=== PATIENT | female | born 1965 | race Caucasian/White ===

== ENCOUNTER 2024-05-25 13:25 | Outpatient (OUT) | payer BC, SELFPAY | END 2024-05-25 13:26 | disposition home or self-care (01) | LOC: SLEEP 13:25 | PROVIDERS: PCP Internal Medicine Cardiovascular Disease; Visit Provider Internal Medicine Cardiovascular Disease | DX: G47.33 Obstructive sleep apnea (adult) (pediatric) (principal) | CPT/HCPCS: 95806 ==

== ENCOUNTER 2025-03-17 14:08 | Outpatient (OUT) | payer BC, SELFPAY ==
--- NOTE | 2025-03-17 14:19 | MM_ITS ---
Patient Name: DIONICIO NUNEZ MR#: [id number] : 1965 Exam Date: 03/17/2025 Ordering Doctor: DR JASMINA TAVAREZ . RADIOLOGY REPORT PROCEDURE: MM TOMOSYNTHESIS SCREENING BI COMPARISON: MG MAMM SCREEN 3D ANGELICA CAD, 01/22/2021. MG MAMM SCREEN ANGELICA W CAD, 01/19/2020. MG MAMM SCREEN ANGELICA W CAD, 12/15/2018. MG MAMM ANGELICA SCRN W CAD DIG, 10/09/2007. INDICATIONS: Screening Calculator Name NCI Breast Cancer Risk Assessment Tool 5 Year Breast Cancer Risk 1.70% Lifetime Breast Cancer Risk 10.30% Personal Breast Cancer No Personal Ovarian Cancer No Treatments None Family Cancers Mother with breast cancer at age 58. LOCATION: [facility] BREAST COMPOSITION: The breasts are heterogeneously dense, which may obscure small masses. FINDINGS: Developing asymmetry in the lateral region of the left breast. Spot compression with targeted left breast ultrasound recommended. RIGHT BREAST: No significant suspicious finding. DIAGNOSTIC CATEGORY 0--INCOMPLETE: NEED ADDITIONAL IMAGING EVALUATION. RECOMMENDATIONS: ADDITIONAL MAMMOGRAPHIC VIEWS REQUIRED: LEFT BREAST - spot compression imaging ULTRASOUND: LEFT BREAST PLEASE NOTE: A NORMAL MAMMOGRAM DOES NOT EXCLUDE THE POSSIBILITY OF BREAST CANCER. A CLINICALLY SUSPICIOUS PALPABLE LUMP SHOULD BE BIOPSIED. Dictated by: Jesus Castro DO on 03/17/2025 at 15:44 Approved by: Jesus Castro DO on 03/17/2025 at 15:59
== END 2025-03-17 14:09 | disposition home or self-care (01) ==
LOC: MAMMO 14:09
PROVIDERS: PCP Nurse Practitioner; Visit Provider Family Medicine
DX: Z12.31 Encounter for screening mammogram for malignant neoplasm of breast (principal); Z80.3 Family history of malignant neoplasm of breast; R92.8 Other abnormal and inconclusive findings on diagnostic imaging of breast
CPT/HCPCS: 77063; 77067

== ENCOUNTER 2025-03-21 20:55 | Outpatient (OUT) | payer BC, SELFPAY ==
--- OUTSIDE RECORDS SUMMARY | 2024-07-01 07:30 | XMS_ITS ---
Author Organization [facility] in [place] Address [address] [place] [address] Care Team Providers Care Box Inspector Name Role Phone Corbin Cespedes Primary Care Provider Domenica Ceballos Unavailable [phone] Allergies No Known Allergies REASON FOR VISIT Sinus congestion, both ears feel full and hurt, cough, ACEVEDO, started friday - covid negative fridayand friday. declined covid/flu test here in the office Medications Medication SIG (Take, Route, Frequency, Duration) Notes Start Date End Date Status Aspirin Low Dose 81 MG Oral for 30 Days Active tiZANidine HCl 4 MG 2 tabs Orally qhs fo r 30 days 03/15/2024 Active Pantoprazole Sodium 40 mg Take 1 tablet orally once daily for 90 days Active Lisinopril 5 MG 1 tablet Orally Once a day for 30 days Active Amoxicillin-Pot Clavulanate 875-125 MG 1 tablet Orally every 12 hrs for 10 days 07/01/2024 Active Carvedilol 6.25 MG 1 tablet with food O rally Once daily for 30 days Active buPROPion HCl ER (XL) 150 MG 1 tablet in the morning Orally Once a day for 30 days Active Atorvastatin Calcium 80 MG TAKE ONE TABL ET BY MOUTH ONCE DAILY AT BEDTIME Oral for 30 Days Active Diclofenac Sodium 75 MG 1 tablet as need ed Orally Twice a day for 30 days 03/15/2024 Active Social History Tobacco Use: Social History Observation Description Date Details (start date - stop date) Former Smoker 09/01/1985 - 09/01/2021 Tobacco Use/Smoking Question Answer Notes Patient is a former smoker When did you start smoking? 09/01/1985 When did you stop smoking? 09/01/2021 Problems Problem Type SNOMED Code ICD Code Onset Dates Problem Status W/U Status Risk Notes Problem Sinusitis (68197977) Sinusitis (J32.9) Active confirmed Vital Signs Weight 250 lbs 07/01/2024 Height 64 in 07/01/2024 Blood pressure systolic 124 mm Hg 07/01/20 Blood pressure diastolic 80 mm Hg 024 Temperature 98.2 degrees Fahrenheit 07/01/20 BMI 42.91 kg/m2 07/01/2024 Encounters Encounter Location Date Provider Diagnosis [facility] [address] [place] [address] 07/01/2024 Domenica Ceballos Sinusitis J32.9 Assessments Encounter Date Diagnosis (ICD Code) Assessment Notes Treatment Notes Treatment Clinical Notes Section Notes 07/01/2024 Sinusitis (ICD-10 - J32.9) fu if not improving Plan Of Treatment Medication Medication Name Sig Start Date Stop Date Notes Amoxicillin-Pot Clavulanate 875-125 MG 1 tablet Orally every 12 hrs for 10 days 07/01/2024 Treatment Notes Assessment Notes Sinusitis fu if not improving Next Appt Details Follow Up: prn, Reason: Progress Notes * Darian NUNEZB:1965 ( 58 yo F)Acc No.[id number]:07/01/2024 Progress Note Patient: Lucinda KENDALL Provider: Vanna Ceballos ([facility]), [employer] :1965 A ge:58 Y S ex:Female Date:07/01/2024 Address:[address] [place], [place] [id number] Pcp:Corbin Cespedes Check In:11:24 AM ESTCheck O ut:11:38 AM EST Subjective: * Chief Complaints: * 1 . Sinus congestion, both ears feel full and hurt, cough, ACEVEDO, started friday - covid negative friday and friday. declined covid/flu test here in the office. * HPI: G eneral: sx started Sat sinus congestion, pain, pressure cough with sinus drainage sinus worse. * ROS: G eneral/Constitutional: Fever d enies. H eadache d enies. W eight loss?denies. O phthalmologic: Discharge d enies. E ye Pain d enies. I tching and redness d enies. E NT: Nasal discharge d enies. N dali congestion a dmits and pain pressure. S ore throat d enies. C ardiovascular: Chest tightness/ heavy pressure d enies. R apid heart rate d enies. S welling of extremities d enies. C hest pain d enies. ? R espiratory: Productive cough d enies. C hest pain d enies. C ough l ittle. S hortness of breath d enies. W heezing d enies. ? G astrointestinal: Abdominal pain d enies. C onstipation d enies. D ecreased appetite d enies. D iarrhea d enies. N ausea d enies. V omiting?denies. G enitourinary: Urinary incontinence d enies. P ainful urination d enies. M usculoskeletal: Back pain d enies. N patrick pain d enies. M uscle aches d enies. S kin: Rash d enies. S kin lesion(s) d enies. ? * Active Problem List J21.9 Acute bronchiolitis Modified On:09/22/2023W/U Status:confirmed M79.672 Left foot pain Modified On:11/19/2023W/U Status:confirmed J32.9 Sinusitis Modified On:07/01/2024W/U Status:confirmed * Medical History: A llergic rhinitis, Carpal tunnel syndrome, right, Subsequent ST elevation (STEMI) myocardial infarction of anterior wall, Sciatica. * Surgical History: C ardiac Stent placement , Right Rotator duff repair 2019, Shoulder Arthroscopy, left 09/08/13, left rotator cuff repair x2 , Rt knee meniscus repair . * Hospitalization/Major Diagno stic Procedure: s ee above . * Family History: F ather: , diagnosed with Unspecified heart disease. M other: alive, breast cancer, diagnosed with Other malignant neoplasm of unspecified site. S ister(s): alive, diagnosed with Chronic kidney disease, unspecified. D aughter(s): alive, crohns disease. 1 sister(s) - healthy. 2 daughter(s) - healthy. . * Social History: T obacco Use: T obacco Use/Smoking P atient is a f ormer smoker W lv did you start smoking? 0 09/01/1985 W lv did you stop smoking? 0 09/01/2021 * Medications: T aking Aspirin Low Dose(Aspirin) 81 MG Tablet Delayed Release Oral , Taking Atorvastatin Calcium 80 MG Tablet TAKE ONE TABLET BY MOUTH ONCE DAILY AT BEDTIME Oral , Taking buPROPion HCl ER (XL) 150 MG Tablet Extended Release 24 Hour 1 tablet in the morning Orally Once a day , Taking Carvedilol 6.25 MG Tablet 1 tablet with food Orally Once daily , Taking Diclofenac Sodium 75 MG Tablet Delayed Release 1 tablet as needed Orally Twice a day , Taking Lisinopril 5 MG Tablet 1 tablet Orally Once a day , Taking Pantoprazole Sodium 40 mg Tablet Delayed Release Take 1 tablet orally once daily , Taking tiZANidine HCl 4 MG Tablet 2 tabs Orally qhs , Medication List reviewed and reconciled with the patient * Allergies: N .K.D.A. Objective: * Vitals: W t:250lbs, Ht: 64 in, BP:124/80mm Hg, Temp:98.2F, BMI:42.91Index, Ht-cm: 162.56 cm, Wt-k.4 kg. * Examination: G eneral Examinations: GENERAL APPEARANCE: a lert and oriented, i n no acute distress. EYES: conjunctiva normal, sclera non-icteric. EARS: e xternal auditory canals are patent. Tympanic membranes are pearly ospina and mobile. NOSE: m ild congestion. THROAT: n ormal. LUNGS: c lear to auscultation bilaterally. CARDIO: r egular rate and rhythm, S1, S2 normal. MUSCULOSKELETAL G ait and station normal. SKIN: w arm and dry. Assessment: * Assessment: 1. S inusitis - J32.9 (Primary) Plan: * Treatment: * Preventive Medicine: Screenings/Counseling: B [place] ACTION PLAN Above Normal BMI Follow-up D ietary management education, guidance, and counseling * Follow Up: p rn * * Sign off status: Completed Visit Status: C HK (Check Out) true * Provider: Vanna Ceballos ([facility]), [employer] Date: 1 Generated for Radha landon/Vijay/Brayansmitting on: 0 03/21/2025 08:57 PM EDT History and Physical Notes * HPI (History of Present Illness) Category Sub-Category Detail Notes Category Not es General sx started Sat sinus congestion, pain, pressure cough with sinus drainage sinus worse Examination Category Sub-Category Detail Notes Category Not es General Examinations GENERAL APPEARANCE: alert a nd oriented, in no acute distress EYES: conjunctiva normal, sclera non-icteric EARS: external auditory ca nals are patent. Tympanic membranes are pearly ospina and mobile NOSE: mild congestion THROAT: normal CARDIO: regular rate and rhy thm, S1, S2 normal LUNGS: clear to auscultatio n bilaterally SKIN: warm and dry MUSCULOSKELETAL: Gait and station nor mal
--- OUTSIDE RECORDS SUMMARY | 2024-11-03 07:15 | XMS_ITS ---
Author Organization [facility] in [place] Address [address] [place] [address] Care Team Providers Care Manager Simulation Name Role Phone Corbin Cespedes Primary Care Provider Allergies No Known Allergies REASON FOR VISIT SELF PAY Left achilles tendon issue, has a spur there and every 6-12 months has trouble walking, cant wear tennis shoe Medications Medication SIG (Take, Route, Frequency, Duration) Notes Start Date End Date Status Diclofenac Sodium 75 MG 1 tablet as need ed Orally Twice a day for 30 days 03/15/2024 Active Lisinopril 5 MG 1 tablet Orally Once a day for 30 days Active Pantoprazole Sodium 40 mg Take 1 tablet orally once daily for 90 days Active predniSONE 20 MG 3 tablets Orally Onc e a day for 5 days 11/03/2024 Active tiZANidine HCl 4 MG 2 tabs Orally qhs fo r 30 days 03/15/2024 Active Carvedilol 6.25 MG 1 tablet with food O rally Once daily for 30 days Active Aspirin Low Dose 81 MG Oral for 30 Days Active Atorvastatin Calcium 80 MG TAKE ONE TABL ET BY MOUTH ONCE DAILY AT BEDTIME Oral for 30 Days Active buPROPion HCl ER (XL) 150 MG 1 tablet in the morning Orally Once a day for 30 days Active Social History Tobacco Use: Social History Observation Description Date Details (start date - stop date) Former Smoker 09/01/1985 - 09/01/2021 Tobacco Use/Smoking Question Answer Notes Patient is a former smoker When did you start smoking? 09/01/1985 When did you stop smoking? 09/01/2021 Vital Signs Weight 246.6 lbs 11/03/2024 Height 64 in 11/03/2024 Blood pressure systolic 120 mm Hg 11/04/19 25 Blood pressure diastolic 72 mm Hg 025 BMI 42.32 kg/m2 11/03/2024 Encounters Encounter Location Date Provider Diagnosis [facility] [address] [place] [address] 11/03/2024 Corbin Cespedes Left foot pain M79.6 72 and Achilles tendinitis M76.60 Assessments Encounter Date Diagnosis (ICD Code) Assessment Notes Treatment Notes Treatment Clinical Notes Section Notes 11/03/2024 Left foot pain (ICD-10 - M79.672) 11/03/2024 Achilles tendinitis (ICD-10 - M76.60) Plan Of Treatment Medication Medication Name Sig Start Date Stop Date Notes predniSONE 20 MG 3 tablets Orally Once a day for 5 days Progress Notes * Darian NUNEZB:1965 ( 59 yo F)Acc No.[id number]:11/03/2024 Progress Note Patient: Lucinda KENDALL Provider: Alexei Cespedes ([facility])MD :1965 A ge:59 Y S ex:Female Date:11/03/2024 Address:[address] [place], [place] [id number] Check In:11:12 AM ESTCheck O ut:11:54 AM EST Subjective: * Chief Complaints: * S ELF PAY Left achilles tendon issue, has a spur there and every 6-12 months has trouble walking, cant wear tennis shoe * HPI: D epression Screening: PHQ-2 (2015 Edition) L ittle interest or pleasure in doing things??Not at all F eeling down, depressed, or hopeless? N ot at all T otal Score 0 2 days ago - severe [pain - nothgin gthe previous day. * Active Problem List J21.9 Acute bronchiolitis Modified On:09/22/2023/U Status:confirmed M79.672 Left foot pain Modified On:11/19/2023/U Status:confirmed J32.9 Sinusitis Modified On:07/01/2024/U Status:confirmed * Medical History: * Surgical History: C ardiac Stent placement Right Rotator duff repair ould Arthroscopy, left 09/08/13left rotator cuff repair x2 Rt knee meniscus repair * Hospitalization/Major Diagno stic Procedure: s ee above * Family History: F ather: , diagnosed with Unspecified heart disease. M other: alive, breast cancer, diagnosed with Other malignant neoplasm of unspecified site. S ister(s): alive, diagnosed with Chronic kidney disease, unspecified. D brittanyhter(s): alive, crohns disease. 1 sister(s) - healthy. 2 daughter(s) - healthy. . * Social History: T obacco Use: T obacco Use/Smoking P atient is a f ormer smoker W hen did you start smoking? 0 09/01/1985 W hen did you stop smoking? 0 09/01/2021 * Medications: T akingAspirin Low Dose(Aspirin) 81 MG Tablet Delayed Release Oral Atorvastatin Calcium 80 MG Tablet TAKE ONE TABLET BY MOUTH ONCE DAILY AT BEDTIME Oral buPROPion HCl ER (XL) 150 MG Tablet Extended Release 24 Hour 1 tablet in the morning Orally Once a day Carvedilol 6.25 MG Tablet 1 tablet with food Orally Once daily Diclofenac Sodium 75 MG Tablet Delayed Release 1 tablet as needed Orally Twice a day Lisinopril 5 MG Tablet 1 tablet Orally Once a day Pantoprazole Sodium 40 mg Tablet Delayed Release Take 1 tablet orally once daily tiZANidine HCl 4 MG Tablet 2 tabs Orally qhs Taking Aspirin Low Dose(Aspirin) 81 MG Tablet Delayed Release Oral Taking Atorvastatin Calcium 80 MG Tablet TAKE ONE TABLET BY MOUTH ONCE DAILY AT BEDTIME Oral Taking buPROPion HCl ER (XL) 150 MG Tablet Extended Release 24 Hour 1 tablet in the morning Orally Once a day Taking Carvedilol 6.25 MG Tablet 1 tablet with food Orally Once daily Taking Diclofenac Sodium 75 MG Tablet Delayed Release 1 tablet as needed Orally Twice a day Taking Lisinopril 5 MG Tablet 1 tablet Orally Once a day Taking Pantoprazole Sodium 40 mg Tablet Delayed Release Take 1 tablet orally once daily Taking tiZANidine HCl 4 MG Tablet 2 tabs Orally qhs DiscontinuedAmoxicillin-Pot Clavulanate 875-125 MG Tablet 1 tablet Orally every 12 hrs Medication List reviewed and reconciled with the patientDiscontinued Amoxicillin-Pot Clavulanate 875-125 MG Tablet 1 tablet Orally every 12 hrs Medication List reviewed and reconciled with the patient * Allergies: N .K.D.A.no[Allergies Verified] Objective: * Vitals: W t:246.6lbs, Ht: 64 in, BP:120/72mm Hg, BMI:42.32Index, Ht-cm: 162.56 cm, Wt-k.86 kg. * Examination: A bdomen Exam:: L eft achilles tendernss - no erythmea. Assessment: * Assessment: 1. L eft foot pain - M79.672 (Primary) 2 . A chilles tendinitis - M76.60? Plan: * Treatment: * Procedure Codes: * Preventive Medicine: Screenings/Counseling: B [place] ACTION PLAN Above Normal BMI Follow-up D ietary management education, guidance, and counseling * * Sign off status: Completed Visit Status: C HK (Check Out) true * Provider: Alexei Cespedes ([facility])MD Date: 0 11/03/2024 Generated for Printi ng/Famelinag/eTransmitting on: 0 03/21/2025 08:56 PM EDT History and Physical Notes * HPI (History of Present Illness) Category Sub-Category Detail Notes Category Not es Depression Screening PHQ-2 (2015 Edition) Little interest or pleasure in doing things?: Not at all 2 days ago - severe [pain - nothgin gthe previous day Feeling down, depressed, or hopeless?: N ot at all Total Score: 0 Examination Category Sub-Category Detail Notes Category Not es Abdomen Exam: Left achilles tendernss - no erythmea
--- OUTSIDE RECORDS SUMMARY | 2025-03-17 13:12 | XMS_ITS ---
Author Organization [facility] in [place] Address [address] [place] [address] Care Team Providers Care Instruments Sales Representative Name Role Phone Corbin Cespedes Primary Care Provider REASON FOR VISIT Mammogram add on Encounters Encounter Location Date Provider Diagnosis [facility] [address] [place] [id number] 03/17/2025 Corbin Cespedes Abnormal mammogram R92.8 Assessments Encounter Date Diagnosis (ICD Code) Assessment Notes Treatment Notes Treatment Clinical Notes Section Notes 03/17/2025 Abnormal mammogram (ICD-10 - R92.8) Plan Of Treatment Pending Test Test Name Order Date BI MAMMOGRAM DIAGNOSTIC TOMOSYNTHESIS BI LATERAL 03/17/2025 BI US BREAST COMPLETE LEFT 03/17/2025 Progress Notes * ENRIQUE MelyssaPriyaB:1965 ( 59 yo F)Acc No.[id number]:03/17/2025 Patient: Melyssa KENDALLi :1965 A ge:59 Y S ex:Female Address:[address] [place] [address] Subjective: * Chief Complaints: * M ammogram add on * Medical History: * Surgical History: * Hospitalization/Major Diagno stic Procedure: * Medications: Objective: * Vitals: * Physical Examination: Assessment: * Assessment: 1. A bnormal mammogram - R92.8 (Primary) Plan: * Treatment: * Procedure Codes: * true * Date: Generated for Printi ng/Faxing/eTransmitting on: 0 03/21/2025 08:56 PM EDT
--- OUTSIDE RECORDS SUMMARY | 2025-03-21 20:57 | XMS_ITS | Patient Health Record ---
Author Organization The [facility] in [place] Address [address] [place] [address] Care Team Providers Care Jigger Machine Operator Name Role Phone Rubina Corbin Primary Care Provider Domenica Ceballos [phone] Allergies No Known Allergies Results Component Value Reference Range Notes MM tomosynthesis screening B I Reviewed date:03/17/2025 05:13:00 PM Interpretation: Performing Lab: Notes/Report: Source Facility: [place] [address] Mammography Report Signed Patient: LUCINDA NUNEZ MR#: [id number] : 1965 Acct:[id number] Age/Sex: 59 / F ADM Date: 03/17/25 Loc: MAMMO Attending Dr: Jasmina Tavarez M.D. Ordering Physician: Jasmina Tavarez M.D. Results: Date of Service: 03/17/25 Follow Up: Procedure(s): MM tomosynthesis screening BI Accession Number(s): [id number] cc: Jasmina Tavarez M.D.; Deborah Olmedo NP Patient Name: LUCINDA NUNEZ MR#: [id number] : 1965 Exam Date: 03/17/2025 Ordering Doctor: DR JASMINA TAVAREZ . RADIOLOGY REPORT PROCEDURE: MM TOMOSYNTHESIS SCREENING BI COMPARISON: MG MAMM SCREEN 3D ANGELICA CAD, 01/22/2021. MG MAMM SCREEN ANGELICA W CAD, 01/19/2020. MG MAMM SCREEN ANGELICA W CAD, 12/15/2018. MG MAMM ANGELICA SCRN W CAD DIG, 10/09/2007. INDICATIONS: Screening Calculator Name NCI Breast Cancer Risk Assessment Tool 5 Year Breast Cancer Risk 1.70% Lifetime Breast Cancer Risk 10.30% Personal Breast Cancer No Personal Ovarian Cancer No Treatments None Family Cancers Mother with breast cancer at age 58. LOCATION: [facility] BREAST COMPOSITION: The breasts are heterogeneously dense, which may obscure small masses. FINDINGS: Developing asymmetry in the lateral region of the left breast. Spot compression with targeted left breast ultrasound recommended. RIGHT BREAST: No significant suspicious finding. DIAGNOSTIC CATEGORY 0--INCOMPLETE: NEED ADDITIONAL IMAGING EVALUATION. RECOMMENDATIONS: ADDITIONAL MAMMOGRAPHIC VIEWS REQUIRED: LEFT BREAST - spot compression imaging ULTRASOUND: LEFT BREAST PLEASE NOTE: A NORMAL MAMMOGRAM DOES NOT EXCLUDE THE POSSIBILITY OF BREAST CANCER. A CLINICALLY SUSPICIOUS PALPABLE LUMP SHOULD BE BIOPSIED. Dictated by: Jesus Castro DO on 03/17/2025 at 15:44 Approved by: Jesus Castro DO on 03/17/2025 at 15:59 Dictated By: Jesus Castro D.O. Signed By: 03/17/25 1600 DD/ 1559 TD/TT: Certified Athletic Trainer: [place] [address] Mammography Report Signed Patient: LUCINDA NUNEZ MR#: [id number] : 1965 Acct:[id number] Age/Sex: 59 / F ADM Date: 03/17/25 Loc: MAMMO Attending Dr: Jasmina Tavarez M.D. Ordering Physician: Jasmina Tavarez M.D. Results: Date of Service: Follow Up: Procedure(s): MM deven osynthesis screening BI Accession Number(s): [id number] cc: Jasmina Tavarez M.D. ; Deborah Olmedo NP Patient Name: LUCINDA NUNEZ MR#: [id number] : 1965 Exam Date: 03/17/2025 Ordering Doctor: DR JASMINA TAVAREZ . RADIOLOGY REPORT PROCEDURE: MM TOMOSY NTHESIS SCREENING BI COMPARISON: MG MAMM SCREEN 3D ANGELICA CAD, 01/22/2021. MG MAMM SCREEN ANGELICA W CAD, 01/19/2020. MG M AMM SCREEN ANGELICA W CAD, 12/15/2018. MG MAMM ANGELICA SCRN W CAD DIG, 10/09/2007. INDICATIONS: Screening Calculator Name NCI Breast Cancer Risk Assessment Tool 5 Year Breast Cancer Risk 1.70% Lifetime Breast Canc er Risk 10.30% Personal Breast Cancer No Personal Ovarian Cancer No Treatments None Family Cancers Dalia dewitt with breast cancer at age 58. LOCATION: [facility] BREAST COMPOSITION: The breasts are heterogeneously dense, which may obscure small masses. FINDINGS: Developing asymmetry in the lateral region of the left breast. Spot compression wit h targeted left breast ultrasound recommended. RIGHT BREAST: No sig nificant suspicious finding. DIAGNOSTIC CATEGORY 0--INCOMPLETE: NEED ADDITIONAL IMAGING EVALUATION. RECOMMENDATIONS: ADDITIONAL MAMMOGRAP HIC VIEWS REQUIRED: LEFT BREAST - spot compression imaging ULTRASOUND: LEFT BREAST PLEASE NOTE: A LUIS ENRIQUE L MAMMOGRAM DOES NOT EXCLUDE THE POSSIBILITY OF BREAST CANCER. A CLINICALLY SUSPICIOUS PALPABLE LUMP SHOULD BE BIOPSIED. Dictated by: Jesus Castro DO on 03/17/2025 at 15:44 Approved by: Jesus Castro DO on 03/17/2025 at 15:59 Dictated By: Jesus Castro DJudy. Signed By: 03/17/25 1600 DD/ 1559 TD/TT: Certified Athletic Trainer: Reason For Referral No Information Medications Medication SIG (Take, Route, Frequency, Duration) Notes Start Date End Date Status Carvedilol 6.25 MG 1 tablet with food O rally Once daily for 30 days Active Diclofenac Sodium 75 MG 1 tablet as need ed Orally Twice a day for 30 days 03/15/2024 Active buPROPion HCl ER (XL) 150 MG 1 tablet in the morning Orally Once a day for 30 days Active Lisinopril 5 MG 1 tablet Orally Once a day for 30 days Active predniSONE 20 MG 3 tablets Orally Onc e a day for 5 days 11/03/2024 Active tiZANidine HCl 4 MG 2 tabs Orally qhs fo r 30 days 03/15/2024 Active Pantoprazole Sodium 40 mg Take 1 tablet orally once daily for 90 days Active Aspirin Low Dose 81 MG Oral for 30 Days Active Atorvastatin Calcium 80 MG TAKE ONE TABL ET BY MOUTH ONCE DAILY AT BEDTIME Oral for 30 Days Active Social History Tobacco Use: Social History Observation Description Date Details (start date - stop date) Former Smoker 09/01/1985 - 09/01/2021 Tobacco Use/Smoking Question Answer Notes Patient is a former smoker When did you start smoking? 09/01/1985 When did you stop smoking? 09/01/2021 Alcohol Screen (Audit-C) Question Answer Notes Did you have a drink containing alcohol in the p ast year? No Points 0 Interpretation Negative AUDIT-C (Standard) Question Answer Notes Did you have a drink containing alcohol in the p ast year? No Points 0 Interpretation Negative Problems Problem Type SNOMED Code ICD Code Onset Dates Problem Status W/U Status Risk Notes Problem Sinusitis (56866838) Sinusitis (J32.9) Active confirmed Problem Pain in left foot ([id number]) Left foot pain (M79.672) Active confirmed Problem Acute bronchiolitis (3682416) Acute bronchiolitis (J21.9) Active confirmed Vital Signs Temperature 98.2 degrees Fahrenheit 07/01/2024 Blood pressure diastolic 72 mm Hg 11/03/2024 Height 64 in 11/03/2024 Blood pressure systolic 120 mm Hg 11/03/2024 Weight 246.6 lbs 11/03/2024 BMI 42.32 kg/m2 11/03/2024 Encounters Encounter Location Date Provider Diagnosis [address] [address] 07/01/2024 Domenica Ceballos Sinusitis J32.[address] [address] 11/03/2024 Corbin Hoy Left foot pain M79.672 and Achilles tendinitis M76.[address] [address] 03/17/2025 Corbin Hoy Abnormal mammogram R92.8 Assessments Encounter Date Diagnosis (ICD Code) Assessment Notes Treatment Notes Treatment Clinical Notes Section Notes 07/01/2024 Sinusitis (ICD-10 - J32.9) fu if not improving 11/03/2024 Left foot pain (ICD-10 - M79.672) 11/03/2024 Achilles tendinitis (ICD-10 - M76.60) 03/17/2025 Abnormal mammogram (ICD-10 - R92.8) Plan Of Treatment Pending Test Test Name Order Date CMP (COMPLETE METABOLIC PANEL) 03/20/202 4 HEMOGLOBIN A1C (GLYCO) 11/19/2023 IRON, TOTAL 11/19/2023 LIPID PANEL (CHOL/TRIG/HDL/LDL) 11/19/19 24 CBC WITH DIFF 11/19/2023 Insulin Level 11/19/2023 STOOL OCCULT BLOOD 11/19/2023 XR FOOT LT MIN 3 VIEWS 11/19/2023 THYROID PANEL (T4/TSH/FREE T3) BI MAMMOGRAM DIAGNOSTIC TOMOSYNTHESIS BI LATERAL 03/17/2025 BI US BREAST COMPLETE LEFT 03/17/2025 Medications Administered Medication Instructions Date of Administration Dosage Notes Ketorolac Tromethamine 03/15/2024 60 mg 60 Orphenadrine Citrate 03/15/2024 60 mg 50 Medical (General) History Medical History History ICD Code Allergic rhinitis J30.9 Carpal tunnel syndrome, right G56.[address] elevation (STEMI) myocardi al infarction of anterior wall I22.0 Sciatica M54.30 Surgical History Surgery Date(Month/Year) Rt knee meniscus repair left rotator cuff repair x2 Shoulder Arthroscopy, left 09/08/13 Right Rotator duff repair 2020 Cardiac Stent placement Hospitalization History Reason Date(Month/Year) see above
--- OUTSIDE RECORDS SUMMARY | 2025-03-21 20:57 | XMS_ITS | Encounter Summary ---
Author Organization [facility] Address [address] [place] [address] Phone Care Team Providers Care Truck Loader And Unloader Name Role Phone Cesar Cespedes MD Primary Care Provider [phone] Encounter Details Date Type Department Care Team (Late st Contact Info) Description 02/28/2021 Orders Only [facility] [address] [place] [address] Conversion, Onbase Social History Tobacco Use Types Packs/Day Years Used Date Smoking Tobacco: Never Assessed Comments Unknown Sex and Gender Information Value Date Recorded Sex Assigned at Not on file Legal Sex Female 11:18 AM EST Gender Identity Not on file Sexual Orientation Not on file documented as of this encounter Plan of Treatment Upcoming Encounters Date Type Department Care Team (Late st Contact Info) Description 02/14/2026 1:40 PM EDT Office Visit [facility] [address] [facility] [address] [place] [address] Sy Hanks DO [address] [facility] 2, [facility] [address] [place] [address] Scheduled Orders Name Type Priority Associated Diagnoses Orde r Schedule OUTSIDE LAB SCAN Lab Ordered: 02/28/2021 documented as of this encounter Visit Diagnoses Not on filedocumented in this encounter Care Teams Truck Loader And Unloader Relationship Specialty Start Date End Date Cesar Cespedes MD [address] [facility] [place] [place] [address] PCP - General 10/14/19 documented as of this encounter
--- OUTSIDE RECORDS SUMMARY | 2025-03-21 20:57 | XMS_ITS | Clinical Summary ---
Author Organization [facility] Address [address] [place], [place] [address] Care Team Providers Care Supervisor Last Model Department Name Role Phone Cesar Cespedes MD Primary Care Provider [phone] Allergies No known active allergies Medications diclofenac, EC, (VOLTAREN) 75 mg EC tablet Take 75 mg by mouth twice daily. Active citalopram (CELEXA) 40 mg tablet Take 40 mg by mouth once daily. Active Active Problems Problem Noted Date Diagnosed Date Rotator cuff tear 12/05/2014 Social History Tobacco Use Types Packs/Day Years Used Date Smoking Tobacco: Every Day Cigarettes 1 35 Alcohol Use Standard Drinks/Week Comments Yes 0 (1 standard drink = 0.6 oz pur e alcohol) on occasion Comments Unknown Sex and Gender Information Value Date Recorded Sex Assigned at Not on file Legal Sex Female 3:18 PM EDT Gender Identity Not on file Sexual Orientation Not on file Last Filed Vital Signs Vital Sign Reading Time Taken Comments Blood Pressure - - Pulse - - Temperature - - Respiratory Rate - - Oxygen Saturation - - Inhaled Oxygen Concentration - - Weight 104.3 kg (230 lb) 12/05/2014 1:27 PM EDT Height 162.6 cm (5' 4 ) 12/05/2014 1:27 PM EDT Body Mass Index 39.48 12/05/2014 1:27 PM EDT Plan of Treatment Health Maintenance Due Date Last Done Comments Anxiety Screening 1984 Depression Screening 1984 HIV Screening 1984 Hepatitis C Screening 1984 DTaP,Tdap,Td Vaccine (1 - Tdap) 1985 Hepatitis B Vaccine (1 of 3 - 19+ 3-dose series) 08/31 Cervical Cancer Screening [address] Colonography 2011 Cologuard (FIT-DNA) 2011 Colonoscopy 2011 Colorectal Cancer Screening 2011 Diabetes Screening 2011 Fecal Occult Blood 2011 Lipid Screening 2011 Sigmoidoscopy 2011 Pneumococcal Vaccine: 50+ (1 of 1 - PCV) 2016 Shingrix Vaccine (1 of 2) 2016 Covid-19 Vaccine (1 - 2023- season) 2024 Influenza Vaccine (#1) 2025 Insurance [employer] BCBS MEDICAID [place] Care Teams Supervisor Last Model Department Relationship Specialty Start Date End Date Cesar Cespedes MD PCP - General Family Medicine 11/28/14
--- OUTSIDE RECORDS SUMMARY | 2025-03-21 20:57 | XMS_ITS | Patient Health Record ---
Author Organization [facility] Address [address] [place] [address] Care Team Providers Care Transmission Specialist Name Role Phone MileYash yoogonsalo Primary Care Provider Reason For Referral No Information Plan Of Treatment No Information Insurance Providers Payer Name Payer Address Payer Phone Subscriber Number Group Number Insured Name Patient Relationship to Insured Coverage Start Date Coverage End Date [facility] Medicaid [address] [place] [address] [id number] DIONICIO NUNEZ Self - patient is the insured 3 Wrap [employer] [place] BCBS [address] [place] [address] [id number] DIONICIO NUNEZ Self - patient is the insured 3 zDENTAL DQ [employer] -termed 22 [address] [place] [address] [id number] DIONICIO NUNEZ Self - patient is the insured 1 3 zDental MEDICAID CFC after [employer] -termed 22 [address] [place] [address] [id number] DIONICIO NUNEZ Self - patient is the insured 1 3 zPARAMOUN T ADVANTAGE -termed 22 [address] [place] [address] [id number] DIONICIO NUNEZ Self - patient is the insured 1 3 zMEDICAID CFC after [employer]AMOUNT -termed 22 [address] [place] [address] [id number] DIONICIO NUNEZ Self - patient is the insured 1 3 Dental [place] DQ Terminate d 24 [address] [place] [address] [id number] DIONICIO NUNEZ Self - patient is the insured 3 Dental Wrap [employer] [place] BCBS [address] [place] [address] [id number] DIONICIO NUNEZ Self - patient is the insured 3
--- OUTSIDE RECORDS SUMMARY | 2025-03-21 20:57 | XMS_ITS | Clinical Summary ---
Author Organization [facility] Address [address] [place] [address] Phone Care Team Providers Care Hand Mixer Name Role Phone Cesar Cespedes MD Primary Care Provider [phone] Allergies No known active allergies Medications buPROPion XL (Wellbutrin XL) 150 mg 24 hr tablet 1 tablet (150 mg) once daily. 4 Active pantoprazole (ProtoNix) 40 mg EC tablet Take 1 tablet (40 mg) by mouth once daily. 0 Active aspirin 81 mg EC tabletIndications:C oronary artery disease involving [place]gi[place] coronary artery of [place] heart without angina pectoris Take 1 tablet (81 mg) by mouth once daily. as directed 90 tablet 3 5 02/01/20 26 Active atorvastatin (Lipitor) 80 mg tabletIndications:M ixed hyperlipidemia Take 1 tablet (80 mg) by mouth once daily at bedtime. 90 tablet 3 5 02/15/20 26 Active lisinopril 5 mg tabletIndications:C oronary artery disease involving [place]gi[place] coronary artery of [place] heart without angina pectoris Take 1 tablet (5 mg) by mouth once daily. 90 tablet 3 5 02/15/20 26 Active nitroglycerin (Nitrostat) 0.4 mg SL tabletIndications:C oronary artery disease involving [place]gi[place] coronary artery of [place] heart without angina pectoris Place 1 tablet (0.4 mg) under the tongue every 5 minutes if needed for chest pain. 90 tablet 3 5 Active carvedilol (Coreg) 3.125 mg tabletIndications:C oronary artery disease involving [place]gi[place] coronary artery of [place]gi[place] heart without angina pectoris Take 1 tablet (3.125 mg) by mouth 2 times daily (morning and late afternoon). 60 tablet 11 5 02/15/20 26 Active Active Problems Problem Noted Date Diagnosed Date Hypersomnolence 02/14/2025 Assessment & Plan (02/15/2025 2:52 PM EDT): Hypersomnolence, BMI 42. She reports a positive nocturnal sleep study approximately 1 year ago, unfortunately she did not have insurance to follow-up with the inpatient testing. Will refer back over to sleep clinic for evaluation management. BMI 40.0-44.9, adult (Multi) 04/13/2024 Assessment & Plan (02/15/2025 2:51 PM EDT): Reviewed the merits of healthy lifestyle choices on overall cardiovascular health. Former smoker 04/13/2024 Carpal tunnel syndrome of right wrist 02/06/2024 Coronary artery disease invo lving togiak coronary artery of [place] heart without angina pectoris 02/06/2024 Assessment & Plan (02/15/2025 2:51 PM EDT): February 26, 2021 acute anterior STEMI managed emergently Dr. Hanks. Mid LAD PCI 6 Lawrence 3.5 x 22 mm Proximal RCA 30-50% Otherwise no residual coronary artery disease. Her prior angina symptom was hand and shoulder pain-denies any reoccurrence. Current daily activity greater than 4 METS Mixed hyperlipidemia 02/06/2024 Assessment & Plan (02/15/2025 2:51 PM EDT): High intensity statin We will be checking labs HTN (hypertension) 02/06/2024 Assessment & Plan (02/15/2025 2:51 PM EDT): Optimal in office S/P PTCA (percutaneous transluminal coronary ang ioplasty) 02/06/2024 Encounters Date Type Department Care Team Description 02/14/2025 1:30 PM EDT Office Visit [place] [address] [facility] [address] [place] [address] Deborah Olmedo, WATER PLANT OPERATOR-HELP DESK INTERNSHIP Hypersomnolence (Primary Dx); Mixed hyperlipidemia; Coronary artery disease involving togiak coronary artery of [place] heart without angina pectoris; Hypertension, unspecified type; BMI 40.0-44.9, adult (Multi) 02/14/2025 Travel 01/27/2025 Refill [facility] [address] [place] [address] Sy Hanks DO Coronary artery disease involving togiak coronary artery of [place]gi[place] heart without angina pectoris 01/27/2025 Refill [facility] [address] [place] [address] Sy Hanks, Hyperlipidemia, unspecified hyperlipidemia type; Coronary artery disease involving togiak coronary artery of [place]gi[place] heart without angina pectoris from Last 3 Months Immunizations Immunization Administration Dates Next Due Pfizer Purple Cap SARS-CoV-2 09/07/2021,12/06/19,11/13/2020 Family History Medical History Relation Name Comments Heart disease Father Breast cancer Mother Kidney disease Sister Relation Name Status Comments Father Mother Sister Social History Tobacco Use Types Packs/Day Years Used Date Smoking Tobacco: Former Cigarettes Smokeless Tobacco: Never Tobacco Cessation:Counseling Given: Not Answered Alcohol Use Standard Drinks/Week Comments Yes 0 (1 standard drink = 0.6 oz pur e alcohol) once in awhile Comments Unknown Sex and Gender Information Value Date Recorded Sex Assigned at Not on file Legal Sex Female 11:18 AM EST Gender Identity Not on file Sexual Orientation Not on file Last Filed Vital Signs Vital Sign Reading Time Taken Comments Blood Pressure 114/72 02/14/2025 1:33 PM EDT Pulse 75 02/14/2025 1:33 PM EDT Temperature 36.2 C (97.2 F) 03/10/2020 6:02 AM EDT Respiratory Rate 16 03/10/2020 6:02 AM EDT Oxygen Saturation - - Inhaled Oxygen Concentration - - Weight 112 kg (246 lb) 02/14/2025 1:33 PM EDT Height 162.6 cm (5' 4 ) 02/14/2025 1:33 PM EDT Body Mass Index 42.23 02/14/2025 1:33 PM EDT Plan of Treatment Upcoming Encounters Date Type Department Care Team (Late st Contact Info) Description 02/14/2026 1:40 PM EDT Office Visit [facility] [address] [facility] [address] [place] [address] Sy Hanks DO [address] [facility] [address] [place] [address] Health Maintenance Due Date Last Done Comments CT Colonography 1966 Colonoscopy 1966 Colorectal Cancer Screening 1966 FIT-DNA (Cologuard) 1966 FIT 1966 HIV Screening 1966 Lipid Panel 1966 Sigmoidoscopy 1966 Yearly Adult Physical 1966 MMR Vaccines (1 of 1 - Standard series) 1967 Hepatitis C Screening 1984 Hepatitis B Vaccines (1 of 3 - 19+ 3-dose series) 1985 Pneumococcal Vaccine (1 of 2 - PCV) 1985 Cervical Cancer Screening 1987 HPV/Cotest 1987 Pap Smear 1987 Mammogram 2006 Zoster Vaccines (1 of 2) 2016 Diabetes Screening 10/14/2020 10/14/2019 COVID-19 Vaccine (4 - 2023-2 5 season) 2024 09/07/2021, 12/05/2020, 11/13/2020 Influenza Vaccine (#1) 2025 DTaP/Tdap/Td Vaccines (2 - Tdap) 08/12/2032 08/12/2022 HIB Vaccines Aged Out No longer eligi ble based on patient's age to complete this topic HPV Vaccines Aged Out No longer eligi ble based on patient's age to complete this topic Hepatitis A Vaccines Aged Out No long er eligible based on patient's age to complete this topic IPV Vaccines Aged Out No longer eligi ble based on patient's age to complete this topic Meningococcal Vaccine Aged Out No jeanine santiago eligible based on patient's age to complete this topic Rotavirus Vaccines Aged Out No longer eligible based on patient's age to complete this topic Medical Devices Implanted Type Area Fabric Worker Supervisor Device Identifier Shelf Expiration Date Model / Serial / Lot Button, Biceps 2.6 X 12mm Case [id number] Implanted:Qty: 1 on 10/26/2019 by Jack Becerra MD Implant [employer] 12/30/2023 [id number] / / [id number] Description:Converted from [facility]. Please see archived information for full log information. [place], Biocomposite Corkscrew Ft, 5.5 X 14.7mm, W/Two 1.3 S Case [id number] Implanted:Qty: 1 on 10/26/2019 by Jack Becerra MD Implant [employer] 2021 [id number] / / [id number] Description:Converted from [facility]. Please see archived information for full log information. Drill Pin, Button, Biceps, 3.2mm Case [id number] Implanted:Qty: 1 on 10/26/2019 by Jack Becerra MD Implant [employer] [id number] / / Description:Converted from [employer] [facility] [employer] [facility]. Please see archived information for full log information. Procedures Procedure Name Priority Date/Time Associated Diagnosis Comments COMPREHENSIVE METABOLIC PANEL Routine 10/14/2019 12:10 PM EST from Last 3 Months or Most Recently Relevant to Health Maintenance Results * Comprehensive Metabolic Panel (10/14/2019 12:10 PM EST) Glucose 76 74 - 99 mg/dL [facility] Sodium 142 136 - 145 mmol/L [facility] Potassium 4.1 3.5 - 5.3 mmol/L [facility] Chloride 106 98 - 107 mmol/L [facility] Bicarbonate 28 21 - 32 mmol/L [facility] Anion Gap 12 10 - 20 mmol/L [facility] Urea Nitrogen 13 6 - 23 mg/dL [facility] Creatinine 0.90 0.50 - 1.05 mg/dL [facility] GLOMERULAR FILTRATION RATE-NON >60 >60 mL/min/1.7 3m2 [facility] GLOMERULAR FILTRATION RATE- >60 >60 mL/min/1.7 2 [facility] Comment: CALCULATIONS OF ESTIMATED GFR ARE PERFORMED USING THE MDRD STUDY EQUATION FOR THE IDMS-TRACEABLE CREATININE METHODS. CLIN CHEM 2007;53:766-72 Calcium 9.0 8.6 - 10.3 mg/dL [facility] Albumin 4.3 3.4 - 5.0 g/dL [facility] Alkaline Phosphatase 90 33 - 110 U/L [facility] Total Protein 7.1 6.4 - 8.2 g/dL [facility] AST 12 9 - 39 U/L [facility] Total Bilirubin 0.3 0.0 - 1.2 mg/dL [facility] ALT (SGPT) 11 7 - 45 U/L [facility] Comment: Patients treated with Sulfasalazine may generate falsely decreased results for ALT. 10/14/2019 12:1 0 PM EST 10/14/2019 1:02 PM EST us Jack Becerra MD LAB BLOOD ORDERABLES Final R esult [facility] from Last 3 Months or Most Recently Relevant to Health Maintenance Insurance Care Teams Hand Mixer Relationship Specialty Start Date End Date Cesar Cespedes MD [address] [place] [address] PCP - General 10/14/19
--- OUTSIDE RECORDS SUMMARY | 2025-03-21 20:57 | XMS_ITS | Encounter Summary ---
Author Organization [facility] Address [address] [place] [address] Phone Care Team Providers Care Business Lawyer Name Role Phone Cesar Cespedes MD Primary Care Provider [phone] Encounter Details Date Type Department Care Team (Late st Contact Info) Description 05/12/2021 Orders Only [facility] [address] [place] [address] Conversion, Onbase Social History Tobacco Use Types [...] Description 02/14/2026 1:40 PM EDT Office Visit [facility] [address] [facility] [address] [place] [address] Sy Hanks DO [address] [facility] 2, [facility] [address] [place] [address] Scheduled Orders Name Type Priority Associated Diagnoses Orde r Schedule OUTSIDE LAB SCAN Lab Ordered: 05/12/2021 documented as of this encounter Visit Diagnoses Not on filedocumented in this encounter Care Teams Business Lawyer Relationship Specialty Start Date End Date Cesar Cespedes MD [address] [facility] [place] [address] PCP - General 10/14/19 documented as of this encounter
--- OUTSIDE RECORDS SUMMARY | 2025-03-21 20:57 | XMS_ITS | Encounter Summary ---
Author Organization [facility] Address [address] [place] [address] Phone Care Team Providers Care Risk And Insurance Manager Name Role Phone Cesar Cespedes MD Primary Care Provider [phone] Encounter Details Date Type Department Care Team (Late st Contact Info) Description 06/08/2024 Scanned Document [facility] [address] [place] [id number] Scanning, Generic Provider Social History Tobacco Use Types Packs/Day Years Used Date Smoking Tobacco: Former Cigarettes Smokeless Tobacco: Never Alcohol Use Standard Drinks/Week Comments Yes 0 [...] Description 02/14/2026 1:40 PM EDT Office Visit [facility] [address] [facility] [address] [place] [phone] Sy Hanks DO [address] [facility] [address] [place] [address] documented as of this encounter Visit Diagnoses Not on filedocumented in this encounter Care Teams Risk And Insurance Manager Relationship Specialty Start Date End Date Cesar Cespedes MD [address] [facility] [place] [address] PCP - General 10/14/19 documented as of this encounter
--- OUTSIDE RECORDS SUMMARY | 2025-03-21 20:57 | XMS_ITS | CCD ---
Author Organization [facility] Care Team Providers Care Financial Aid Director Name Role Phone ZANOTTI, JAZMIN Unavailable Unavailable HOY, JASMINA M Unavailable Unavailable ZANOTTI, JAZMIN Unavailable Unavailable HOY, JASMINA M Unavailable Unavailable ZANOTTI, JAZMIN Unavailable Unavailable HOY, JASMINA M Unavailable Unavailable ZANOTTI, JAZMIN Unavailable Unavailable HOY, JASMINA M Unavailable Unavailable ZANOTTI, JAZMIN Unavailable Unavailable HOY, JASMINA M Unavailable Unavailable ZANOTTI, JAZMIN Unavailable Unavailable HOY, JASMINA M Unavailable Unavailable Zanotti, Jazmin Unavailable Unavailable Hoy, Jasmina M Unavailable Unavailable Theo Starks Unavailable Unavailable Homady, Lizz Unavailable Unavailable Hoy, Jasmina M Unavailable Unavailable Unavailable ORI ARCHIBALD Admitting Unavailable DR JASMINA CESPEDES Primary Care Unavailable ORI ARCHIBALD Attending Unavailable ORI ARCHIBALD Consulting Unavailable CORBY, DR FREEDMAN Admitting Unavailable CORBY, DR FREEDMAN Attending Unavailable CORBY, DR FREEDMAN Consulting Unavailable DR JASMINA CESPEDES Primary Care Unavailable ALBARO JOHNSON Attending Unavailable CORBY, DR FREEDMAN Primary Care Unavailable ALBARO JOHNSON Admitting Unavailable Domenica Ramos Unavailable MD Jasmina Cespedes Primary Care Provider [phone] SOMMER Ramos Attending Provider Domenica Ramos Attending Unavailable Domenica Ramos Admitting Unavailable Jasmina Cepsedes Primary Care Unavailable Jasmina Cespedes MD Primary Care Provider [phone] Jasmina Cespedes MD Primary Care Provider GRETCHEN PERSON Attending Unavailable JASMINA CESPEDES Primary Care Unavailable ALBARO OLMEDO Attending Unavailable JASMINA CESPEDES Primary Care Unavailable Medications Current Medications Medication Drug Class(es) Dates Sig (Normalized) Sig (Original) amoxicillin 875 mg / clavulanate 125 mg oral tablet (1 source) Penicillin-class Antibacterial Start: 07-27-2023 take 1 tablet by mouth every twelve hours Amoxicillin-Pot Clavulanate 875-125 MG 1 tablet Orally every 12 hrs for 10 day(s) Jul, Active aspirin 81 mg delayed release oral tablet (15 sources) Platelet Aggregation Inhibitor, Nonsteroidal Anti-inflammatory Drug Start: 01-31-2025 End: 01-31-2026 take 1 tablet by mouth once daily aspirin 81 mg EC tablet Indications: Coronary artery disease involving [place] coronary artery of [place] heart without angina pectoris Take 1 tablet (81 mg) by mouth once daily. as directed 90 tablet 3 01/31/2025 01/31/2026 Active Start: 02-28-2021 End: 04-13-2024 take 1 tablet by mouth once daily aspirin 81 mg EC tablet Indications: Coronary artery disease involving [place] coronary artery of [place] heart without angina pectoris TAKE ONE TABLET BY MOUTH ONCE DAILY DIRECTED 30 tablet 11 02/11/2024 Active take 1 tablet by edwin th every twenty-four hours Aspirin 81 MG 1 tablet Orally Once a day Active atorvastatin 80 mg oral tablet (14 sources) HMG-CoA Reductase Inhibitor Start: 01-31-2025 End: 02-14-2026 take 1 tablet by mouth once daily at bedtime atorvastatin (Lipitor) 80 mg tablet Indications: Mixed hyperlipidemia Take 1 tablet (80 mg) by mouth once daily at bedtime. 90 tablet 3 02/14/2025 02/14/2026 Active Start: 02-28-2021 End: 04-13-2024 take 1 tablet by mouth once daily at bedtime atorvastatin (Lipitor) 80 mg tablet Indications: Hyperlipidemia, unspecified hyperlipidemia type TAKE ONE TABLET BY MOUTH ONCE DAILY AT BEDTIME 30 tablet 11 02/11/2024 Active benzonatate 200 mg oral capsule (1 source) Non-narcotic Antitussive Start: 07-27-2023 take 1 capsule by mouth every eight hours Benzonatate 200 MG 1 capsule Orally Three times a day Jul, Active 24 hr buPROPion hydrochloride 150 mg extended release oral tablet (12 sources) Aminoketone Start: 01-07-2024 buPROPion XL (Wellbutrin XL) 150 mg 24 hr tablet 1 tablet (150 mg) once daily. 01/07/2024 Active Start: 02-26-2021 take 1 tablet by edwin th once daily buPROPion HCl ER (XL) 300 MG Oral Tablet Extended Release 24 Hour TAKE 1 TABLET DAILY DIRECTED. Quantity: 0 Refills: 0 Ordered: 18-Jul-2021 DO Start : 18-Jul-2021 Active take 1 tablet by edwin th every twenty-four hours buPROPion HCl ER (SR) 150 MG 1 tablet in the morning Orally Once a day Active carvedilol 3.125 mg oral tablet (14 sources) alpha-Adrenergic Santos, beta-Adrenergic Santos Start: 02-14-2025 End: 02-14-2026 take 1 tablet by mouth twice daily carvedilol (Coreg) 3.125 mg tablet Indications: Coronary artery disease involving [place] coronary artery of [place] heart without angina pectoris Take 1 tablet (3.125 mg) by mouth 2 times daily (morning and late afternoon). 60 tablet 11 02/14/2025 02/14/2026 Active Start: 01-31-2025 End: 02-14-2025 take 1 tablet by mouth once daily carvedilol (Coreg) 6.25 mg tablet Indications: Coronary artery disease involving [place] coronary artery of [place] heart without angina pectoris Take 1 tablet (6.25 mg) by mouth once daily. 90 tablet 3 01/31/2025 02/14/2025 Discontinued (Dose adjustment) Start: 02-11-2024 carvedilol (Co reg) 6.25 mg tablet Indications: Coronary artery disease involving [place] coronary artery of [place] heart without angina pectoris TAKE 1 TABLET DAILY 30 tablet 11 02/11/2024 Active Start: 02-28-2021 take 1 tablet by edwin th once daily Carvedilol 6.25 MG Oral Tablet Take 1 tablet daily Quantity: 90 Refills: 3 Ordered: 10-Mar-2023 Gretchen Person DO Start : 10-Mar-2023 Active doc aware one daily Start: 02-28-2021 End: 04-13-2024 take 1 tablet by mouth twice daily at mealtime Carvedilol 6.25 MG Oral Tablet TAKE ONE TABLET BY MOUTH TWICE A DAY WITH MEALS FOR 30 DAYS Quantity: 60 Refills: 0 Ordered: 28-Mar-2021 DO Start : 28-Feb-2021 Active fluticasone propionate 0.05 mg/actuat metered dose nasal spray (1 source) Corticosteroid Start: 07-27-2023 take 2 spray(s) nasal route once daily Fluticasone Propionate 50 MCG/ACT 2 sprays Nasally Once a day for 14 day(s) Jul, Active lisinopril 5 mg oral tablet (14 sources) Angiotensin Converting Enzyme Inhibitor Start: 01-31-2025 End: 02-14-2026 take 1 tablet by mouth once daily lisinopril 5 mg tablet Indications: Coronary artery disease involving [place] coronary artery of [place] heart without angina pectoris Take 1 tablet (5 mg) by mouth once daily. 90 tablet 3 02/14/2025 02/14/2026 Active Start: 02-28-2021 End: 04-13-2024 take 1 tablet by mouth once daily lisinopril 5 mg tablet Indications: Coronary artery disease involving [place] coronary artery of [place] heart without angina pectoris TAKE ONE TABLET BY MOUTH ONCE DAILY 30 tablet 11 02/11/2024 Active methylPREDNISolone 4 mg oral tablet (5 sources) Corticosteroid Start: 07-27-2023 Medrol 4 MG as directed Orally As Directed for 6 days Jul, Active Start: 05-12-2023 Medrol 4 MG as directed Orally As Directed for 6 days May, Active Start: 12-23-2019 methylPREDNISo lone 4 MG Oral Tablet Therapy Pack Please dispense one dosepack. Take as directed Quantity: 1 Refills: 0 Jazmin Bush MD Start : 23-Dec-2019 Active 21 Tablet Pack nitroglycerin 0.4 mg sublingual tablet (10 sources) Nitrate Vasodilator Start: 02-28-2021 End: 03-16-2025 nitroglycerin (Nitrostat) 0.4 mg SL tablet Indications: Coronary artery disease involving [place] coronary artery of [place] heart without angina pectoris Place 1 tablet (0.4 mg) under the tongue every 5 minutes if needed for chest pain. 90 tablet 3 02/14/2025 03/16/2025 Active pantoprazole 40 mg delayed release oral tablet (12 sources) Proton Pump Inhibitor Start: 07-24-2020 take 1 tablet by mouth once daily pantoprazole (ProtoNix) 40 mg EC tablet Take 1 tablet (40 mg) by mouth once daily. 07/24/2020 Active Completed/Discontinued Medications Medication Drug Class(es) Dates Sig (Normalized) Sig (Original) acetaminophen 325 mg / HYDROcodone bitartrate 5 mg oral tablet (2 sources) Opioid Agonist Start: 03-09-2020 HYDROcodone-Aceta minophen 5-325 MG Oral Tablet Take 1 tablet PO every 6-8 hours as needed for pain Quantity: 20 Refills: 0 Susan INGRAM Lizz Start : 09-Mar-2020 Active amoxicillin 500 mg oral capsule (2 sources) Penicillin-class Antibacterial Start: 01-25-2023 take 1 capsule by mouth every eight hours Amoxicillin 500 MG 1 capsule Orally three times a day for 10 day(s) December, Not-Taking hydrocortisone 10 mg/ml / neomycin 3.5 mg/ml / polymyxin b [id number] unt/ml otic suspension (2 sources) Aminoglycoside Antibacterial, Polymyxin-class Antibacterial, Corticosteroid Start: 01-25-2023 Neomycin-Polymyxi n-HC 3.5-11238-8 3 drops right ear Three times a day for 7 days December, Not-Taking ibuprofen 800 mg oral tablet (5 sources) Nonsteroidal Anti-inflammatory Drug Start: 02-26-2021 End: 02-28-2021 take 800 mg by mouth four times daily Ibuprofen Discontinued 800 MG PO Four times daily February 26, 2021 12:00am February 28, 2021 3:28pm Motrin TABS Refi lls: 0 Active ticagrelor 90 mg oral tablet (3 sources) Start: 02-28-2021 take 1 tablet by mouth twice daily Brilinta 90 MG Oral Tablet TAKE 1 TABLET Twice daily Quantity: 180 Refills: 3 Ordered: 14-Feb-2022 Gretchen Person DO Start : 28-Feb-2021 Active Problems Active Problems Problem Classification Problem Date Documented Date Episodic/Chronic Acute myocardial infarction (1 source) Acute myocardial infarction of anterior wall; Translations: [ST elevation (STEMI) myocardial infarction involving other coronary artery of anterior wall] 02-26-2021 Chronic Blindness and vision defects (6 sources) Disorder of vision; Translations: [Problems with sight] Chronic Coronary atherosclerosis and other heart disease (14 sources) Coronary atherosclerosis; Translations: [Coronary atherosclerosis of [place] coronary artery] Onset: 02-06-2024 04-13-2024 Chronic Disorders of lipid metabolism (14 sources) Hyperlipidemia; Translations: [Other and unspecified hyperlipidemia] Onset: 02-06-2024 4 Chronic E Codes: Cut/pierceb (1 source) Contact with sharp glass, initial encounter; Translations: [CONTACT W/SHARP GLASS INITIAL ENC] Onset: 08-14-2022 Episodic Essential hypertension (13 sources) Hypertensive disorder; Translations: [Unspecified essential hypertension] Onset: 02-06-2024 04-13-2024 Chronic Immunizations and screening for infectious disease (1 source) Encounter for immunization; Translations: [ENCOUNTER FOR IMMUNIZATION] Onset: 08-14-2022 Episodic Open wounds of extremities (4 sources) Laceration without foreign body of left thumb without damage to nail, initial encounter; Translations: [LAC NO FB LT THUMB NO DMG NAIL INIT] Onset: 08-12-2022 Episodic Other aftercare (1 source) 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; 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] Onset: 08-14-2022 Episodic Other aftercare (1 source) Other jail (current) drug therapy; Translations: [OTH GROUP HOME CURRENT DRUG THERAPY] Onset: 08-14-2022 Episodic Other connective tissue disease (10 sources) H/O: arthritis; Translations: [Personal history of arthritis] Episodic Other connective tissue disease (1 source) Achilles tendinitis, left leg Episodic Other connective tissue disease (1 source) Calcaneal spur, left foot Episodic Other ear and sense organ disorders (1 source) Unspecified acute noninfective otitis externa, right ear Episodic Other nervous system disorders (9 sources) Carpal tunnel syndrome; Translations: [Carpal tunnel syndrome] Chronic Other nervous system disorders (2 sources) Carpal tunnel syndrome of right wrist; Translations: [Carpal tunnel syndrome, right upper limb] Onset: 02-06-2024 02-06-2024 Chronic Other nervous system disorders (10 sources) Hypesthesia; Translations: [Disturbance of skin sensation] Episodic Other nervous system disorders (10 sources) Numbness and tingling sensation of skin; Translations: [Disturbance of skin sensation] Episodic Other non-traumatic joint disorders (1 source) Pain in left ankle and joints of left foot Episodic Other nutritional; endocrine; and metabolic disorders (7 sources) Obesity; Translations: [Obesity, unspecified] 02-26-2021 Chronic Other nutritional; endocrine; and metabolic disorders (4 sources) Body mass index 40+ - severely obese; Translations: [Body mass index (BMI) 40.0-44.9, adult] Onset: 04-13-2024 04-13-2024 Chronic Other nutritional; endocrine; and metabolic disorders (2 sources) Body mass index (BMI) 40.0-44.9, adult; Translations: [Body mass index (BMI) 40.0-44.9, adult (Multi)] Onset: 04-13-2024 Chronic Other upper respiratory infections (2 sources) Acute pharyngitis, unspecified; Translations: [Acute sinusitis, unspecified] Episodic Otitis media and related conditions (1 source) Otitis media, unspecified, right ear Episodic Residual codes; unclassified (3 sources) Hypersomnia; Translations: [Hypersomnia, unspecified] Onset: 02-14-2025 02-14-2025 Chronic Residual codes; unclassified (2 sources) Hypersomnia, unspecified; Translations: [Hypersomnia, unspecified] Onset: 02-14-2025 Chronic Residual codes; unclassified (10 sources) Symptom of head and neck region; Translations: [Other general symptoms] Episodic Residual codes; unclassified (1 source) Tobacco user; Translations: [Tobacco use] 02-26-2021 Episodic Unclassified (1 source) Pain in right shoulder / M25.511(ICD-9) Onset: 07-30-2018 Unclassified (2 sources) Complete rotatr-cuff tear/ruptr of r shoulder, not trauma / M75.121(ICD-9) Onset: 07-30-2018 Unclassified (1 source) Complete rotatr-cuff tear/ruptr of left shoulder, not trauma / M75.122(ICD-9) Onset: 01-12-2018 Unclassified (1 source) Impingement syndrome of left shoulder / M75.42(ICD-9) Onset: 01-12-2018 Unclassified (1 source) Pain in left shoulder / M25.512(ICD-9) Onset: 01-12-2018 Unclassified (2 sources) Impingement syndrome of right shoulder / M75.41(ICD-9) Onset: 10-27-2017 Unclassified (3 sources) CONTACT W/AND (SUSP) EXPOS COVID-19; Translations: [CONTACT W/AND (SUSP) EXPOS COVID-19] Onset: 07-20-2022 Unclassified (1 source) Pain in left ankle and joints of left foot; Translations: [Pain in left ankle and joints of left foot] Onset: 05-12-2023 Past or Other Problems Problem Classification Problem Date Documented Da te Episodic/Chronic Blindness and vision defects (4 sources) Disorder of vision; Translations: [History of Vision problems] Episodic Coronary atherosclerosis and other heart disease (11 sources) Patient post percutaneous transluminal coronary angioplasty; Translations: [Percutaneous transluminal coronary angioplasty status] Onset: 02-06-2024 04-13-2024 Episodic Other connective tissue disease (6 sources) Nontraumatic complete rupture of rotator cuff of right shoulder; Translations: [Complete rupture of rotator cuff] Resolved: 04-02-2022 Episodic Other connective tissue disease (4 sources) Nontraumatic complete rupture of rotator cuff of right shoulder; Translations: [Nontraumatic complete tear of right rotator cuff] Other lower respiratory disease (2 sources) Snoring; Translations: [Snoring] Onset: 04-13-2024 04-13-2024 Episodic Other lower respiratory disease (1 source) Snoring; Translations: [Snoring] Onset: 04-13-2024 Episodic Other nervous system disorders (4 sources) Deficient knowledge ; Translations: [Deficient knowledge of shoulder surgery] Episodic Other nervous system disorders (8 sources) Postoperative pain ; Translations: [Other acute postoperative pain] Resolved: 04-02-2022 Episodic Other non-traumatic joint disorders (10 sources) Shoulder joint pain; Translations: [Pain in joint, shoulder region] Resolved: 04-02-2022 Episodic Residual codes; unclassified (4 sources) History of tonsillectomy ; Translations: [History of History of tonsillectomy] Episodic Screening and history of mental health and substance abuse codes (12 sources) Ex-smoker; Translations: [Personal history of tobacco use] Onset: 08-14-2022 04-13-2024 Episodic Sprains and strains (10 sources) Sprain of shoulder rotator cuff; Translations: [Rotator cuff (capsule) sprain] Resolved: 04-02-2022 Episodic Unclassified (1 source) Complete rotatr-cuff tear/ruptr of r shoulder, not trauma; Translations: [Complete rotatr-cuff tear/ruptr of r shoulder, not trauma] Onset: 07-30-2018 Unclassified (1 source) Impingement syndrome of right shoulder; Translations: [Impingement syndrome of right shoulder] Onset: 10-27-2017 Unclassified (6 sources) Healthcare knowledge finding; Translations: [Deficient knowledge of shoulder surgery] Resolved: 04-02-2022 Unclassified (1 source) CONTACT W/AND (SUSP) EXPOS COVID-19; Translations: [CONTACT W/AND (SUSP) EXPOS COVID-19] Onset: 03-18-2022 NEGATED: Highlighted row has not occurred!Residual codes; unclassified (18 sources) Disease Episodic Results Test Name Value Interpretation Reference Range Facility XR ankle LT min 3V*on 2022 XR ankle LT min 3V* [facility] Other XR ankle LT min 3V* [facility] Other XR ankle LT min 3V* [address] [place] [address] [employer] Other XR ankle LT min 3V* [place] [address] [employer] Other XR ankle LT min 3V* XRay Report [facility] Other XR ankle LT min 3V* Signed [facility] Other XR ankle LT min 3V* Patient: Dionicio Nunez MR#: [id number] [facility] Other XR ankle LT min 3V* 2 [employer] Other XR ankle LT min 3V* : 1965 Acct:[id number] [employer] Other XR ankle LT min 3V* Age/Sex: 57 / F ADM Date: 05/12/23 [facility] Other XR ankle LT min 3V* Loc: XDUCLY Room: Type: [facility] [employer] Other XR ankle LT min 3V* Attending Dr: Domenica Ramos CLINICAL NURSING COORDINATOR-C [facility] Other XR ankle LT min 3V* Copies to: SOMMER Sampson [facility] Other XR ankle LT min 3V* Ordering Provider: SOMMER Sampson [facility] Other XR ankle LT min 3V* Date of Service: 05/12/23 [facility] Other XR ankle LT min 3V* XR/XR ankle LT min 3V*: LEFT ANKLE PAIN [facility] Other XR ankle LT min 3V* LEFT ANKLE - 3 views [facility] Other XR ankle LT min 3V* CLINICAL DATA: Left ankle injury a week ago with posterior medial pain and tingling. [facility] Other XR ankle LT min 3V* COMPARISON: None [facility] Other XR ankle LT min 3V* AP, lateral and oblique views were obtained. There is no evidence of fracture or dislocation. The [employer] Other XR ankle LT min 3V* talar dome is intact. Enthesophyte is present at the distal Achilles tendon. There is mild diffuse [employer] Other XR ankle LT min 3V* soft tissue swelling. [employer] Other XR ankle LT min 3V* XR/XR ankle LT min 3V* [facility] Other XR ankle LT min 3V* IMPRESSION: [facility] Other XR ankle LT min 3V* NO ACUTE BONY INJURY. [employer] Other XR ankle LT min 3V* Impression dictated by: Mamta Ramos M.D.05/12/2023 11:14 AM [facility] Other XR ankle LT min 3V* Dictation Location: [place] [address] [employer] Other XR ankle LT min 3V* Transcribed By: DAYSI 05/12/23 1116 [facility] Other XR ankle LT min 3V* Dictated By: Mamta Ramos MD 05/12/23 1111 [facility] Other XR ankle LT min 3V* Signed By: [facility] Other XR ankle LT min 3V* 05/12/23 1117 [facility] Other XR ankle LT min 3V* [facility] [place] [address] [place] [address] XRay Report Signed Patient: Dionicio Nunez MR#: [id number] 2 : 1965 Acct:[id number] Age/Sex: 57 / F ADM Date: 05/12/23 Loc: XDUCLY Room: Type: [facility] Attending Dr: Domenica NOVOA Copies to: SOMMER Sampson Ordering Provider: SOMMER Sampson Date of Service: 05/12/23 XR/XR ankle LT min 3V*: LEFT ANKLE PAIN LEFT ANKLE - 3 views CLINICAL DATA: Left ankle injury a week ago with posterior medial pain and tingling. COMPARISON: None AP, lateral and oblique views were obtained. There is no evidence of fracture or dislocation. The talar dome is intact. Enthesophyte is present at the distal Achilles tendon. There is mild diffuse soft tissue swelling. XR/XR ankle LT min 3V* IMPRESSION: NO ACUTE BONY INJURY. Impression dictated by: Mamta Ramos M.D.05/12/2023 11:14 AM Dictation Location: [facility] Transcribed By: DAYSI 05/12/231113 Dictated By: Mamta Ramos MD 05/12/231112 Signed By: 05/12/23 1114 Normal [facility] Quick Strepon 01-25-2023 S. pyogenes Org specific cx Ql (Throat) Negative [facility] Other [employer] Other Office Visit (Cardiology)on 04-02-2022 Follow-up visit Diagnoses/Problems Assessed Coronary artery disease involving [place] coronary artery of [place] heart without angina pectoris (414.01) (I25.10) HLD (hyperlipidemia) (272.4) (E78.5) HTN (hypertension) (401.9) (I10) S/P PTCA (percutaneous transluminal coronary angioplasty) (V45.82) (Z98.61) Class 2 obesity with body mass index (BMI) of 39.0 to 39.9 in adult (278.00,V85.39) (E66.9,Z68.39) Former smoker (V15.82) (Z87.891) Orders Class 2 obesity with body mass index (BMI) of 39.0 to 39.9 in adult Healthy Weight Tips; Status:Complete - Retrospective Authorization; Done: 02Apr2022 Health Maintenance Renew: Aspirin EC 81 MG Oral Tablet Delayed Release; TAKE 1 TABLET DAILY DIRECTED HLD (hyperlipidemia) Renew: Atorvastatin Calcium 80 MG Oral Tablet; TAKE 1 TABLET Bedtime SocHx: Former smoker Tobacco Use Screening; Status:Complete; Done: 02Apr2022 Patient Instructions By signing my name below, I, I, Anuja Moraes RN, am scribing for and in the presence of, ,Scribe, attest that this documentation has been prepared under the direction and in the presence of Dr. Gretchen Person, . Please bring all medicines, vitamins, and herbal supplements with you when you come to the office. Prescriptions will not be filled unless you are compliant with your follow up appointments or have a follow up appointment scheduled as per instruction of your physician. Refills should be requested at the time of your visit. Follow up in 1 year. Chief Complaint DIONICIO NUNEZ is being seen for a 6 month follow-up of. 56-year-old female returns for 6-month follow-up and she is doing well she has no cardiovascular complaints, angina or nitrate usage or hospitalizations. She did have COVID illness 2 weeks ago and is recovered from this she was treated as an outpatient sounded like she had minimal symptoms other than upper respiratory complaints. She sustained anterior [place] in January 2021 with primary revascularization of the LAD with normal left ventricular function. She remains moderately overweight but otherwise symptom-free and is active and remains on appropriate guideline directed medical therapies Recommendations: She can discontinue Brilinta, she is cleared to proceed with tooth extraction preferably on aspirin therapy, we recommend dietary discretion weight loss and exercise and will follow-up in 1 year Surgical History Problems History of Cardiac catheterization History of Knee arthroscopy History of Meniscectomy History of Percutaneous transluminal coronary angioplasty History of Rotator cuff repair History of Shoulder surgery Past Medical History Problems History of Deficient knowledge of shoulder surgery History of Eye, ear, nose, and throat symptom (780.99) (R68.89) History of arthritis (V13.4) (Z87.39) History of tonsillectomy (V45.89) (Z90.89) History of Hypesthesia (782.0) (R20.1) History of Nontraumatic complete tear of right rotator cuff (727.61) (M75.121) History of Numbness and tingling (782.0) (R20.0,R20.2) History of Pain, joint, shoulder (719.41) (M25.519) History of Post-op pain (338.18) (G89.18) History of Rotator cuff sprain (840.4) (S43.429A) History of Vision problems (V41.0) (H54.7) Current Meds Medication NameInstruction Aspirin EC 81 MG Oral Tablet Delayed ReleaseTAKE 1 TABLET DAILY DIRECTED. Atorvastatin Calcium 80 MG Oral TabletTAKE 1 TABLET Bedtime Brilinta 90 MG Oral TabletTAKE 1 TABLET Twice daily buPROPion HCl ER (XL) 300 MG Oral Tablet Extended Release 24 HourTAKE 1 TABLET DAILY DIRECTED. Carvedilol 6.25 MG Oral Tablettake 1 tablet by mouth twice a day Lisinopril 5 MG Oral TabletTAKE 1 TABLET Daily Nitroglycerin 0.4 MG [address] Tablet SublingualPL[address] 1 TABLET UNDER YOUR TONGUE EVERY 5 MINUTES NEEDED FOR CHEST PAIN FOR 3 DOSES ONLY. IF NO RELIEF, CALL 911 Pantoprazole Sodium 40 MG Oral Tablet Delayed ReleaseTAKE ONE TABLET ONCE DAILY Patient did not bring medication list or bottles. Updated verbally with patient Allergies Medication No Known Drug Allergies Recorded By: Gardenia Venegas MA; 11/18/2019 3:02:42 PM Social History Problems Daily caffeine consumption 1 cup of coffee daily. 1-2 cans of diet pepsi daily Former smoker (V15.82) (Z87.891) No alcohol use No illicit drug use Review of Systems Constitutional: not feeling tired. Cardiovascular: no intermittent leg claudication and as noted in HPI. Respiratory: shortness of breath, but no cough. Gastrointestinal: no change in bowel habits and no blood in stools. Integumentary: no skin rashes. Neurological: no seizures and no frequent falls. All other systems have been reviewed and are negative for complaint. Vitals Vital Signs Recorded: 02Apr2022 11:35AM Heart Rate68, L Radial Ywttjysd316, LUE, Sitting Heldpzlgm49, LUE, Sitting Height5 ft 4 in Xkvfpv175 lb BMI Ycrfliqyys70.48 kg/m2 BSA Calculated2.08 Tobacco Useb) No PHQ-2 #1. Over the last 2 weeks have you felt best (more content not included)... Normal [facility] Tobacco Screening.on 022 Adult depression screening assessment No [employer] [employer] 250 DO Work Phone: Tobacco use status CPHS b) No -[facility] [employer] 250 DO Work Phone: Covid-19 PCR ([facility]on 03-01 SARS-CoV-2 (COVID-19) RNA SHAYE+probe Ql (Unsp spec) Not detected Normal NOT DETECTED [facility] Comment on above: Result Comment: This test is not yet approved or cleared by the [place] FDA. When there are no FDA-approved or cleared tests available, and other criteria are met, FDA can make tests available under an emergency access mechanism called an Emergency Use Authorization (EUA). The EUA for this test is supported by the [place] of Health and Human Service's (HHS's) declaration that circumstances exist to justify the emergency use of in vitro diagnostics for the detection and/or diagnosis of the virus that causes COVID-19. This EUA will remain in effect (meaning this test can be used) for the duration of the COVID-19 declaration justifying emergency of IVDs, unless it is terminated or revoked by FDA (after which the test may no longer be used). When diagnostic testing is negative, the possibility of a false negative should be considered in the context of a patient's recent exposures and the presence of clinical signs and symptoms consistent with SARS-CoV-2. Performed By: #### C [facility] #### [facility] [address], [place] [address] Dr. Vanesa Frazier Office Visit (Cardiology)on 07-31-2021 Follow-up visit Diagnoses/Problems Assessed Coronary artery disease involving [place] coronary artery of [place] heart without angina pectoris (414.01) (I25.10) S/P PTCA (percutaneous transluminal coronary angioplasty) (V45.82) (Z98.61) HLD (hyperlipidemia) (272.4) (E78.5) HTN (hypertension) (401.9) (I10) Class 2 obesity with body mass index (BMI) of 39.0 to 39.9 in adult (278.00,V85.39) (E66.9,Z68.39) Orders Class 2 obesity with body mass index (BMI) of 39.0 to 39.9 in adult, HTN (hypertension) Healthy Weight Tips; Status:Complete - Retrospective Authorization; Done: 31Jul2021 Patient Instructions By signing my name below, I, Vy Nash LPN ,Andres, attest that this documentation has been prepared under the direction and in the presence of Dr. Gretchen Person DO. All medical record entries made by the Fidencioibe were at my direction and personally dictated by me. I have reviewed the chart and agree that the record accurately reflects my personal performance of the history, physical exam, discussion and plan. Please bring all medicines, vitamins, and herbal supplements with you when you come to the office. Prescriptions will not be filled unless you are compliant with your follow up appointments or have a follow up appointment scheduled as per instruction of your physician. Refills should be requested at the time of your visit. Follow up in 6 months Chief Complaint DOINICIO NUNEZ is being seen for a 4 month follow-up of. Patient is 55-year-old female who returns for 6-month follow-up and doing well. She had a anterior WV in January of this year underwent PCI of the LAD has normal left ventricular function. Her only comorbidity currently is hypertension and obesity. She has no cardiovascular complaints, nitrate usage. She is finishing up cardiac rehab currently. She is compliant with current medical therapies we have counseled her on dietary discretion and weight loss Recommendations, follow-up in 6 months on same therapies Surgical History Problems History of Cardiac catheterization History of Knee arthroscopy History of Meniscectomy History of Percutaneous transluminal coronary angioplasty History of Rotator cuff repair History of Shoulder surgery Past Medical History Problems History of Eye, ear, nose, and throat symptom (780.99) (R68.89) History of arthritis (V13.4) (Z87.39) History of tonsillectomy (V45.89) (Z90.89) History of Hypesthesia (782.0) (R20.1) History of Numbness and tingling (782.0) (R20.0,R20.2) History of Vision problems (V41.0) (H54.7) Current Meds Medication NameInstruction Aspirin EC 81 MG Oral Tablet Delayed ReleaseTAKE 1 TABLET DAILY DIRECTED. Atorvastatin Calcium 80 MG Oral TabletTAKE ONE TABLET BY MOUTH IN THE EVENING FOR 30 DAYS Brilinta 90 MG Oral TabletTAKE ONE TABLET BY MOUTH TWICE A DAY buPROPion HCl ER (XL) 300 MG Oral Tablet Extended Release 24 HourTAKE 1 TABLET DAILY DIRECTED. Carvedilol 6.25 MG Oral TabletTAKE ONE TABLET BY MOUTH TWICE A DAY WITH MEALS FOR 30 DAYS Lisinopril 5 MG Oral TabletTAKE ONE TABLET BY MOUTH DAILY FOR 30 DAYS Nitroglycerin 0.4 [address] Tablet SublingualPL[address] 1 TABLET UNDER YOUR TONGUE EVERY 5 MINUTES NEEDED FOR CHEST PAIN FOR 3 DOSES ONLY. IF NO RELIEF, CALL 911 Pantoprazole Sodium 40 MG Oral Tablet Delayed ReleaseTAKE ONE TABLET ONCE DAILY Allergies Medication No Known Drug Allergies Recorded By: Gardenia Venegas MA; 11/18/2019 3:02:42 PM Social History Problems Daily caffeine consumption 1 cup of coffee daily. 1-2 cans of diet pepsi daily Former smoker (V15.82) (Z87.891) No alcohol use No illicit drug use Review of Systems Constitutional: not feeling tired. Cardiovascular: no intermittent leg claudication and as noted in HPI. Respiratory: shortness of breath, but no cough. Gastrointestinal: no change in bowel habits and no blood in stools. Integumentary: no skin rashes. Neurological: no seizures and no frequent falls. All other systems have been reviewed and are negative for complaint. Vitals Vital Signs Recorded: [id number] 01:50PM Heart Rate66, L Brachial Artery Rsmqblqr735, LUE, Sitting Mrqypqryh77, LUE, Sitting Height5 ft 4 in Wwehjt762 lb BMI Fmdjthtqok12.31 kg/m2 BSA Calculated2.07 Tobacco Useb) No Fall Screeningc) Not medically indicated Signatures Electronically signed by : Gretchen Person DO; Jul 31 2021 4:32PM EST (Author) Normal [employer] Tobacco Screening.on Fall risk assessment c) Not medically indicated -[facility] 250 DO Work Phone: Tobacco use status CPHS b) No [facility] 250 DO Work Phone: HCG,SERUM QUALITATIVEon 03-01 HCG,SERUM QUALITATIVE Negative Normal Negative [facility] Comment on above: Performed By: #### A PTT #### [address] [address] History and Physical - Surgi giovanna Update < 30 dayson 03-10-2020 History and Physical - Surgical Update < 30 days History & Physical Reviewed: /Lactating: Are You no (1) Are You Currently Breastfeedingno (1) I have reviewed the History and Physical dated: 22-Feb-2020 History and Physical reviewed and relevant findings noted. Patient examined to review pertinent physical findings.: No significant changes Home Medications Reviewed: no changes noted Allergies Reviewed: no changes noted This patient has been seen and discussed with the attending physician responsible for performing the procedure: yes Consent: COVID-19 Consent: COVID-19 Risk ConsentSurgeon has reviewed sales risks related to the risk of marine COVID-19 and if they contract COVID-19 what the risks are. Signatures/Attestation/C ertification: Note Completion: Attending Provider Inpatient Certification StatementObservation patient/other outpatient visits Electronic Signatures: Theo Starks) (Signed 10-Mar-2020 07:17) Authored: History & Physical Reviewed, Consent, Signatures/Attestation/C ertification Last Updated: 10-Mar-2020 07:17 by Theo Starks () References: 1. Data Referenced From History and Physical - Surgical Update < 30 days 10-Mar-2020 07:14 Normal [facility] History and Physical - Surgical Update < 30 days History & Physical Reviewed: /Lactating: Are You no Are You Currently Breastfeedingno I have reviewed the History and Physical dated: 23-Mar-2020 History and Physical reviewed and relevant findings noted. Patient examined to review pertinent physical findings.: No significant changes Home Medications Reviewed: no changes noted Allergies Reviewed: no changes noted This patient has been seen and discussed with the attending physician responsible for performing the procedure: yes Consent: COVID-19 Consent: COVID-19 Risk ConsentSurgeon has reviewed sales risks related to the risk of marine COVID-19 and if they contract COVID-19 what the risks are. Signatures/Attestation/C ertification: Note Completion: Attending Provider Inpatient Certification StatementObservation patient/other outpatient visits Electronic Signatures: Theo Starks () (Signed 10-Mar-2020 07:14) Authored: History & Physical Reviewed, Consent, Signatures/Attestation/C ertification Last Updated: 10-Mar-2020 07:14 by Theo Starks () [facility] Preop Checkliston 03-10-2020 Preop Checklist Preop Checklist: Preop Checklist: Arrival [id number] Arrival Time05:39 Procedure Typeper pt Carpal tunnel by Dr Starks to right hand Temperature C36.2 degrees C Temperature F97.1 degrees F Heart Rate68 beats per minute Respiratory Rate16 breath per minute Blood Pressure Fhzghbof514 mm/Hg Blood Pressure Lnkziahon34 mm/Hg NPO [id number] 21:30 NPO Commentsip of water with routine med @ 0445 this am ID Band Onyes Allergy Bandno known allergies Consent Signedyes H&P Completepending Anesthesia Assessment Completedpending EKG PerformedEKG done at bedside in [facility] Chest X-Ray Performednot ordered HCG Urine Testserum drawn with IV start Chlorhexadine Bath Givennot applicable Nasal Antiseptic Appliednot applicable Hair Washednot applicable Soap and water bath with hair shampoo the night before surgerynot applicable Hat placed on prior to transportnot applicable SCD's Appliednot applicable TYRA Hose Appliednot ordered Denturesnot applicable Prostheticsnot applicable Hearing Aidsnot applicable Valuables Securednot applicable Glasses / Contactspt wearing glasses to holding room Bowel Prepno Othermetal/implants: anchors in both shoulders ; last cigarette this am; denies alcohol or illicit drug use Cardiovascular Assessment: Apicaldeferred to anesthesia Radial Pulsesdeferred to anesthesia Pedal Pulsesdeferred to anesthesia Extremitiesdeferred to anesthesia Central Venous Access Devicenot applicable in ACC Respiratory Assessment: Respirationsdeferred to anesthesia Air Exchangedeferred to anesthesia Breath Soundsdeferred to anesthesia Neurological Assessment: Level of Consciousnessalert, oriented Mobilitymoves all extremities Able to Express Selfyes Age Appropriateyes Emotional Statuscalm Preop Education: Surgical Site Infection Preventionno Pain Scales and Managementyes Language / Communication: Language / CommunicationEnglish Electronic Signatures: Franny Chao (RN) (Signed 10-Mar-2020 06:08) Authored: Preop Checklist Last Updated: 10-Mar-2020 06:08 by Franny Chao (LUCA) Normal [facility] CORONAVIRUS 2019, SCREEN ASY MPTOMATICon 03-08-2020 CORONAVIRUS 2019,PCR NOT DETECTED Normal Not Detected [facility] Comment on above: Result Comment: . This assay is designed to detect SARS-CoV-2 based on replication of specific regions of the RNA from the SARS-CoV-2 virus. A Not Detected result does not preclude 2019-nCoV infection since the adequacy of sample collection and/or low viral burden may result in presence of viral nucleic acids below the clinical sensitivity of this test method. Fact sheet for providers: https://www.fda.gov/media/526721/download Fact sheet for patients: https://www.fda.gov/media/305769/download This test has received FDA Emergency Use Authorization [EUA] and has been verified by [facility] ([facility]). This test is only authorized for the duration of time that circumstances exist to justify the authorization of the emergency use of in vitro diagnostic tests for the detection of SARS-CoV-2 virus and/or diagnosis of COVID-19 infection under section 564(b)(1) of the Act, 21 U.S.C. 360bbb-3(b)(1), unless the authorization is terminated or revoked sooner. [facility] is certified under CLIA-88 as qualified to perform high complexity testing. Testing is performed in the [facility] laboratories located at [address] [place] [address]. Performed By: #### C OVSC #### [facility] [address] [place] [address] CORONAVIRUS 2019, SCREEN ASY MPTOMATICon 03-07-2020 Lab Specimen Source Nasal, Nasopharyngeal Normal [facility] Comment on above: Performed By: #### C OVSC #### [facility] [address] [place] [address] Otheron 11-18-2019 XR Shoulder 2 views Interpreted by: JAZMIN BUSH11/18/19 16:01MRN: [id number] Name: DIONICIO NUNEZ STUDY:SHOULDER, CMPLT, MIN 2 VIEWS; Right; 11/18/2019 3:08 pm INDICATION:pain. ORDERING CLINICIAN:JAZMIN BUSH FINDINGS:Two views right shoulder arch view and AP view xutr-vsudtqrjiev-qfojdcx antonio glenohumeral joint with bicep button tenodesisfixation in good position and good alignment, no fracture nodislocation noted Electronically signed by: JAZMIN BUSH 11/18/19 16:01 Normal [facility] Work Phone: SHOULDER, CMPLT, MIN 2 VIEWS on 11-18-2019 SHOULDER, CMPLT, MIN 2 VIEWS Patient Name: DIONICIO NUNEZ STUDY: SHOULDER, CMPLT, MIN 2 VIEWS; Right; 11/18/2019 3:08 pm INDICATION: pain. ACCESSION NUMBER(S): [id number] ORDERING CLINICIAN: JAZMIN BUSH FINDINGS: Two views right shoulder arch view and AP view well-aligned well-positioned glenohumeral joint with bicep button tenodesis fixation in good position and good alignment, no fracture no dislocation noted Electronically signed by: JAZMIN BUSH MD Normal [facility] Surgical Pathologyon 10-26-2019 [facility] Name DIONICIO NUNEZBryanna Pathologist: TONY LOVE MD Date of Procedure: 10/26/2019 Date Received: 10/26/2019 Date Reported 11/02/2019 Submitting Physician: JAZMIN BUSH M.D. Location: [facility] Copy To/Referring/Attending: ANAID BAEZA DO Other External # FINAL DIAGNOSIS A. RIGHT BICEPS, TENDON: --DENSE FIBROUS TISSUE AND FIBROCARTILAGE WITH DEGENERATIVE CHANGES Interpretation performed at: [facility] Department of Pathology [address] [place], [place] [id number] Electronically Signed Out By TONY OLVE MD/ISABELLA By the signature on this report, the individual or group listed as making the Final Interpretation/Diagnosis certifies that they have reviewed this case. Clinical History: RIGHT SHOULDER IMPINGEMENT, ROTATOR CUFF TEAR, BICEPS TEAR Specimens Submitted As: A: RIGHT BICEPS, TENDON Gross Description: Received in formalin, labeled with the patient's name, hospital number, and Right Biceps Tendon , is one pink to pale yellow, cylindrical, rubbery tissue fragment, measuring 6.8 x 1.1 x 0.5 cm. The fragment is serially sectioned. Records Clerk sections are submitted in one cassette. TAS tas/10/26/2019 Normal [facility] HCG, Serum - Qualitativeon 0 10-26-2019 HCG ( test) Ql Negative Negative -[facility] Work Phone: HCG,SERUM QUALITATIVEon 10-03 HCG,SERUM QUALITATIVE Negative Normal Negative [facility] Comment on above: Performed By: #### H CGS #### [address] [address] History and Physical - Surgi giovanna Update < 30 dayson 10-26-2019 History and Physical - Surgical Update < 30 days History & Physical Reviewed: /Lactating: Are You no Are You Currently Breastfeedingno I have reviewed the History and Physical dated: 25-Oct-2019 History and Physical reviewed and relevant findings noted. Patient examined to review pertinent physical findings.: No significant changes Home Medications Reviewed: no changes noted Allergies Reviewed: no changes noted This patient has been seen and discussed with the attending physician responsible for performing the procedure: yes Signatures/Attestation/C ertification: Note Completion: Attending Provider Inpatient Certification StatementObservation patient/other outpatient visits Electronic Signatures: Jazmin Bush) (Signed 26-Oct-2019 06:51) Authored: History & Physical Reviewed, Signatures/Attestation/C ertification Last Updated: 26-Oct-2019 06:51 by Jazmin Bush) Normal [facility] Otheron 10-26-2019 Name DIONICIO NUNEZ Pathologist: TONY LOVE, MDDate of Procedure: 10/26/2019Date Received: 10/26/2019Date Reported 11/02/2019Submitting Physician: JAZMIN BUSH M.D.Location: [facility] Copy To/Referring/Attending:Nava BAEZA, Other External # FINAL DIAGNOSISA. RIGHT BICEPS, TENDON: --DENSE FIBROUS TISSUE AND FIBROCARTILAGE WITH DEGENERATIVE CHANGESInterpretation performed at:[facility] [place] [phone]: Electronically Signed Out By TONY LOVE MD/[facility] the signature on this report, the individual or group listed as making theFinal Interpretation/Diagnosis certifies that they have reviewed this case. Clinical History:RIGHT SHOULDER IMPINGEMENT, ROTATOR CUFF TEAR, BICEPS TEAR Specimens Submitted As:A: RIGHT BICEPS, TENDON Gross Description:Received in formalin, labeled with the patient's name, hospital number, and Right Biceps Tendon , is one pink to pale yellow, cylindrical, rubbery tissuefragment, measuring 6.8 x 1.1 x 0.5 cm. The fragment is serially sectioned.Records Clerk sections are submitted in one cassette.Mary Ellen/ 0 [facility] Work Phone: Preop Checkliston 10-26-2019 Preop Checklist Preop Checklist: Preop Checklist: Arrival [id number] Arrival Time05:40 Procedure Typeshoulder rotator cuff repair per pt NPO [id number] 23:00 ID Band Onyes Allergy Bandno known allergies Consent Signedpending H&P Completepending Anesthesia Assessment Completedpending EKG Performedsee results tab Chest X-Ray Performedsee results tab HCG Urine Testblood drawn Chlorhexadine Bath Givennot applicable Nasal Antiseptic Appliednot applicable Hair Washednot applicable Soap and water bath with hair shampoo the night before surgerynot applicable Hat placed on prior to transportnot applicable SCD's Appliednot applicable TYRA Hose Appliedyes Denturesnot applicable Prostheticsnot applicable Hearing Aidsnot applicable Valuables Securedsent with family Glasses / Contactsnot applicable Bowel Prepno Neurological Assessment: Level of Consciousnessalert, oriented Mobilitymoves all extremities Able to Express Selfyes Age Appropriateyes Emotional Statuscalm Preop Education: Surgical Site Infection Preventionyes Pain Scales and Managementyes Language / Communication: Language / CommunicationEnglish Electronic Signatures: Gaby Saldaña (RN) (Signed 26-Oct-2019 05:56) Authored: Preop Checklist Last Updated: 26-Oct-2019 05:56 by Gaby Saldaña (RN) Normal [facility] History and Physicalon 10-25 History and Physical History of Present Illness: Admission Reason: Right shoulder pain HPI: DIONICIO NUNEZ is a 54 year old Female Patient seen and evaluated for right shoulder pain HPI patient with right shoulder pain for almost 5 full years. She has been getting by utilizing conservative measures which have helped her up till this time. MRI has shown rotator cuff tearing after risks benefits alternatives were discussed patient elects to proceed with right shoulder arthroscopy which will be performed to 19/01/2020 at [facility]. Past medical hx osteoarthritis and acid reflux past surgical hx left shoulder arthroscopy Social hx unemployed, , denies substance abuse, 1-2 all call at beverages per year, does smoke cigarettes family hx osteoarthritis ROS noncontributory PE head normocephalic atraumatic wears corrective lenses heart regular rate and rhythm no murmurs rubs or gallops appreciated lungs clear to auscultation bilaterally abd obese soft nontender normoactive bowel sounds 4 quadrants extremity right shoulder forward flexion to 140, abduction of 80, external rotation of 50, internal rotation posterior iliac crest impression right shoulder impingement and rotator cuff tendon tearing plan right shoulder arthroscopy subacromial decompression rotator cuff repair possible long head biceps tenodesis Patient's past medical history, allergies, surgical history, review of systems, family history, social history, medication list are all reviewed and documented on the chart. Allergies: No Known Allergies: Medications Prior to Admission: Admission Medication Reconciliation has not been completed for this patient. Signatures/Attestation/C ertification: Note Completion: Attending Provider Inpatient Certification StatementObservation patient/other outpatient visits Electronic Signatures: Jazmin Morrow (MARLEY) (Signed 25-Oct-2019 10:48) Authored: History of Present Illness, Allergies, Medications Prior to Admission, Objective, Signatures/Attestation/C ertification Last Updated: 25-Oct-2019 10:48 by Jazmin Morrow (MARLEY) [facility] Patient Profile - Preop v2on 10-22-2019 Patient Profile - Preop v2 Profile: Initial Info: How to be AddressedLori Spoken Language PreferredEnglish Source of Informationpatient Are you currently using the Personal Electronic Health Record or [employer] Instructions Givenappropriate clothing, center location, bring responsible adult as the cdl company driver (procedure may be cancelled if no cdl company driver), remove jewerly/piercings, bring glasses/contacts case Stated Reason for AdmissionRight rotator cuff surgery Primary Contact Name and NumberLg Bermudez [phone] Patient Belongingsremains with patient Patient Belongings Remaining with Patientclothing Medications Brought to Hospitalno General Health: Weight in kg102 kilogram(s) Weight in xfl124 pound(s) Weight Methodstated Height in cm162.5 centimeter(s) Height in feet5 feet Height in inches4 inch(es) Height Methodstated BMI (kg/m2)38.627 square meter Patient or Family Member Reaction to Anesthesiano previous reaction; no previous family member reaction; left shoulder - metals Left shoulder rotator cuff repair with hardware Tonsillectomy Arthroscopy of right knee tubal ligation Blood Avoidance/Restrictionsno ne Previous Transfusion Reactionno Health Mgmt: Symptoms/Conditions Managed at Homegastrointestinal; musculoskeletal; obstetric/gynecologic; peripheral/neurovascular ; respiratory Are You Currently Breastfeedingno Gastrointestinal Symptoms/Conditionsreflu x/heartburn Musculoskeletal Symptoms/Conditionsosteo arthritis Musculoskeletal Symptoms/Conditions Commenttorn right rotator cuff VICE CHAIR Symptoms/Conditions CommentLMP - 6 months ago Peripheral Neurovascular Symptoms/Conditionsvaric osities Respiratory Symptoms/Conditionssleep disordered breathing; seasonal allergies Respiratory Symptoms/Conditions Commentsnores Barriers to Managing Healthnone Are You no Relationship/Environ: Resource/Environmental Concernsnone Services Anticipated at Transitionnone Lives Withspouse Living Arrangementshouse [facility]ated [facility] Substance: Current or Former Substance Use never: e-Cigarette/Vaping, Street Drugs YES: Cigarette/Tobacco, Alcohol Tobacco Cessation Education (provide if tobacco use within the last 12 mos)yes Other Tobacco Use Comments1 PPD smoker Alcohol Use Statuscurrent alcohol Alcohol Amount1-2 drinks Alcohol Frequencymonthly or less Alcohol Typewine Problems Related to Alcohol Useno Risk Screens: Advance Directive/DNRno Advance Directive Mental Healthnot applicable During the past month, have you often been bothered by feeling down, depressed or hopelessno During the past month, have you often had little interest or pleasure in doing thingsno Have you had any thoughts of harming yourselfno Have you had any thoughts of harming anyone elseno Are you or have you been threatened or abused physically,emotionally or sexually abused by anyoneno Do you feel UNSAFE going back to the place you are livingno Patient is Able to be Assessed for Learningyes Factors Influencing Readiness to Learninterest in learning; motivation to learn Factors that Impact Ability to Learnnone Devices/Methods Used to Communicateglasses Learning Preferencesskill demonstration Cultural Considerationsnone Developmental Considerationsnone Bahai Considerationsnone Other learner availableno Falls RiskPatient location auto qualifies him/her for HIGH RISK. Are there any cultural, spiritual, buddhism practices/values/needs that are important for us to knowno Pain Scalenumerical 0-10 Pain Scale Educationteaching provided Current Pain Level3 = Mild Acceptable Pain Level7 = Severe Expression of Pain (nonverbal)none Lifestyle Changes/Adaptations in Response to Painno change Barriers to Reporting Painnone Chronic Painno Information Review: Allergies, Home Meds and Significant Events have been Reviewed and Verified with Patient/Familyno Electronic Signatures: Gaby Saldaña (LUCA) (Signed 26-Oct-2019 05:59) Authored: Profile, Additional Information Sangita Alfaro) (Signed 22-Oct-2019 15:51) Authored: Profile Last Updated: 26-Oct-2019 05:59 by Gaby Saldaña (LUCA) Normal [facility] APTTon 10-14-2019 aPTT Coag ([place]) [Time] 37 s Normal 28 - 38 [facility] Comment on above: Result Comment: THE APTT IS NO LONGER USED FOR MONITORING UNFRACTIONATED HEPARIN THERAPY. FOR MONITORING HEPARIN THERAPY, USE THE HEPARIN ASSAY. Performed By: #### A PTT #### [address] [address] CBC AND DIFFERENTIALon 10-14 % AUTOMATED IMMATURE GRAN 0.0 % Normal 0.0 - 0.9 [facility] Comment on above: Result Comment: Perc ent differential counts (%) should be interpreted in the context of the absolute cell counts (cells/L). Performed By: #### C BCDF #### [address] [address] Basophils (Bld) [#/Vol] 0.05 10*3/uL Normal 0.00 - 0.10 [facility] Comment on above: Performed By: #### C BCDF #### [address] [address] Basophils/100 WBC (Bld) 0.9 % Normal 0.0 - 2.0 [facility] Comment on above: Performed By: #### C BCDF #### [address] [address] Eosinophils (Bld) [#/Vol] 0.13 10*3/uL Normal 0.00 - 0.70 [facility] Comment on above: Performed By: #### C BCDF #### [address] [address] Eosinophils/100 WBC (Bld) 2.3 % Normal 0.0 - 6.0 [facility] Comment on above: Performed By: #### C BCDF #### [address] [address] Erythrocyte distribution width (RBC) [Ratio] 12.7 % Normal 11.5 - 14.5 [facility] Comment on above: Performed By: #### C BCDF #### [address] [address] Hematocrit (Bld) [Volume fraction] 46.7 % High 36.0 - 46.0 [facility] Comment on above: Performed By: #### C BCDF #### [address] [address] Hemoglobin (Bld) [Mass/Vol] 15.3 g/dL Normal 12.0 - 16.0 [facility] Comment on above: Performed By: #### C BCDF #### [address] [address] Lymphocytes (Bld) [#/Vol] 2.34 10*3/uL Normal 1.20 - 4.80 [facility] Comment on above: Performed By: #### C BCDF #### [address] [address] Lymphocytes/100 WBC (Bld) 41.5 % Normal 13.0 - 44.0 [facility] Comment on above: Performed By: #### C BCDF #### [address] [address] MCHC (RBC) [Mass/Vol] 32.8 g/dL Normal 32.0 - 36.0 [facility] Comment on above: Performed By: #### C BCDF #### [address] [address] MCV (RBC) [Entitic vol] 94 fL Normal 80 - 100 [facility] Comment on above: Performed By: #### C BCDF #### [address] [address] Monocytes (Bld) [#/Vol] 0.39 10*3/uL Normal 0.10 - 1.00 [facility] Comment on above: Performed By: #### C BCDF #### [address] [address] Monocytes/100 WBC (Bld) 6.9 % Normal 2.0 - 10.0 [facility] Comment on above: Performed By: #### C BCDF #### [address] [address] Neutrophils (Bld) [#/Vol] 2.73 10*3/uL Normal 1.20 - 7.70 [facility] Comment on above: Performed By: #### C BCDF #### [address] [address] Neutrophils/100 WBC (Bld) 48.4 % Normal 40.0 - 80.0 [facility] Comment on above: Performed By: #### C BCDF #### [address] [address] Platelets (Bld) [#/Vol] 262 10*3/uL Normal 150 - 450 [facility] Comment on above: Performed By: #### C BCDF #### [address] [address] RBC (Bld) [#/Vol] 4.99 x10E12/L Normal 4.00 - 5.20 [facility] Comment on above: Performed By: #### C BCDF #### [address] [address] WBC (Bld) [#/Vol] 5.6 10*3/uL Normal 4.4 - 11.3 [facility] Comment on above: Performed By: #### C BCDF #### [address] [address] COMPREHENSIVE PANELon 2019 Albumin [Mass/Vol] 4.3 g/dL Normal 3.4 - 5.0 [facility] Comment on above: Performed By: #### C MP #### [address] [address] ALP [Catalytic activity/Vol] 90 U/L Normal 33 - 110 [facility] Comment on above: Performed By: #### C MP #### [address] [address] ALT [Catalytic activity/Vol] 11 U/L Normal 7 - 45 [facility] Comment on above: Result Comment: Misty ents treated with Sulfasalazine may generate falsely decreased results for ALT. Performed By: #### C MP #### [address] [address] Anion gap [Moles/Vol] 12 mmol/L Normal 10 - 20 [facility] Comment on above: Performed By: #### C MP #### [address] [address] AST [Catalytic activity/Vol] 12 U/L Normal 9 - 39 [facility] Comment on above: Performed By: #### C MP #### [address] [address] Bilirubin [Mass/Vol] 0.3 mg/dL Normal 0.0 - 1.2 [facility] Comment on above: Performed By: #### C MP #### [address] [address] Calcium [Mass/Vol] 9.0 mg/dL Normal 8.6 - 10.3 [facility] Comment on above: Performed By: #### C MP #### [address] [address] Chloride [Moles/Vol] 106 mmol/L Normal 98 - 107 [facility] Comment on above: Performed By: #### C MP #### [address] [address] Creatinine [Mass/Vol] 0.90 mg/dL Normal 0.50 - 1.05 [facility] Comment on above: Performed By: #### C MP #### [address] [address] GFR- AM. >60 Normal >60 [facility] Comment on above: Result Comment: CALC ULATIONS OF ESTIMATED GFR ARE PERFORMED USING THE MDRD STUDY EQUATION FOR THE IDMS-TRACEABLE CREATININE METHODS. CLIN CHEM 2007;53:766-72 Performed By: #### C MP #### [address] [address] GFR-NON AM. >60 Normal >60 [facility] Comment on above: Performed By: #### C MP #### [address] [address] Glucose [Mass/Vol] 76 mg/dL Normal 74 - 99 [facility] Comment on above: Performed By: #### C MP #### [address] [address] HCO3 (Bld) [Moles/Vol] 28 mmol/L Normal 21 - 32 [facility] Comment on above: Performed By: #### C MP #### [address] [address] Potassium [Moles/Vol] 4.1 mmol/L Normal 3.5 - 5.3 [facility] Comment on above: Performed By: #### C MP #### [address] [address] Protein [Mass/Vol] 7.1 g/dL Normal 6.4 - 8.2 [facility] Comment on above: Performed By: #### C MP #### [address] [address] Sodium [Moles/Vol] 142 mmol/L Normal 136 - 145 [facility] Comment on above: Performed By: #### C MP #### [address] [address] Urea nitrogen [Mass/Vol] 13 mg/dL Normal 6 - 23 [facility] Comment on above: Performed By: #### C MP #### [address] [address] PT/INRon 10-14-2019 INR Coag (PPP) [Relative time] 1.0 {INR} Normal 0.9 - 1.1 [facility] Comment on above: Performed By: #### P TINR #### [address] [address] PT Coag (PPP) [Time] 10.7 s Normal 9.7 - 12.7 [facility] Comment on above: Performed By: #### P TINR #### [address] [address] UA MICROSCOPICon 10-14-2019 BACTERIA 1+ /HPF Abnormal [facility] Comment on above: Performed By: #### U AMIC #### [address] [address] MUCUS 1+ /LPF Normal [facility] Comment on above: Performed By: #### U AMIC #### [address] [address] RBC 1 /HPF Normal 0-5 [facility] Comment on above: Performed By: #### U AMIC #### [address] [address] SQUAMOUS EPITH. CELLS 11 /HPF Normal [facility] Comment on above: Performed By: #### U AMIC #### [address] [address] WBC 4 /HPF Normal 0-5 [facility] Comment on above: Performed By: #### U AMIC #### [address] [address] URINALYSISon 10-14-2019 Appearance (U) CLEAR Normal CLEAR [facility] Comment on above: Performed By: #### U A #### [address] [address] Bilirubin (U) [Mass/Vol] Negative Normal NEGATIVE [facility] Comment on above: Performed By: #### U A #### [address] [address] BLOOD Negative Normal NEGATIVE [facility] Comment on above: Performed By: #### U A #### [address] [address] Color (U) YELLOW Normal STRAW,YELLOW [facility] Comment on above: Performed By: #### U A #### [address] [address] Glucose [Mass/Vol] Negative Normal NEGATIVE [facility] Comment on above: Performed By: #### U A #### [address] [address] Ketones Ql (U) 5 (TRACE) Abnormal NEGATIVE [facility] Comment on above: Performed By: #### U A #### [address] [address] Leukocyte esterase Test strip Ql (U) MODERATE (2+) Abnormal NEGATIVE [facility] Comment on above: Performed By: #### U A #### [address] [address] Nitrite Ql (U) Negative Normal NEGATIVE [facility] Comment on above: Performed By: #### U A #### [address] [address] pH (Bld) 5.0 Normal 5.0 - 8.0 [facility] Comment on above: Performed By: #### U A #### [address] [address] Protein (U) [Mass/Vol] Negative Normal NEGATIVE [facility] Comment on above: Performed By: #### U A #### [address] [address] Specific gravity (U) [Rel density] 1.029 Normal 1.005 - 1.035 [facility] Comment on above: Performed By: #### U A #### [address] [address] Urobilinogen Qn (U) 2.0 mg/dL High 0.0 - 1.9 [facility] Comment on above: Result Comment: Due to a manufacturing issue, low positive urobilinogen results may be falsely positive. Correlate with urine bilirubin and additional clinical/laboratory findings to assess the risk of hemolytic anemia or liver disease. If clinically indicated, repeat testing with an alternate method is available by contacting the laboratory within 24 hours. . Some pigments and medications may cause a false positive urobilinogen. Performed By: #### U A #### [address] [address] Vital Signs Date Time Vital Sign Value Performing Clinician Facility 02-14-2025 [id number] Body height 162.6 cm Albaro IGLESIAS Work Phone: [facility] 02-14-2025 13:33-0400 Body mass index (BMI) [Ratio] 42.23 kg/m2 Albaro Olmedo APRN-PRATIBHA Work Phone: [facility] 02-14-2025 13:33-0400 Body weight 111.58 kg Albaro Olmedo REIMBURSEMENT SPECIALIST-SENIOR SOFTWARE SYSTEMS ENGINEER Work Phone: [facility] 02-14-2025 13:33-0400 Diastolic blood pressure 72 mm[Hg] Albaro Olmedo REIMBURSEMENT SPECIALIST-SENIOR SOFTWARE SYSTEMS ENGINEER Work Phone: [facility] 02-14-2025 13:33-0400 Heart rate 75 /min Albaro Olmedo REIMBURSEMENT SPECIALIST-SENIOR SOFTWARE SYSTEMS ENGINEER Work Phone: [facility] 02-14-2025 13:33-0400 Systolic blood pressure 114 mm[Hg] Albaro Olmedo REIMBURSEMENT SPECIALIST-SENIOR SOFTWARE SYSTEMS ENGINEER Work Phone: [facility] 04-13-2024 15:50-0400 Body height 162.6 cm Gretchen Person DO Work Phone: [facility] 04-13-2024 15:50-0400 Body mass index (BMI) [Ratio] 43.26 kg/m2 Gretchen Person DO Work Phone: [facility] 04-13-2024 15:50-0400 Body weight 114.31 kg Gretchen Person DO Work Phone: [facility] 04-13-2024 15:50-0400 Diastolic blood pressure 84 mm[Hg] Gretchen Person DO Work Phone: [facility] 04-13-2024 15:50-0400 Heart rate 60 /min Gretchen Person DO Work Phone: [facility] 04-13-2024 15:50-0400 Systolic blood pressure 132 mm[Hg] Gretchen Person DO Work Phone: [facility] 07-27-2023 10:55-0500 Body height 162.56 cm Dmoenica Ramos Other [facility] Other 07-27-2023 10:55-0500 Body mass index (BMI) [Ratio] 41.74 kg/m2 Domenica Ramos Other [facility] Other 07-27-2023 10:55-0500 Body temperature 98.6 [degF] Domenica Rachel Other [facility] Other 07-27-2023 10:55-0500 Body weight 110.32 kg Domenica Rachel Other [facility] Other 07-27-2023 10:55-0500 Diastolic blood pressure 67 mm[Hg] Domenica Rachel Other [facility] Other 07-27-2023 10:55-0500 Respiratory rate 18 /min Domenica Rachel Other [facility] Other 07-27-2023 10:55-0500 SaO2% (BldA) [Mass fraction] 95 % Domenica Rachel Other [facility] Other 07-27-2023 10:55-0500 Systolic blood pressure 108 mm[Hg] Domenica Rachel Other [facility] Other 05-12-2023 10:10-0400 Body height 162.56 cm Domenica Rachel Other [facility] Other 05-12-2023 10:10-0400 Body mass index (BMI) [Ratio] 41.71 kg/m2 Domenica Rachel Other [facility] Other 05-12-2023 10:10-0400 Body temperature 97.9 [degF] Domenica Rachel Other [facility] Other 05-12-2023 10:10-0400 Body weight 110.22 kg Domenica Rachel Other [facility] Other 05-12-2023 10:10-0400 Diastolic blood pressure 70 mm[Hg] Domenica Rachel Other [facility] Other 05-12-2023 10:10-0400 Respiratory rate 18 /min Domenica Rachel Other [facility] Other 05-12-2023 10:10-0400 SaO2% (BldA) [Mass fraction] 97 % Domenica Rachel Other [facility] Other 05-12-2023 10:10-0400 Systolic blood pressure 110 mm[Hg] Domenica Rachel Other [facility] Other 01-25-2023 10:05-0400 Body height 162.56 cm Domenica Rachel Other [facility] Other 01-25-2023 10:05-0400 Body mass index (BMI) [Ratio] 41.28 kg/m2 Domenica Rachel Other [facility] Other 01-25-2023 10:05-0400 Body temperature 97.5 [degF] Domenica Rachel Other [facility] Other 01-25-2023 10:05-0400 Body weight 109.09 kg Domenica Rachel Other [facility] Other 01-25-2023 10:05-0400 Diastolic blood pressure 65 mm[Hg] Domenica Rachel Other [facility] Other 01-25-2023 10:05-0400 Respiratory rate 18 /min Domenica Rachel Other [facility] Other 01-25-2023 10:05-0400 SaO2% (BldA) [Mass fraction] 95 % Domenica Ramos Other [facility] Other 01-25-2023 10:05-0400 Systolic blood pressure 105 mm[Hg] Domenica Ramos Other [facility] Other 04-02-2022 11:35-0400 Body height 162.56 cm Jasmina Aries Covey Work Phone: [facility] DO Work Phone: 04-02-2022 11:35-0400 Body mass index (BMI) [Ratio] 39.48 kg/m2 Jasmina Aries Covey Work Phone: [facility] DO Work Phone: 04-02-2022 11:35-0400 Body surface area Derived from formula 2.08 m2 Jasmina Aries Covey Work Phone: [facility] 250 DO Work Phone: 04-02-2022 11:35-0400 Body weight 104.33 kg Jasmina [employer] Hoy Work Phone: [facility] [address] DO Work Phone: 04-02-2022 11:35-0400 Diastolic blood pressure 72 mm[Hg] Jasmina Nanda Hoy Work Phone: [facility] [address] DO Work Phone: 04-02-2022 11:35-0400 Heart rate 68 /min Jasmina [employer] H[employer] Work Phone: [facility] DO Work Phone: 04-02-2022 11:35-0400 Systolic blood pressure 110 mm[Hg] Jasmina M Hoy Work Phone: [facility] 250 DO Work Phone: 07-31-2021 13:50-0500 Body height 162.56 cm Jasmina M Hoy Work Phone: [facility] 250 DO Work Phone: 07-31-2021 13:50-0500 Body mass index (BMI) [Ratio] 39.31 kg/m2 Jasmina M Hoy Work Phone: [facility] DO Work Phone: 07-31-2021 13:50-0500 Body surface area Derived from formula 2.07 m2 Jasmina M Hoy Work Phone: [facility] [facility] DO Work Phone: 07-31-2021 13:50-0500 Body weight 103.87 kg Jasmina M Hoy Work Phone: [facility] 250 DO Work Phone: 07-31-2021 13:50-0500 Diastolic blood pressure 73 mm[Hg] Jasmina M Hoy Work Phone: [facility] 250 DO Work Phone: 07-31-2021 13:50-0500 Heart rate 66 /min Jasmina M Hoy Work Phone: [facility] [facility] DO Work Phone: 07-31-2021 13:50-0500 Systolic blood pressure 113 mm[Hg] Jasmina M Hoy Work Phone: [facility] [facility] DO Work Phone: 11-18-2019 17:01-0400 BMI (Body Mass Index) 38.62 kg/m2 [facility] [place] Work Phone: 11-18-2019 17:01-0400 Body weight 102.06 kg Jazmin Bush [facility] [place] Work Phone: 11-18-2019 17:01-0400 BSA (Body Surface Area) 2.06 m2 Jazmin [facility] Work Phone: 11-18-2019 17:01-0400 Height 162.56 cm Jamzin Bush -[facility] Work Phone: Encounters Encounter Date Encounter Type Care Provider Facility Start: 02-14-2025 End: 02-14-2025 Office outpatient visit 25 minutes Albaro Olmedo REIMBURSEMENT SPECIALIST-SENIOR SOFTWARE SYSTEMS ENGINEER Work Phone: [facility] Comment on above: Hypersomnolence (Kaci damien Dx); Mixed hyperlipidemia; Coronary artery disease involving [place] coronary artery of [place] heart without angina pectoris; Hypertension, unspecified type; BMI 40.0-44.9, adult (Multi) Start: 02-14-2025 End: 02-14-2025 ambulatory [facility] Start: 04-13-2024 End: 04-13-2024 Office outpatient visit 25 minutes Gretchen Person DO Work Phone: [facility] Comment on above: Coronary artery dise ase involving [place] coronary artery of [place] heart without angina pectoris; Hyperlipidemia, unspecified hyperlipidemia type; Hypertension, unspecified type; S/P PTCA (percutaneous transluminal coronary angioplasty); Snoring; Former smoker; BMI 40.0-44.9, adult (Multi) Start: 04-13-2024 End: 04-13-2024 ambulatory [facility] Amb[facility] Start: 07-27-2023 End: 07-27-2023 ambulatory Domenica Ramos Other [facility] Other Start: 07-27-2023 Office outpatient vi sit 15 minutes Domenica Ramos [facility] Start: 05-12-2023 Office outpatient vi sit 15 minutes Domenica Ramos [facility] Start: 05-12-2023 End: 05-12-2023 ambulatory Domenica Ramos Facility:[facility] Start: 05-12-2023 End: 05-12-2023 ambulatory MD Jasmina Cespedes Work Phone: [facility] Work Phone: Start: 05-12-2023 End: 05-12-2023 Patient encounter procedure MD Jasmina Cespedes Work Phone: [facility] Work Phone: Start: 02-06-2023 Rx Renewal Jasmina Cespedes Work Phone: [facility] 250 DO Work Phone: Start: 01-25-2023 End: 01-25-2023 ambulatory Domenica Ramos Other [facility] [employer] Other Start: 01-25-2023 Office outpatient ne w 20 minutes Domenica Ramos [facility] Start: 08-12-2022 End: 08-12-2022 ambulatory ORI ARCHIBALD Facility:[facility] Start: 04-02-2022 Office outpatient vi sit 25 minutes Jasmina Cespedes Work Phone: [facility] [facility] DO Work Phone: Start: 03-18-2022 End: 03-18-[address] JASMINA CESPEDES Facility:[facility] Start: 02-14-2022 Rx Renewal Jasmina Cespedes Work Phone: [facility] DO Work Phone: Start: 09-01-2021 ambulatory ALBARO Castro ty:[facility] Start: 07-31-2021 Office outpatient vi sit 15 minutes Jasmina Vee Hoprashant Work Phone: [facility] 250 DO Work Phone: Start: 04-11-2020 Patient encounter procedure [facility] [place] Work Phone: Start: 03-23-2020 Patient encounter procedure Jazmin Bush [facility] [place] Work Phone: Start: 03-21-2020 Patient encounter procedure [facility] Zan[facility] Work Phone: Start: 02-24-2020 Patient encounter procedure Jazmin Bush [facility] Work Phone: Start: 02-21-2020 Patient encounter procedure Jazmin Bush [facility] [place] Work Phone: Start: 01-20-2020 Patient encounter procedure [facility] Work Phone: Start: 12-23-2019 Patient encounter procedure Jazmin Bush [facility] Work Phone: Start: 11-18-2019 Patient encounter procedure Jazmin Bush [facility] Work Phone: Start: 07-30-2018 Patient encounter procedure JAZMIN BUSH Facility:8 Start: 03-16-2018 Patient encounter procedure JAZMIN BUSH Facility:8 Start: 01-12-2018 Patient encounter procedure JAZMIN BUSH Facility:8 Start: 01-01-2018 Patient encounter procedure JAZMIN BUSH Facility:8 Start: 12-04-2017 Patient encounter procedure JAZMIN BUSH Facility:8 Start: 10-27-2017 Patient encounter procedure JAZMIN BUSH Facility:8 Procedures Date Procedure Procedure Detail Performing Clinician Start: 05-12-2023 X-ray of left ankle Jasmina Cespedes Work Phone: Start: 01-20-2020 EMG and Nerve Conduction Jazmin Bush Arthroscopy of knee Jasmina Cespedes Work Phone: Cardiac catheterization Corbin las Nanda Cespedes Work Phone: 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 Jasmina M Jaswanty Work Phone: History of tonsillectomy History of tonsillectomy Jasmina Cespedes Work Phone: Percutaneous translu bernard coronary angioplasty Jasmina M Jaswanty Work Phone: Repair of musculoten dinous cuff of shoulder Jasmina M Hoy Work Phone: Repair of shoulder Jasmina M Hoy Work Phone: Plan of Treatment Date Care Activity Detail Author Start: 08-12-2032 DTaP/Tdap/Td Vaccine s (2 - Tdap) DTaP/Tdap/Td Vaccines (2 - Tdap) [facility] Start: 02-14-2026 End: 02-14-2026 Patient encounter procedure 02/14/2026 1:40 PM EDT Office Visit [facility] [address] [place] [address] Gretchen Person, [address] [place] [address] [facility] Start: 05-02-2025 Influenza vaccination Influenz a Vaccine (Season Ended) [facility] Start: 02-14-2025 End: 02-14-2026 Alanine aminotransferase [Enzymatic activity/volume] in Serum or Plasma by With P-5'-P Alanine Aminotransferase Lab Routine Mixed hyperlipidemia Coronary artery disease involving [place] coronary artery of [place] heart without angina pectoris Expected: 02/14/2025 (Approximate), Expires: 02/14/2026 [facility] Service Area Work Phone: Comment on above: Expected: 02/14/2025 (Approximate), Expires: 02/14/2026 Start: 02-14-2025 End: 02-14-2026 Aspartate aminotransferase [Enzymatic activity/volume] in Serum or Plasma by With P-5'-P Aspartate Aminotransferase Lab Routine Mixed hyperlipidemia Coronary artery disease involving [place] coronary artery of [place] heart without angina pectoris Expected: 02/14/2025 (Approximate), Expires: 02/14/2026 [facility] Work Phone: Comment on above: Expected: 02/14/2025 (Approximate), Expires: 02/14/2026 Start: 02-14-2025 End: 02-14-2026 Basic metabolic 2000 panel - Serum or Plasma Basic Metabolic Panel Lab Routine Mixed hyperlipidemia Coronary artery disease involving [place] coronary artery of [place] heart without angina pectoris Expected: 02/14/2025 (Approximate), Expires: 02/14/2026 [facility] Work Phone: Comment on above: Expected: 02/14/2025 (Approximate), Expires: 02/14/2026 Start: 02-14-2025 End: 02-14-2026 Creatine kinase [Enzymatic activity/volume] in Serum or Plasma Creatine Kinase Lab Routine Mixed hyperlipidemia Coronary artery disease involving [place] coronary artery of [place] heart without angina pectoris Expected: 02/14/2025 (Approximate), Expires: 02/14/2026 [facility] Work Phone: Comment on above: Expected: 02/14/2025 (Approximate), Expires: 02/14/2026 Start: 05-02-2024 COVID-19 Vaccine () COVID-19 Vaccine () [facility] Start: 05-02-2024 Influenza vaccination Influenza Vacc ine (#1) [facility] Start: 04-13-2024 End: 04-13-2025 Alanine aminotransferase [Enzymatic activity/volume] in Serum or Plasma by With P-5'-P Alanine Aminotransferase Lab Routine Hyperlipidemia, unspecified hyperlipidemia type Expected: 04/13/2024 (Approximate), Expires: 04/13/2025 [facility] Service Area Work Phone: Comment on above: Expected: 04/13/2024 (Approximate), Expires: 04/13/2025 Start: 04-13-2024 End: 04-13-2025 Aspartate aminotransferase [Enzymatic activity/volume] in Serum or Plasma by With P-5'-P Aspartate Aminotransferase Lab Routine Hyperlipidemia, unspecified hyperlipidemia type Expected: 04/13/2024 (Approximate), Expires: 04/13/2025 [facility] Work Phone: Comment on above: Expected: 04/13/2024 (Approximate), Expires: 04/13/2025 Start: 04-13-2024 End: 04-13-2025 Basic metabolic 2000 panel - Serum or Plasma Basic Metabolic Panel Lab Routine Hyperlipidemia, unspecified hyperlipidemia type Expected: 04/13/2024 (Approximate), Expires: 04/13/2025 [facility] Work Phone: Comment on above: Expected: 04/13/2024 (Approximate), Expires: 04/13/2025 Start: 04-13-2024 End: 04-13-2025 Lipid 1996 panel - Serum or Plasma Lipid Panel Lab Routine Hyperlipidemia, unspecified hyperlipidemia type Expected: 04/13/2024 (Approximate), Expires: 04/13/2025 [facility] Work Phone: Comment on above: Expected: 04/13/2024 (Approximate), Expires: 04/13/2025 Start: 05-02-2023 COVID-19 Vaccine () COVID-19 Vaccine () [facility] Start: 04-03-2023 FUV, Provider: Gretchen Person, Status: Pen, Time: 11:20 AM FUV, Provider: Gretchen Person, Status: Pen, Time: 11:20 AM [facility] 250 DO Work Phone: Start: 04-02-2022 FUV, Provider: Gretchen Person, Status: Pen, Time: 10:50 AM FUV, Provider: Gretchen Person, Status: Pen, Time: 10:50 AM [employer] 250 DO Work Phone: Start: 2016 Zoster Vaccines (1 of 2) Zoster Vacc oswaldo (1 of 2) [facility] Start: 2006 Screening for malign ant neoplasm of breast Mammogram [facility] Start: 1987 Screening for malign ant neoplasm of cervix [facility] Start: 1985 Hepatitis B Vaccines (1 of 3 - 19+ 3-dose series) Hepatitis B Vaccines (1 of 3 - 19+ 3-dose series) [facility] Start: 1985 Pneumococcal vaccination Pneum ococcal Vaccine (1 of 2 - PCV) [facility] Start: 1984 Diabetes mellitus screening Diabetes Screening [facility] Start: 1984 Hepatitis C screening Hepatitis C Sc reening [facility] Start: 1972 Pneumococcal Vaccine : Pediatrics (0 to 5 Years) and At-Risk Patients (6 to 64 Years) (1 of 2 - PCV) Pneumococcal Vaccine: Pediatrics (0 to 5 Years) and At-Risk Patients (6 to 64 Years) (1 of 2 - PCV) [facility] Start: 1967 MMR Vaccines (1 of 1 - Standard series) MMR Vaccines (1 of 1 - Standard series) [facility] Start: 1966 HIV screening [facility] Start: 1966 Lipid panel Lipid Panel [facility] Start: 1966 Screening for malign ant neoplasm of colon [facility] Start: 1966 Yearly Adult Physical Yearly Adult P hysical [facility] Work Phone: NEGATED: Highlighted row has been ruled out! Planned Goals not documented [facility] Work Phone: Immunizations Immunization Date Immunization Notes Care Provider Fa driss 09-07-2021 Pfizer-BioNTech COVI D-19 Vacc 30 MCG/0.3ML Intramuscular Suspension Jasmina Cespedes Work Phone: -[facility] 250 DO Work Phone: 12-05-2020 Pfizer-BioNTech COVI D-19 Vacc 30 MCG/0.3ML Intramuscular Suspension Jasmina Cespedes Work Phone: [facility] 11-13-2020 Pfizer-BioNTech COVI D-19 Vacc 30 MCG/0.3ML Intramuscular Suspension Jasmina Cespedes Work Phone: [facility] Payers Date Payer Category Payer Blue [employer] [facility] [id number] 2024 Unknown [id number] 2023 Self-pay [id number] 2022 Medicaid [id number] 1966 Unknown [id number]. 355 1966 Unknown [id number]. 355 1966 Unknown [id number] [id number]. 355 1966 Unknown [id number] [id number]. 355 1966 Unknown [id number] [id number]. 355 1966 Unknown [id number] [id number]. 355 1966 Unknown [id number] [id number]. 593 1966 Unknown [id number] [id number]. 593 1966 Unknown [id number] [id number]. 593 1966 Unknown [id number] [id number]. 1244 1966 Unknown [id number] [id number]. 1244 1959 Unknown [id number] Unknown [id number] Unknown Unknown [id number]. 531 Social History Date Type Detail Facility Start: 02-14-2025 No illicit drug use No illicit drug use -[facility] 250 DO Work Phone: Comment on above: 1 cup of coffee zafar y. 1-2 cans of diet pepsi daily; Start: 02-14-2025 Sex Assigned At [facility] [employer] Other Start: 02-26-2021 Tobacco smoking status VAIS Smoker (finding) [facility] Start: 1965 Sex Assigned At Female [facility] Start: 04-13-2024 Tobacco smoking status NHIS Ex-smoker [facility] Work Phone: History of tobacco use Cigarette Smoker [facility] Work Phone: Start: 04-13-2024 Tobacco use and exposure Smokeless tobacco non-user [facility] Work Phone: Start: 04-13-2024 End: 02-14-2025 Alcoholic beverage intake Current drinker of alcohol (finding) [facility] Work Phone: Start: 04-13-2024 Alcohol Comment once in awhile [facility] Work Phone: Start: 1965 Sex assigned at Not on file [facility] Work Phone: Start: 04-03-2024 End: 04-13-2024 Exposure to SARS-CoV-2 (event) Not sure [facility] NEGATED: Highlighted row - - [facility] Work Phone: Medical Equipment Procedure Code Equipment Code Equipment Origin al Text Equipment Identifier Dates Drug-eluting coronary artery stent, [id number] lymer-coated [id number] FDA Start: 02-26-2021 Femoral artery closure plug/patch, synthetic polymer [id number] FDA Start: 02-26-2021 Button, Biceps 2 .6 X 12mm Case [id number] Start: 10-26-2019 Comment on above: Description: Convert ed from [facility]. Please see archived information for full log information. Atlantic, Biocom[employer] site [place] Ft, 5.5 X 14.7mm, W/Two 1.3 S Case [id number] Start: 10-26-2019 Comment on above: Description: Convert ed from [facility]. Please see archived information for full log information. Drill Pin, Butto n, Biceps, 3.2mm Case [id number] Start: 10-26-2019 Comment on above: Description: Convert ed from [facility]. Please see archived information for full log information. Functional Status Date Assessment Result Facility NEGATED: Highlighted row Functional performance Functional status health issues are not documented [facility] Work Phone: Mental Status Date Assessment Result Facility NEGATED: Highlighted row Cognitive function [Interpretation] Cognitive status health issues are not documented Disease [facility] [place]: Clinical Notes 01-25-2023 to 02-15-2025 Assessment & Plan Note - HARRIS Smith - 02/15/2025 2:52 PM EDTAssessment & Plan Note - HARRIS Smith - 02/15/2025 2:52 PM EDTPatient InstructionsPatient Instructions Note Date & Type Note Facility 02-15-2025 Evaluation + Plan note Associated Problem(s): Hypersomnolence Hypersomnolence, BMI 42. She reports a positive nocturnal sleep study approximately 1 year ago, unfortunately she did not have insurance to follow-up with the inpatient testing. Will refer back over to sleep clinic for evaluation management. [facility] Work Phone: 02-15-2025 Miscellaneous Notes Associated Problem(s): Hypersomnolence Hypersomnolence, BMI 42. She reports a positive nocturnal sleep study approximately 1 year ago, unfortunately she did not have insurance to follow-up with the inpatient testing. Will refer back over to sleep clinic for evaluation management. Associated Problem(s): BMI 40.0-44.9, adult (Multi) Reviewed the merits of healthy lifestyle choices on overall cardiovascular health. Associated Problem(s): HTN (hypertension) Optimal in office Associated Problem(s): Mixed hyperlipidemia High intensity statin We will be checking labs Associated Problem(s): Coronary artery disease involving [place] coronary artery of [place] heart without angina pectoris February 26, 2021 acute anterior STEMI managed emergently Dr. Person. Mid LAD PCI 6 Pecan Gap 3.5 x 22 mm Proximal RCA 30-50% Otherwise no residual coronary artery disease. Her prior angina symptom was hand and shoulder pain-denies any reoccurrence. Current daily activity greater than 4 METS documented in this encounter [facility] Work Phone: 02-15-2025 Evaluation + Plan note Associated Problem(s): BMI 40.0-44.9, adult (Multi) Reviewed the merits of healthy lifestyle choices on overall cardiovascular health. [facility] Work Phone: 02-15-2025 Evaluation + Plan note Associated Problem(s): HTN (hypertension) Optimal in office [facility] Work Phone: 02-15-2025 Evaluation + Plan note Associated Problem(s): Mixed hyperlipidemia High intensity statin We will be checking labs [facility] Work Phone: 02-15-2025 Evaluation + Plan note Associated Problem(s): Coronary artery disease involving [place] coronary artery of [place] heart without angina pectoris February 26, 2021 acute anterior STEMI managed emergently Dr. Person. Mid LAD PCI 6 Pecan Gap 3.5 x 22 mm Proximal RCA 30-50% Otherwise no residual coronary artery disease. Her prior angina symptom was hand and shoulder pain-denies any reoccurrence. Current daily activity greater than [address] [facility] Work Phone: 02-14-2025 History of Presen t illness Narrative Chief Complaint Seem to be doing okay Reason for Visit Annual follow-up Patient presents to the office today for outpatient follow-up for coronary artery disease and secondary prevention. Last evaluated in clinic by Dr. Person April 2024 Presents today ambulatory with steady gait. Accompanied by patient Patient denies any hospitalizations or significant changes to interval medical history since last office follow-up. Reports following routinely with PCP. History of Present Illness Patient is a pleasant 59-year-old female who presents to the office today with no voiced cardiovascular complaints. 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 She tries to walk on a daily basis. She does housework and gardening. Goes up and down steps on a regular basis. Her prior angina symptom was hand aching and shoulder pain-denies any reoccurrence, no no utilization of nitro. She has some concerns of some mild myalgia and is questioning if it could be due to statin. Will add CPK to labs. Otherwise, she had a positive nocturnal sleep study but ran out of healthcare and was unable to complete inpatient study. Will refer back to the sleep clinic. Discussed the dynamic nature of coronary artery disease and the importance of seeking medical attention if new symptoms arise. Patient reports that overall has no complaint(s) of chest pain, chest pressure/discomfort, claudication, dyspnea, exertional chest pressure/discomfort, fatigue, irregular heart beat, lower extremity edema, and near-syncope Daily activity: > 4 METs Denies any change in exercise capacity or functional tolerance since last office visit. The importance of secondary prevention reviewed: HTN: Optimal HLD: Treated due for labs DM: Denies Smoker: Denies BMI: Reviewed the merits of healthy lifestyle choices on overall cardiovascular health. Reason, she has been taking carvedilol 6.25mg on a daily basis rather than twice daily -blood pressure is borderline in the office today and will transition over to 3.125 mg twice daily. Review of Systems Cardiovascular: Negative for chest pain, dyspnea on exertion, irregular heartbeat, leg swelling, near-syncope, orthopnea, palpitations, paroxysmal nocturnal dyspnea and syncope. Visit Vitals BP 114/72 (BP Location: Left arm, Patient Position: Sitting) Pulse 75 Ht 1.626 m (5' 4 ) Wt 112 kg (246 lb) BMI 42.23 kg/m Smoking Status Former BSA 2.25 m Physical Exam Vitals and nursing note reviewed. HENT: Head: Normocephalic. Cardiovascular: Rate and Rhythm: Normal rate and regular rhythm. Heart sounds: Normal heart sounds. Pulmonary: Effort: Pulmonary effort is normal. Breath sounds: Normal breath sounds. Abdominal: Palpations: Abdomen is soft. Musculoskeletal: Right lower leg: No edema. Left lower leg: No edema. Skin: General: Skin is warm and dry. Neurological: General: No focal deficit present. Mental Status: She is alert. Psychiatric: Mood and Affect: Mood normal. Behavior: Behavior normal. ALLERGIES: Patient has no known allergies. Current Outpatient Medications Medication Instructions aspirin 81 mg, oral, Daily, as directed atorvastatin (LIPITOR) 80 mg, oral, Nightly buPROPion XL (WELLBUTRIN XL) 150 mg, Daily carvedilol (COREG) 3.125 mg, oral, 2 times daily (morning and late afternoon) lisinopril 5 mg, oral, Daily nitroglycerin (NITROSTAT) 0.4 mg, sublingual, Every 5 min PRN pantoprazole (ProtoNix) 40 mg EC tablet 1 tablet, Daily Assessment: Coronary artery disease involving [place] coronary artery of [place] heart without angina pectoris February 26, 2021 acute anterior STEMI managed emergently Dr. Person. Mid LAD PCI 6 Pecan Gap 3.5 x 22 mm Proximal RCA 30-50% Otherwise no residual coronary artery disease. Her prior angina symptom was hand and shoulder pain-denies any reoccurrence. Current daily activity greater than 4 METS Mixed hyperlipidemia High intensity statin We will be checking labs HTN (hypertension) Optimal in office BMI 40.0-44.9, adult (Multi) Reviewed the merits of healthy lifestyle choices on overall cardiovascular health. Hypersomnolence Hypersomnolence, BMI 42. She reports a positive nocturnal sleep study approximately 1 year ago, unfortunately she did not have insurance to follow-up with the inpatient testing. Will refer back over to sleep clinic for evaluation management. Plan: Through informed decision making process incorporating patients unique circumstances, the following treatment plan will be initiated: 1. Prescription drug management of cardiovascular medication for efficacy, adherence to treatment, side effect assessment and polypharmacy. Current treatment clinically warranted and to continue with following modifications: - Change daily coreg 6.25mg to 3.125mg twice daily 2. Labs (lipids, CPK, chem6) 3. Referral to sleep medicine at [facility] (prior + home sleep study but was not able to follow up, hypersomnolence, BMI 42) 4. Return for follow-up; in the interim, contact the office if new symptoms arise. Dr. Person annual Albaro Olmedo MSN, REIMBURSEMENT SPECIALIST-SENIOR SOFTWARE SYSTEMS ENGINEER, PMHNP-[facility] [place], [place] Please excuse any errors in grammar or translation related to this dictation. Voice recognition software was utilized to prepare this document. documented in this encounter [facility] Work Phone: 02-14-2025 Instructions HARRIS Smith - 02/14/2025 1:30 PM EDT Please bring all medicines, vitamins, and herbal supplements with you when you come to the office. Prescriptions will not be filled unless you are compliant with your follow up appointments or have a follow up appointment scheduled as per instruction of your physician. Refills should be requested at the time of your visit. PLAN: Through informed decision making process incorporating patients unique circumstances, the following treatment plan will be initiated: 1. Prescription drug management of cardiovascular medication for efficacy, adherence to treatment, side effect assessment and polypharmacy. Current treatment clinically warranted and to continue with following modifications: - Change daily coreg 6.25mg to 3.125mg twice daily 2. Labs (lipids, CPK, chem6) 3. Referral to sleep medicine at [facility] (prior + home sleep study but was not able to follow up, hypersomnolence, BMI 42) 4. Return for follow-up; in the interim, contact the office if new symptoms arise. Dr. Person annual documented in this encounter [facility] Work Phone: 04-13-2024 History of Presen t illness Narrative Subjective Dionicio Nunez is a 58 y.o. female Chief Complaint Annual Exam 58-year-old female returns for follow-up after 2-year hiatus, she has had no hospitalizations, nitrate usage, cardiovascular events in the interim. In 2020 she sustained anterior STEMI with revascularization of the proximal LAD fortunately with preserved left ventricular function. She did follow-up with nurse practitioner and myself once She has underlying obesity, mild hypertension, she does snore quite a bit and she has not had any workup for sleep apnea. She has not had any laboratory assessment in regards to chemistry profile or lipid panel in over 1 year. She remains on appropriate GDMT as reviewed she is no longer on DAPT. Recommendations, obtain Chem-6 and lipid panel, obtain sleep study, recommend following up on a regular basis annually from a cardiovascular standpoint given her history and need for ongoing surveillance and prescription advice etc. Review of Systems Respiratory: Positive for snoring. Neurological: Positive for dizziness and light-headedness. All other systems reviewed and are negative. Vitals: 04/13/24 1550 BP: 132/84 BP Location: Left arm Patient Position: Sitting Pulse: 60 Weight: 114 kg (252 lb) Height: 1.626 m (5' 4 ) Objective Physical Exam Constitutional: Appearance: Normal appearance. HENT: Nose: Nose normal. Neck: Vascular: No carotid bruit. Cardiovascular: Rate and Rhythm: Normal rate. Pulses: Normal pulses. Heart sounds: Normal heart sounds. Pulmonary: Effort: Pulmonary effort is normal. Abdominal: General: Bowel sounds are normal. Palpations: Abdomen is soft. Musculoskeletal: General: Normal range of motion. Cervical back: Normal range of motion. Right lower leg: No edema. Left lower leg: No edema. Skin: General: Skin is warm and dry. Neurological: General: No focal deficit present. Mental Status: She is alert. Psychiatric: Mood and Affect: Mood normal. Behavior: Behavior normal. Thought Content: Thought content normal. Judgment: Judgment normal. Allergies Patient has no known allergies. Current Medications Current Outpatient Medications: aspirin 81 mg EC tablet, TAKE ONE TABLET BY MOUTH ONCE DAILY DIRECTED, Disp: 30 tablet, Rfl: 11 atorvastatin (Lipitor) 80 mg tablet, TAKE ONE TABLET BY MOUTH ONCE DAILY AT BEDTIME, Disp: 30 tablet, Rfl: 11 buPROPion XL (Wellbutrin XL) 150 mg 24 hr tablet, 1 tablet (150 mg) once daily., Disp: , Rfl: carvedilol (Coreg) 6.25 mg tablet, TAKE 1 TABLET DAILY, Disp: 30 tablet, Rfl: 11 lisinopril 5 mg tablet, TAKE ONE TABLET BY MOUTH ONCE DAILY, Disp: 30 tablet, Rfl: 11 nitroglycerin (Nitrostat) 0.4 mg SL tablet, Place under the tongue., Disp: , Rfl: pantoprazole (ProtoNix) 40 mg EC tablet, Take 1 tablet (40 mg) by mouth once daily., Disp: , Rfl: Assessment/Plan 1. Coronary artery disease involving [place] coronary artery of [place] heart without angina pectoris 2. Hyperlipidemia, unspecified hyperlipidemia type 3. Hypertension, unspecified type 4. S/P PTCA (percutaneous transluminal coronary angioplasty) 5. Snoring 6. Former smoker 7. BMI 40.0-44.9, adult (Multi) Scribe Attestation By signing my name below, I, Alisha Vick RN , Scribe attest that this documentation has been prepared under the direction and in the presence of Gretchen Person DO. Provider Attestation - Scribe documentation All medical record entries made by the Scribe were at my direction and personally dictated by me. I have reviewed the chart and agree that the record accurately reflects my personal performance of the history, physical exam, discussion and plan. documented in this encounter [facility] Work Phone: 04-13-2024 Instructions Alisha Sloan RN - 04/13/2024 3:10 PM EDT Please bring all medicines, vitamins, and herbal supplements with you when you come to the office. Prescriptions will not be filled unless you are compliant with your follow up appointments or have a follow up appointment scheduled as per instruction of your physician. Refills should be requested at the time of your visit. BMI was above normal measurement. Current weight: 114 kg (252 lb) Weight change since last visit (-) denotes wt loss 22 lbs Weight loss needed to achieve BMI 25: 106.7 Lbs Weight loss needed to achieve BMI 30: 77.6 Lbs Provided instructions on dietary changes Provided instructions on exercise. The following attachments cannot be sent through Care Everywhere.Heart Healthy Diet (Icelandic)documented in this encounter [facility] Work Phone: 07-27-2023 Evaluation note Encounter Date Diagnosis Assessment Notes Jul, Acute sinusitis, recurrence not specified, unspecified location (ICD-10 - J01.90) Drink plenty fluids, get plenty of rest. Take the amoxicillin with clavulanate and Medrol Dosepak as prescribed until gone. Use the fluticasone nasal spray as prescribed and your symptoms improved. Take the benzonatate capsules as needed for cough. Take Tylenol or Motrin as needed for aches and pains. Follow-up with your family physician if no improvement in 2 to 3 days. May return to work on Friday [employer] Other 10-16-2023 History general Narrative - Reported* Type Description Date Medical History GERD Medical History HYPERTENSION Medical History DEPRESSION AND ANXIETY Medical History COVID 6 WEEKS AGO Surgical History LEFT SHOULDER ROTATOR CUFF X 2 Surgical History RIGHT SHOULDER BICEP AND ROTATO R CUFF Surgical History STENT PLACEMENT IN HEART Surgical History KNEE SURGERY RIGHT Surgical History TONSILS Surgical History TUBES TIED Hospitalization History SEE ABOVE [employer] Other 09-11-2023 Evaluation note* Encounter Date Diagnosis Assessment Notes Treatment Notes Treatment Clinical Notes May, Left ankle pain, unspecified chronicity (ICD-10 - M25.572) May, Achilles tendinitis of left lower extremity (ICD-10 - M76.62) Achilles tendinopathy home care material was printed Drink plenty fluids, get plenty of rest. Continue home medications as prescribed. Take the Medrol Dosepak as prescribed until gone. You may take Tylenol as needed for pain. Follow-up with your family physician if no improvement in 2 to 3 days May, Calcaneal spur, left (ICD-10 - M77.32) [employer] Other 05-27-2023 Evaluation note* Encounter Date Diagnosis Assessment Notes Treatment Notes Treatment Clinical Notes December, Sore throat (ICD-10 - J02.9) December, Right otitis media, unspecified otitis media type (ICD-10 - H66.91) Middle ear infection: adult home care material was printed Drink plenty fluids, get plenty of rest. Take the amoxicillin as prescribed until gone. Use eardrops as prescribed. Take Tylenol or Motrin as needed for aches pains or fevers. Follow-up with family physician if no improvement in 2 to 3 days December, Acute otitis externa of right ear, unspecified type (ICD-10 - H60.501) Credorax Other Evaluation noteNo assessment information available [facility] Work Phone: Evaluation note* Diagnosis Coronary artery disease involving [place] coronary artery of [place] heart without angina pectoris Hyperlipidemia, unspecified hyperlipidemia type Hypertension, unspecified type S/P PTCA (percutaneous transluminal coronary angioplasty) Postsurgical percutaneous transluminal coronary angioplasty status Snoring Other dyspnea and respiratory abnormality Former smoker Personal history of tobacco use, presenting hazards to health BMI 40.0-44.9, adult (Multi) documented in this encounter [facility] Work Phone: Evaluation note* Diagnosis Hypersomnolence- Primary Hypersomnia, unspecified Mixed hyperlipidemia Coronary artery disease involving [place] coronary artery of [place] heart without angina pectoris Hypertension, unspecified type BMI 40.0-44.9, adult (Multi) documented in this encounter [facility] Work Phone: History general Narrative - Reported* Type Description Date Medical History GERD Medical History HYPERTENSION Medical History DEPRESSION AND ANXIETY Surgical History LEFT SHOULDER ROTATOR CUFF X 2 Surgical History RIGHT SHOULDER BICEP AND ROTATO R CUFF Surgical History STENT PLACEMENT IN HEART Surgical History KNEE SURGERY RIGHT Surgical History TONSILS Surgical History TUBES TIED Hospitalization History SEE ABOVE Credorax Other Reason for referral (narrative)* Consultation (Routine) - Authorized Specialty Diagnoses / Procedures Referred By Abel sena Referred To Contact Sleep Medicine Diagnoses Snoring Gretchen Person DO [address] [address], [place] [id number] Referral ID Status Reason Start Date Expiration Date Visits Requested Visits Authorized [id number] Authorized Specialty Services Required 04/13/2024 04/13/2025 1 1 [facility] Work Phone: Summary Purpose Family History No Family History Records Found Mother Name Dates Details No pertinent family history( V49.89, Z78.9) Status:Active Mother Name Dates Details No pertinent family history( V49.89, Z78.9) Status:Active Mother Name Dates Details No pertinent family history( V49.89, Z78.9) Status:Active Mother Name Dates Details No pertinent family history( V49.89, Z78.9) Status:Active Unknown Family Member Name Dates Details Family history of malignant neoplasm of breast: Mother, Father(V16.3, Z80.3) Status:Active Family history of cardiac di sorder: Father(V17.49, Z82.49) Status:Active Unknown Family Member Name Dates Details Family history of cardiac di sorder: Father(V17.49, Z82.49) Status:Active Family history of malignant neoplasm of breast: Mother, Father(V16.3, Z80.3) Status:Active Unknown Family Member Name Dates Details Family history of cardiac di sorder: Father(V17.49, Z82.49) Status:Active Family history of malignant neoplasm of breast: Mother, Father(V16.3, Z80.3) Status:Active Unknown Family Member Name Dates Details Family history of malignant neoplasm of breast: Mother, Father(V16.3, Z80.3) Status:Active Family history of cardiac di sorder: Father(V17.49, Z82.49) Status:Active Unknown Family Member Name Dates Details Family history of cardiac di sorder: Father(V17.49, Z82.49) Status:Active Family history of malignant neoplasm of breast: Mother, Father(V16.3, Z80.3) Status:Active Unknown Family Member Name Dates Details Family history of malignant neoplasm of breast: Mother, Father(V16.3, Z80.3) Status:Active Family history of cardiac di sorder: Father(V17.49, Z82.49) Status:Active Relationship Condition Age at Onset Recorded Date/T sonia father History of coronary artery bypass surgery Unknown Advance Directives No Advanced Directives Records Found Advance Directive Response Recorded Date/ Time Advance Directives No February 26 2:06pm Procedure Findings Note Post Operative Note: PreOp D iagnosis: Right shoulder rotator cuff tear and impingement Post-Procedure Diagnosis: Right shoulder labral tear, long head biceps tear, rotator cuff tear and impingement Procedure: 1. Right shoulder extensive debridement of labrum bicep bicep base and bicep tenotomy 2. Right shoulder arthroscopic subacromial decompression 3. Right shoulder arthroscopic rotator cuff repair 4. Right shoulder open long head biceps tenodesis 5. Surgeon: Jazmin Bush M.D. Resident/Fellow/Other Sheet Writer: Jazmin Morrow PA-C Anesthesia: Gen. to scalene block Estimated Blood Loss (mL): none Specimen: yes. Right shoulder proximal long head biceps tendon Findings: Right shoulder labral tear bicep tear rotator cuff tear and impingement Additional Details: Anderson Morrow physician medical administrative assistant (PAC) was required and present throughout the entire case. Given the nature of the disease process and the procedure, a skilled ophthalmic surgical assistant was necessary during the entire case. The ass (more content not included)... Note Post Operative Note: Post-Pr ocedure Diagnosis: Right carpal tunnel syndrome Procedure: 1. 2. 3. 4. 5. Surgeon: Theo Starks D.O. Resident/Fellow/Other Sheet Writer: YIN Mullins Estimated Blood Loss (mL): Less than 10 cc Specimen: no Findings: Right carpal tunnel syndrome Operative Report Dictated: Dictation: not applicable - note contains Operative Report Operative Report: Preoperative diagnosis: Right carpal tunnel syndrome Postoperative diagnosis: Right carpal tunnel syndrome Procedure planned: Right carpal tunnel release Procedure performed: Right carpal tunnel release Surgeon: Theo Starks D.O. Sheet Writer:YIN Mullins The physician medical administrative assistant was present to the entire case. Given the nature of the disease process and the procedure to be performed a skilled surgical training specialist was necessary during the case. The medical administrative assistant was necessary in order to hold retractors and directly assist in the operation. A certified public accountant was at the back table managing instruments and s (more content not included)... Chief Complaint * DIONICIO NUNEZ is being seen for a 4 month follow-up of. * Patient is 55-year-old female who returns for 6-month follow-up and doing well. She had a anterior WV in January of this year underwent PCI of the LAD has normal left ventricular function. Her only comorbidity currently is hypertension and obesity. She has no cardiovascular complaints, nitrate usage. She is finishing up cardiac rehab currently. * She is compliant with current medical therapies we have counseled her on dietary discretion and weight loss * Recommendations, follow-up in 6 months on same therapies * DIONICIO NUNEZ is being seen for a 6 month follow-up of. * 56-year-old female returns for 6-month follow-up and she is doing well she has no cardiovascular complaints, angina or nitrate usage or hospitalizations. She did have COVID illness 2 weeks ago and isrecovered from this she was treated as an outpatient sounded like she had minimal symptoms other than upper respiratory complaints. * She sustained anterior WV in January 2021 with primary revascularization of the LAD with normal left ventricular function. She remains moderately overweight but otherwise symptom-free and is active and remains on appropriate guideline directed medical therapies * Recommendations: She can discontinue Brilinta, she is cleared to proceed with tooth extraction preferably on aspirin therapy, we recommend dietary discretion weight loss and exercise and will follow-up in 1 year * DIONICIO NUNEZ is being seen for a 6 month follow-up of. * 56-year-old female returns for 6-month follow-up and she is doing well she has no cardiovascular complaints, angina or nitrate usage or hospitalizations. She did have COVID illness 2 weeks ago and isrecovered from this she was treated as an outpatient sounded like she had minimal symptoms other than upper respiratory complaints. * She sustained anterior WV in January 2021 with primary revascularization of the LAD with normal left ventricular function. She remains moderately overweight but otherwise symptom-free and is active and remains on appropriate guideline directed medical therapies * Recommendations: She can discontinue Brilinta, she is cleared to proceed with tooth extraction preferably on aspirin therapy, we recommend dietary discretion weight loss and exercise and will follow-up in 1 year Additional Source Comments INFORMATION SOURCE (unrecogn ized section and content) DATE CREATED AUTHOR 08/14/2018 [facility] DATE CREATED AUTHOR AUTHOR'S ORGANIZ ATION 03/24/2020 [facility] DATE CREATED AUTHOR AUTHOR'S ORGANIZ ATION 05/19/2020 [facility] DATE CREATED AUTHOR AUTHOR'S ORGANIZ ATION 04/04/2022 [employer] DATE CREATED AUTHOR AUTHOR'S ORGANIZ ATION 08/21/2022 [facility] DATE CREATED AUTHOR AUTHOR'S ORGANIZ ATION 05/20/2023 [facility] DATE CREATED AUTHOR AUTHOR'S ORGANIZ ATION 02/16/[address] [facility] REASON FOR VISIT (unrecogniz ed section and content) Reason Comments Annual Exam Reason Comments Annual Exam 1 year follow up for cad Care Teams (unrecognized sec tion and content) Team Status: Active Member Role Status Dates Jasmina Cespedes MD Primary Care Provider Active Team Status: Inactive Member Role Status Dates Jasmina Cespedes MD Primary Care Provider Active SOMMER Wahl Attending Provider Active Financial Aid Director Relationship Specialty Start Date End Date Jasmina Cespedes MD [address] [place] [address] PCP - General 10/14/19 Financial Aid Director Relationship Specialty Start Date End Date Jasmina Cespedes MD [address] [place] [address] PCP - General 10/14/19 Goals (unrecognized section and content) Goals may be documented in a n alternate section FOR RECORDS PERTAINING TO PATIENTS WHO ARE OR HAVE BEEN ENROLLED IN A CHEMICAL DEPENDENCY/SUBSTANCEABUSE PROGRAM, SOME INFORMATION MAY BE OMITTED. This clinical summary was aggregated from multiple sources. Caution should be exercised in using it in the provision of clinical care. This summary normalizes information from multiple sources, and as a consequence, information in this document may materially change the coding, format and clinical context of patient data. In addition, data may be omitted in some cases. CLINICAL DECISIONS SHOULD BE BASED ON THE PRIMARY CLINICAL RECORDS. [facility] [employer] provides no warranty or guarantee of the accuracy or completeness of information in this document.
== END 2025-03-21 20:56 | disposition home or self-care (01) ==
LOC: SLEEP 20:55
PROVIDERS: PCP Nurse Practitioner; Visit Provider Nurse Practitioner
DX: G47.33 Obstructive sleep apnea (adult) (pediatric) (principal); G47.10 Hypersomnia, unspecified
CPT/HCPCS: 95811

== ENCOUNTER 2025-06-29 12:26 | Outpatient (OUT) | payer BC, SELFPAY ==
--- OUTSIDE RECORDS SUMMARY | 2025-06-29 12:29 | XMS_ITS | Patient Health Record ---
Author Organization [facility] Address [address] [place] [address] Care Team Providers Care Home Delivery Driver Name Role Phone Yasir Eduardo Primary Care Provider [phone] Reason For Referral No Information Plan Of Treatment No Information Insurance Providers Payer Name Payer Address Payer Phone Subscriber Number Group Number Insured Name Patient Relationship to Insured Coverage Start Date Coverage End Date [employer] [place] Medicaid [address] [place] [address] [id number] DIONICIO NUNEZ Self - patient is the insured 3 Wrap CFC Coker [address] [place] [id number] NUNEZ - patient is the vaqzqnd0010/02/2022zDENTAL DQ PARAMOUNT- termed 10/01/22[address] [place] [phone] [id number], LORISelf - patient is the [id number] MEDICAID CFC after PARAMOUNT-termed 10/01/22[address] [place] [address] [id number], LORISelf - patient is the insured zPARAMOUNT ADVANTAGE-termed 10/01/22[address] [place] [id number] - patient is the insured zMEDICAID CFC after PARAMOUNT-termed 10/01/22[address] [place] [id number], LORISelf - patient is the sajjpgv17/3Dental Coker DQ Terminated 08/31/24[address] [place] [id number], LORISelf - patient is the fflfkjr0910/02/2022ental Wrap [facility] Coker BCBS Termed [address] [place] [id number], LORISelf - patient is the xnererm9210/02/2022
--- OUTSIDE RECORDS SUMMARY | 2025-06-29 12:30 | XMS_ITS | Patient Health Record ---
Author Organization [facility] [place] Address [address] [place] [address] Care Team Providers Care Hoop Driving Machine Operator Helper Name Role Phone Rubina Corbin Primary Care Provider Domenica Ceballos [phone] Allergies No Known Allergies Results Component Value Reference Range Notes MM tomosynthesis screening B I Reviewed date:03/17/2025 05:13:00 PM Interpretation: Performing Lab: Notes/Report: Source Facility: [place] [address] Mammography Report Signed Patient: LUCINDA NUNEZ MR#: [id number] : 1965 Acct:[id number] Age/Sex: 59 / F ADM Date: 03/17/25 Loc: MAMMO Attending Dr: Jasmina Tavarez M.D. Ordering Physician: Jasmina Tavarez M.D. Results: Date of Service: 03/17/25 Follow Up: Procedure(s): MM tomosynthesis screening BI Accession Number(s): [id number] cc: Jasmina Tavarez M.D.; Deborah Olmedo NP Patient Name: LUCINDA NUNEZ MR#: [id number] : 1965 Exam Date: 03/17/2025 Ordering Doctor: [...] breast cancer at age 59. LOCATION: [facility] BREAST COMPOSITION: The breasts are heterogeneously dense, [...] Signed By: 03/17/25 1600 DD/ 1559 TD/TT: Card Placer: Reason For Referral No Information Medications Medication SIG (Take, Route, Frequency, Duration) Notes Start Date End Date Status Aspirin Low Dose 81 MG Oral; Duration: 30 Days ActivetiZANidine HCl 4 MG2 tabs Orally qhs; Duration: 30 days03/15/2024ctive Carvedilol 6.25 MG1 tablet with food Orally Once daily; Duration: 30 daysActive Atorvastatin Calcium 80 MGTAKE ONE TABLET BY MOUTH ONCE DAILY AT BEDTIME Oral; Duration: 30 DaysActivebuPROPion HCl ER (XL) 150 MG1 tablet in the morning Orally Once a day; Duration: 30 daysActiveLisinopril 5 MG1 tablet Orally Once a day; Duration: 30 daysActiveDiclofenac Sodium 75 MG1 tablet as needed Orally Twice a day; Duration: 30 rmyjLGN9503/15/2024ctivePantoprazole Sodium 40 mgTake 1 tablet orally once daily; Duration: 90 daysActive Social History Tobacco Use: Social History Observation Description Date Details (start date - stop date) Former Smoker 09/01/1985 - 09/01/2021 Tobacco Use/Smoking Question Answer Notes Patient is a former smoker When did you start smoking?09/01/1985When did you stop smoking?09/01/2021lcohol Screen (Audit-C) Question Answer Notes Did you have a drink containing alcohol in the p ast year? No Vaebcn5WblcitzhihgtodNrxtxetfQYMUK-P (Standard) Question Answer Notes Did you have a drink containing alcohol in the p ast year? No Kriccl1LsirbnciidbsgtOhkmjuws Problems Problem Type SNOMED Code ICD Code Onset Dates Problem Status W/U Status Risk Notes Problem Sinusitis (72015543) Sinusitis (J32.9) ActiveconfirmedProblemWell adult (709746503)Well adult (Z00.00)Activeconfirmed ProblemPain in left foot (269899832348895)Left foot pain (M79.672)Active confirmedProblemAcute bronchiolitis (9517421)Acute bronchiolitis (J21.9)Active confirmedProblemDerangement of knee (29084157)Knee derangement, right (M23.91) ActiveconfirmedProblemDerangement of knee (45642237)Knee internal derangement, unspecified laterality (M23.90)ActiveconfirmedProblemLow back pain (finding) (888441847)Low back pain at multiple sites (M54.50)Activeconfirmed Vital Signs Temperature 98.2 degrees Fahrenheit 07/01/2024 Blood pressure ncelbdavv26 mm Hg06/09/20250082Erpfam96 in06/09/2025lood pressure ozqtsmxp637 mm Hg06/09/20257703Jcvnwy204.0 lbs1MI43.25 kg/m206/09/2025 Encounters Encounter Location Date Provider Diagnosis [address] [address] 06/09/2025 Corbin Hoy Low back pain at multiple sites M54.[address] [address] 07/01/2024 Domenica Hernandezmer Sinusitis J32.[address] [address] 11/03/2024 Corbin Hoy Left foot pain M79.672 and Achilles tendinitis M76.[address] [place] [address] 03/23/2025 Corbin Hoy Knee derangement, right M23.91 and Well adult Z00.00 [facility] [address] [place] [address] 03/17/2025 Corbin Hoy Abnormal mammogram R92.8 [facility] [address] [place] [address] 03/24/2025 Corbin Hoy Assessments Encounter Date Diagnosis (ICD Code) Assessment Notes Treatment Notes Treatment Clinical Notes Section Notes 07/01/2024 Sinusitis (ICD-10 - J32.9) fu if not iqbrpdlif14/05/2025Left foot pain (ICD-10 - M79.672)11/03/2024hilles tendinitis (ICD-10 - M76.60)03/23/2025Knee derangement, right (ICD-10 - M23.91) 03/23/2025Well adult (ICD-10 - Z00.00)06/09/2025Low back pain at multiple sites (ICD-10 - M54.50)03/17/2025bnormal mammogram (ICD-10 - R92.8)06/09/2025Other Recommended to rest and use a heating pad on the area. Take NSAIDs for pain as needed Plan Of Treatment Pending Test Test Name Order Date CMP (COMPLETE METABOLIC PANEL) HEMOGLOBIN A1C (GLYCO) 11/19/2023 HEMOGLOBIN A1C (GLYCO) 03/23/2025 IRON, TOTAL 03/23/2025 IRON, TOTAL 11/19/2023 LIPID PANEL (CHOL/TRIG/HDL/LDL) 11/19/19 LIPID PANEL (CHOL/TRIG/HDL/LDL) 03/23/20 CBC WITH DIFF 11/19/2023 VITAMIN D, 25 LEVEL (TOTAL) 03/23/2025 Insulin Level 03/23/2025 Insulin Level 11/19/2023 STOOL OCCULT BLOOD 11/19/2023 STOOL OCCULT BLOOD 03/23/2025 XR FOOT LT MIN 3 VIEWS 11/19/2023 XR LSPINE MIN 4 VIEWS 06/09/2025 THYROID PANEL (T4/TSH/FREE T3) 07/23/202 5 THYROID PANEL (T4/TSH/FREE T3) 4 BI MAMMOGRAM DIAGNOSTIC TOMOSYNTHESIS BI LATERAL 03/17/2025 BI US BREAST COMPLETE LEFT 03/17/2025 CMP (COMP MET VILLAREAL) w/eGFR CKD-EPI 2024 CBC WITH DIFF 03/23/2025 Insurance Providers Payer Name Payer Address Payer Phone Subscriber Number Group Number Insured Name Patient Relationship to Insured Coverage Start Date Coverage End Date [employer] ACC[employer] PPO PLUS LOCAL PLAN [address] [place] [phone] [id number] Jelly Nunez - patient is the insured Medications Administered Medication Instructions Date of Administration Dosage Notes Ketorolac Tromethamine jc83Gnxrepifa Ovecyjaayedh02/09/920913 mgOrphenadrine Citrate 0 lp97Bpkeogdygynh Lfoxrnu41/09/737127 mg Medical (General) History Medical History History ICD Code Allergic rhinitis J30.9 Carpal tunnel syndrome, right G56.[address] elevation (STEMI) myocardi al infarction of anterior wall I22.0 Sciatica M54.30 Surgical History Surgery Date(Month/Year) Rt knee meniscus repair left rotator cuff repair b3Zxcvhjgj Arthroscopy, left09/08/13Right Rotator duff lhyspj2479Cvkiqdw Stent placementHospitalization History Reason Date(Month/Year) see above
--- OUTSIDE RECORDS SUMMARY | 2025-06-29 12:30 | XMS_ITS | Clinical Summary ---
Author Organization [facility] Address [address] [place] [address] Phone Care Team Providers Care Electronics Processor Name Role Phone Cesar Cespedes MD Primary Care Provider [phone] Allergies No known active allergies Medications MedicationSigDispense QuantityRefillsLast FilledStart DateEnd DateStatus buPROPion XL (Wellbutrin XL) 150 mg 24 hr tablet 1 tablet (150 mg) once daily.01/07/2024ctive pantoprazole (ProtoNix) 40 mg EC tablet Take 1 tablet (40 mg) by mouth once daily.07/24/2020Active aspirin 81 mg EC tablet Indications:Coronary artery disease involving [place] coronary artery of [place] heart without angina pectorisTake 1 tablet (81 mg) by mouth once daily. as directed 90 tablet /ctive atorvastatin (Lipitor) 80 mg tablet Indications:Mixed hyperlipidemiaTake 1 tablet (80 mg) by mouth once daily at bedtime. 90 tablet /ctive lisinopril 5 mg tablet Indications:Coronary artery disease involving [place] coronary artery of [place] heart without angina pectorisTake 1 tablet (5 mg) by mouth once daily. 90 tablet /ctive nitroglycerin (Nitrostat) 0.4 mg SL tablet Indications:Coronary artery disease involving [place] coronary artery of [place] heart without angina pectorisPlace 1 tablet (0.4 mg) under the tongue every 5 minutes if needed for chest pain. 90 tablet tive carvedilol (Coreg) 3.125 mg tablet Indications:Coronary artery disease involving [place] coronary artery of [place] heart without angina pectorisTake 1 tablet (3.125 mg) by mouth 2 times daily (morning and late afternoon). 60 tablet 110506/6Active Active Problems ProblemNoted DateDiagnosed WxpbEnygxzesjcdsgiu30/16/2025 Assessment & Plan (02/15/2025 2:52 PM EDT): Hypersomnolence, BMI 42. She reports a positive nocturnal sleep study approximately 1 year ago, unfortunately she did not have insurance to follow-up with the inpatient testing. Will refer back over to sleep clinic for evaluation management. BMI 40.0-44.9, adult04/13/2024 Assessment & Plan (02/15/2025 2:51 PM EDT): Reviewed the merits of healthy lifestyle choices on overall cardiovascular health. Former ibtdyd364Carpal tunnel syndrome of right wrist4Coronary artery disease involving [place] coronary artery of [place] heart without angina zjldjwao44/07/2024 Assessment & Plan (02/15/2025 2:51 PM EDT): February 26, 2021 acute anterior STEMI managed emergently Dr. Hanks. Mid LAD PCI 6 [place] 3.5 x 22 mm Proximal RCA 30-50% Otherwise no residual coronary artery disease. Her prior angina symptom was hand and shoulder pain-denies any reoccurrence. Current daily activity greater than 4 METS Mixed nptpagstnlrrjd40/07/2024 Assessment & Plan (02/15/2025 2:51 PM EDT): High intensity statin We will be checking labs HTN (hypertension)02/06/2024 Assessment & Plan (02/15/2025 2:51 PM EDT): Optimal in office S/P PTCA (percutaneous transluminal coronary angioplasty)02/06/2024 Immunizations ImmunizationAdministration DatesNext DuePfizer Purple Cap IXUJ-XgY-538/07/2022, 12/05/2020,11/13/2020 Family History Medical HistoryRelationNameCommentsHeart diseaseFatherBreast cancerMotherKidney diseaseSisterRelationNameStatusCommentsFatherMotherSister Social History Tobacco UseTypesPacks/DayYears UsedDateSmoking Tobacco: FormerCigarettes Smokeless Tobacco: Never Tobacco Cessation:Counseling Given: Not Answered Alcohol UseStandard Drinks/WeekCommentsYes0 (1 standard drink = 0.6 oz pure alcohol)once in awhileCommentsUnknownSex and Gender InformationValueDate RecordedSex Assigned at BirthNot on fileLegal YsbFyqfvt40/25/2022 11:18 AM EST Gender IdentityNot on fileSexual OrientationNot on file Last Filed Vital Signs Vital SignReadingTime TakenCommentsBlood Gigwjxdf728/72002/14/2025 1:33 PM EDT Nnhkj1825 1:33 PM RNMOwtpwzqvyfd50.2 ??C (97.2 ??F)03/10/2020 6:02 AM EDTRespiratory Zmyi135603/10/2020 6:02 AM EDTOxygen Saturation--Inhaled Oxygen Concentration--Zxnayn578 kg (246 lb)02/14/2025 1:33 PM UYZCermzb485.6 cm (5' 4 ) 02/14/2025 1:33 PM EDTBody Mass Index42.23002/14/2025 1:33 PM EDT Plan of Treatment DateTypeDepartmentCare Team (Latest Contact Info)Kudbaestwne32/16/2026 1:40 PM EDTOffice Visit [facility] [address] [facility] [address] [place] [address] Sy Hanks S, DO [address] [facility] [address] [place] [address] Health MaintenanceDue DateLast DoneCommentsCT Ktekidojmbhc1966Colonoscopy 1966Colorectal Cancer Ikkwtqxvi1966FIT-DNA (Cologuard)1966FIT 1966HIV Xyrdqbduf1966Lipid Panel1965 8105Eynxpchwbarvy1966 Yearly Adult Shpopddf1966MMR Vaccines (1 of 1 - Standard series)1967 Hepatitis C Inzdspowo46/31/1984Hepatitis B Vaccines (1 of 3 - 19+ 3-dose series) 1985Pneumococcal Vaccine (1 of 2 - PCV)1985Cervical Cancer Screening 1987HPV/Hcbjty0208/31/1987Pap Smear08/31/19873977Qeczkebcc69/31/2006Zoster Vaccines (1 of 2)2016Diabetes Ggjafcxgb77/Influenza Vaccine (#1)5COVID-19 Vaccine (4 - season)501/03/2022, 12/05/2020, 1DTaP/Tdap/Td Vaccines (2 - Tdap)/08/2022HIB VaccinesAged OutNo longer eligible based on patient's age to complete this topic HPV VaccinesAged OutNo longer eligible based on patient's age to complete this topicHepatitis A VaccinesAged OutNo longer eligible based on patient's age to complete this topicIPV VaccinesAged OutNo longer eligible based on patient's age to complete this topicMeningococcal VaccineAged OutNo longer eligible based on patient's age to complete this topicRotavirus VaccinesAged OutNo longer eligible based on patient's age to complete this topic Medical Devices ImplantedTypeAreaManufacturerDevice IdentifierShelf Expiration DateModel / Serial / LotButton, Biceps 2.6 X 12mm Case [id number] Implanted:Qty: 1 on 10/26/2019 by Jack Becerra MDSharetribe [id number] / / [id number]:Converted from [facility]. Please see archived information for full log information.Ladora, [employer] Corkscrew Ft, 5.5 X 14.7mm, W/Two 1.3 S Case [id number] Implanted:Qty: 1 on 10/26/2019 by Jack Becerra MDSharetribe [id number] / / [id number]:Converted from [facility]. Please see archived information for full log information.Drill Pin, Button, Biceps, 3.2mm Case [id number] Implanted:Qty: 1 on 10/26/2019 by Jack Becerra MDImplantARTHREX [id number] / / Description:Converted from [facility]. Please see archived information for full log information. Procedures Procedure NamePriorityDate/TimeAssociated DiagnosisCommentsCOMPREHENSIVE METABOLIC TPZCUAaamnii79/13/2020 12:10 PM EST from Last 3 Months or Most Recently Relevant to Health Maintenance Results * Comprehensive Metabolic Panel (10/14/2019 12:10 PM EST)ComponentValueRef Range Test MethodAnalysis TimePerformed AtPathologist AnyfvwtohLcbjypy9382 - 99 mg/dLBAP[facility]IST [facility] CKLUmaeul619296 - 145 mmol/[facility] LABPotassium4.13.5 - 5.3 mmol/[facility] NGERzzvfqst49670 - 107 mmol/[facility] YBENzuqiizicqu8063 - 32 mmol/[facility] LABAnion Bnk4705 - 20 mmol/[facility] LABUrea Jvgcvagd428 - 23 mg/dLBAPTIST [facility] LABCreatinine0.900.50 - 1.05 mg/dLBAPTIST [facility] LABGLOMERULAR FILTRATION RATE-NON >60>60 mL/min/1.73m2 [facility] LABGLOMERULAR FILTRATION RATE->60>60 mL/min/1.11y9UUKVJXBAPTIST HEALTH [facility] LABComment: CALCULATIONS OF ESTIMATED GFR ARE PERFORMED USING THE MDRD STUDY EQUATION FOR THE IDMS-TRACEABLE CREATININE METHODS. CLIN CHEM 2007;53:766-72 Calcium9.08.6 - 10.3 mg/dLBAPTIST [facility] LABAlbumin4.33.4 - 5.0 g/dL [facility] LABAlkaline Bqnobzirrsg6186 - 110 U/[facility] LABTotal Protein7.16.4 - 8.2 g/dLBAPTIST [facility] DMJTHE503 - 39 U/[facility] LABTotal Bilirubin0.30.0 - 1.2 mg/dLBAPTIST [facility] LABALT (SGPT)117 - 45 U/[facility] LABComment: Patients treated with Sulfasalazine may generate falsely decreased results for ALT. Specimen (Source)Anatomical Location / LateralityCollection Method / Volume Collection TimeReceived Time10/14/2019 12:10 PM EST10/14/2019 1:02 PM EST Narrative Authorizing ProviderResult TypeResult StatusRobrandell DOMÍNGUEZ BLOOD ORDERABLESFinal ResultPerforming OrganizationAddressCity/State/ZIP CodePhone Number [facility] from Last 3 Months or Most Recently Relevant to Health Maintenance Insurance * Guarantor: Lucinda Trotter AAcluisunt TypeRelation to PatientDate of BirthPhone Billing AddressPersonal/HynugoTcps1965 [address] [id number] * Guarantor: Lucinda Trotter AAcluisunt TypeRelation to PatientDate of BirthPhone Billing AddressPersonal/OcyohhLlry1965 [address] [phone] Care Teams Team MemberRelationshipSpecialtyStart DateEnd Cesar Cespedes MD [address] [place] [address] [facility] - [facility]10/14/19
--- OUTSIDE RECORDS SUMMARY | 2025-06-29 12:32 | XMS_ITS | CCD ---
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 Name Role Phone ZANOTTI, JAZMIN Unavailable Unavailable [...] Unavailable Unavailable Hoy, Jasmina M Unavailable Unavailable CiaTheo vaca Unavailable Unavailable Homady, Lizz Unavailable Unavailable Hoy, Jasmina M Unavailable Unavailable Unavailable ORI ARCHIBALD Admitting Unavailable DR JASMINA CESPEDES Primary Care Unavailable ORI ARCHIBALD Attending Unavailable ORI ARCHIBALD Consulting Unavailable CORBY, DR FREEDMAN Admitting Unavailable CORBY, DR FREEDMAN Attending Unavailable CORBY, DR FREEDMAN Consulting Unavailable CORBY, DR FREEDMAN Primary Care Unavailable ALBARO JOHNSON Attending Unavailable CORBY, DR FREEDMAN Primary Care Unavailable ALBARO JOHNSON Admitting Unavailable Domenica Ramos Unavailable MD Jasmina Cespedes Primary Care Provider SOMMER Ramos Attending Provider Jasmina Cespedes MD Primary Care Provider [phone] Jasmina Cespedes MD Primary Care Provider [phone] SY PERSON Attending Unavailable JASMINA CESPEDES Primary Care Unavailable ALBARO OLMEDO Attending Unavailable JASMINA CESPEDES Primary Care Unavailable Jasmina Cespedes MD Primary Care Provider [phone] Jasmina Cespedes MD Attending Provider [phone] Jasmina Cespedes Attending Unavailable Jasmina Cespedes Primary Care Unavailable Jasmina Cespedes Admitting Unavailable Medications Current Medications MedicationDrug Class(es)DatesSig (Normalized)Sig (Original)amoxicillin 875 mg / clavulanate 125 mg oral tablet (1 source)Penicillin-class AntibacterialStart: 19-23-5540vmwr 1 tablet by mouth every twelve hoursAmoxicillin-Pot Clavulanate 875-125 MG 1 tablet Orally every 12 hrs for 10 day(s) Jul, Activeaspirin 81 mg delayed release oral tablet (16 sources)Platelet Aggregation Inhibitor, Nonsteroidal Anti-inflammatory Drug Start: 02-28-2021 End: 33-73-2922kobi 1 tablet by mouth once dailyaspirin 81 mg EC tablet Indications: Coronary artery disease involving [place] coronary artery of [place] heart without angina pectoris Take 1 tablet (81 mg) by mouth once daily. as directed 90 tablet 3 01/31/2025 01/31/2026 Activetake 1 tablet by mouth every twenty-four hoursAspirin 81 MG 1 tablet Orally Once a day Activeatorvastatin 80 mg oral tablet (15 sources)HMG-CoA Reductase InhibitorStart: 02-28-2021 End: 69-80-8654htnl 1 tablet by mouth once daily at bedtimeatorvastatin (Lipitor) 80 mg tablet Indications: Mixed hyperlipidemia Take 1 tablet (80 mg) by mouth once daily at bedtime. 90 tablet 3 02/14/2025 02/14/2026 Active benzonatate 200 mg oral capsule (1 source)Non-narcotic AntitussiveStart: 22-54-5674zyjs 1 capsule by mouth every eight hoursBenzonatate 200 MG 1 capsule Orally Three times a day Jul, Jufier06 hr buPROPion hydrochloride 150 mg extended release oral tablet (13 sources)AminoketoneStart: 52-54-0324flGUWTngy XL (Wellbutrin XL) 150 mg 24 hr tablet 1 tablet (150 mg) once daily. 01/07/2024 ActiveStart: 85-39-9447tltc 1 tablet by mouth once dailytake 1 tablet by mouth every twenty-four hours buPROPion HCl ER (SR) 150 MG 1 tablet in the morning Orally Once a day Active carvedilol 3.125 mg oral tablet (15 sources)alpha-Adrenergic Santos, beta-Adrenergic BlockerStart: 02-14-2025 End: 34-66-3164fceg 1 tablet by mouth twice dailycarvedilol (Coreg) 3.125 mg tablet Indications: Coronary artery disease involving [place] coronary artery of [place] heart without angina pectoris Take 1 tablet (3.125 mg) by mouth 2 times daily (morning and late afternoon). 60 tablet 11 02/14/2025 02/14/2026 Active Start: 01-31-2025 End: 21-93-5787hhhn 1 tablet by mouth once dailycarvedilol (Coreg) 6.25 mg tablet Indications: Coronary artery disease involving [place] coronary artery of [place] heart without angina pectoris Take 1 tablet (6.25 mg) by mouth once daily. 90 tablet 3 01/31/2025 02/14/2025 Discontinued (Dose adjustment)Start: 37-17-5015frflgbhgdo (Coreg) 6.25 mg tablet Indications: Coronary artery disease involving [place] coronary artery of [place] heart without angina pectoris TAKE 1 TABLET DAILY 30 tablet 11 02/11/2024 ActiveStart: 60-07-0222pbpx 1 tablet by mouth once dailyCarvedilol 6.25 MG Oral Tablet Take 1 tablet daily Quantity: 90 Refills: 3 Ordered: 10-Mar-2023 Sy Person DO Start : 10-Mar-2023 Active doc aware one dailyStart: 02-28-2021 End: 17-95-9524cdeu 1 tablet by mouth twice daily at mealtimefluticasone propionate 0.05 mg/actuat metered dose nasal spray (1 source)CorticosteroidStart: 53-10-8203gkmp 2 spray(s) nasal route once daily Fluticasone Propionate 50 MCG/ACT 2 sprays Nasally Once a day for 14 day(s) Jul, Activelisinopril 5 mg oral tablet (15 sources)Angiotensin Converting Enzyme InhibitorStart: 02-28-2021 End: 42-69-6060fkwj 1 tablet by mouth once dailylisinopril 5 mg tablet Indications: Coronary artery disease involving [place] coronary artery of [place] heart without angina pectoris Take 1 tablet (5 mg) by mouth once daily. 90 tablet 3 02/14/2025 02/14/2026 ActivemethylPREDNISolone 4 mg oral tablet (5 sources)CorticosteroidStart: 85-54-8351Inzuwy 4 MG as directed Orally As Directed for 6 days Jul, ActiveStart: 93-42-9203Nplnlz 4 MG as directed Orally As Directed for 6 days May, ActiveStart: 12-23-2019 methylPREDNISolone 4 MG Oral Tablet Therapy Pack Please dispense one dosepack. Take as directed Quantity: 1 Refills: 0 Jazmin Bush MD Start : 23-Dec-2019 Active 21 Tablet Packnitroglycerin 0.4 mg sublingual tablet (11 sources)Nitrate VasodilatorStart: 02-28-2021 End: 48-22-0419ixplpgnstehg 40 mg delayed release oral tablet (13 sources)Proton Pump InhibitorStart: 28-60-2341oiuf 1 tablet by mouth once dailyticagrelor 90 mg oral tablet (4 sources)Start: 72-20-9127nrjf 1 tablet by mouth twice daily Completed/Discontinued Medications MedicationDrug Class(es)DatesSig (Normalized)Sig (Original)acetaminophen 325 mg / HYDROcodone bitartrate 5 mg oral tablet (2 sources)Opioid AgonistStart: 42-18-9845UUVFRiqowrl-Acetaminophen 5-325 MG Oral Tablet Take 1 tablet PO every 6-8 hours as needed for pain Quantity: 20 Refills: 0 Lizz Davis PA-C Start : 09-Mar-2020 Activeamoxicillin 500 mg oral capsule (2 sources)Penicillin-class AntibacterialStart: 43-95-7978ajaz 1 capsule by mouth every eight hoursAmoxicillin 500 MG 1 capsule Orally three times a day for 10 day(s) December, Not-Takinghydrocortisone 10 mg/ml / neomycin 3.5 mg/ml / polymyxin b 15996 unt/ml otic suspension (2 sources)Aminoglycoside Antibacterial, Polymyxin-class Antibacterial, CorticosteroidStart: 24-13-8473Jzcfdycs-Polymyxin-HC 3.5-73160-5 3 drops right ear Three times a day for 7 days December, Not-Takingibuprofen 800 mg oral tablet (6 sources)Nonsteroidal Anti-inflammatory DrugStart: 02-26-2021 End: 07-31-8743ktxv 1 tablet by mouth four times daily as needed for pain Ibuprofen 800 mg tablet Discontinued 800 MG PO Four times daily as needed for Pain February 26, 2021 12:00am February 28, 2021 3:28pmMotrin TABS Refills: 0 Active Problems Active Problems Problem ClassificationProblemDateDocumented DateEpisodic/ChronicAcute myocardial infarction (2 sources)Acute myocardial infarction of anterior wall; Translations: [ST elevation (STEMI) myocardial infarction involving other coronary artery of anterior wall]74-33-0752HvdibgxAauwylp on above:Problem List clean-up per request of Phys. EHR CmteBlindness and vision defects (6 sources)Disorder of vision; Translations: [Problems with sight]Chronic Coronary atherosclerosis and other heart disease (14 sources)Coronary atherosclerosis; Translations: [Coronary atherosclerosis of [place] coronary artery]Onset: 759319-54-1256WrhoarrUugrxrevc of lipid metabolism (14 sources)Hyperlipidemia; Translations: [Other and unspecified hyperlipidemia] Onset: 096805-69-6940ZzxepgiL Codes: Cut/pierceb (1 source)Contact with sharp glass, initial encounter; Translations: [CONTACT W/SHARP GL[place] INITIAL ENC]Onset: 86-24-0359HqzbibssXdbexrnka hypertension (13 sources)Hypertensive disorder; Translations: [Unspecified essential hypertension]Onset: 364906-64-8710CwsxdsxFdknhcvosqjqg and screening for infectious disease (1 source)Encounter for immunization; Translations: [ENCOUNTER FOR IMMUNIZATION] Onset: 76-84-3513WxscxqnbBdzw wounds of extremities (4 sources)Laceration without foreign body of left thumb without damage to nail, initial encounter; Translations: [LAC NO FB LT THUMB NO DMG NAIL INIT]Onset: 77-27-0769VlzgigufGgbbi aftercare (1 source)group home (current) use of aspirin; Translations: [SNF CURRENT USE OF ASPIRIN]Onset: 73-45-3727CyzlkiojLzgxm aftercare (1 source)Other usp (current) drug therapy; Translations: [OTH SNF CURRENT DRUG THERAPY]Onset: 42-89-4631NfovubuaWfiou connective tissue disease (10 sources)H/O: arthritis; Translations: [Personal history of arthritis] EpisodicOther connective tissue disease (1 source)Achilles tendinitis, left legEpisodicOther connective tissue disease (1 source)Calcaneal spur, left footEpisodicOther ear and sense organ disorders (1 source)Unspecified acute noninfective otitis externa, right earEpisodicOther nervous system disorders (9 sources)Carpal tunnel syndrome; Translations: [Carpal tunnel syndrome]Chronic Other nervous system disorders (2 sources)Carpal tunnel syndrome of right wrist; Translations: [Carpal tunnel syndrome, right upper limb]Onset: 089214-22-3298ZuqkgxkTcofc nervous system disorders (10 sources)Hypesthesia; Translations: [Disturbance of skin sensation]Episodic Other nervous system disorders (10 sources)Numbness and tingling sensation of skin; Translations: [Disturbance of skin sensation]EpisodicOther non-traumatic joint disorders (1 source)Pain in left ankle and joints of left footEpisodicOther nutritional; endocrine; and metabolic disorders (8 sources)Obesity; Translations: [Obesity, unspecified]89-92-6245TjuhrocMwlwvcu on above:Problem List clean-up per request of Phys. EHR CmteOther nutritional; endocrine; and metabolic disorders (4 sources)Body mass index 40+ - severely obese; Translations: [Body mass index (BMI) 40.0-44.9, adult]Onset: 672898-20-4870AvrsrpvWppmg nutritional; endocrine; and metabolic disorders (2 sources)Body mass index (BMI) 40.0-44.9, adult; Translations: [Body mass index (BMI) 40.0-44.9, adult (Multi)]Onset: 43-14-9733IyijsfzMvnew screening for suspected conditions (not mental disorders or infectious disease) (1 source)Other abnormal and inconclusive findings on diagnostic imaging of breast; Translations: [Other abnormal and inconclusive findings on diagnostic imaging of breast]Onset: 13-49-8155MibnbpfcVbvkj upper respiratory infections (2 sources)Acute pharyngitis, unspecified; Translations: [Acute sinusitis, unspecified]EpisodicOtitis media and related conditions (1 source)Otitis media, unspecified, right earEpisodicResidual codes; unclassified (3 sources)Hypersomnia; Translations: [Hypersomnia, unspecified]Onset: 237158-45-7080NeioatnKrteznos codes; unclassified (2 sources)Hypersomnia, unspecified; Translations: [Hypersomnia, unspecified] Onset: 93-07-0903XtkviisYxoevfht codes; unclassified (10 sources)Symptom of head and neck region; Translations: [Other general symptoms]EpisodicResidual codes; unclassified (2 sources)Tobacco user; Translations: [Tobacco use]64-02-6357ItdsxnyhAcuupbj on above:Problem List clean-up per request of Phys. EHR CmteUnclassified (1 source)Pain in right shoulder / M25.511(ICD-9)Onset: 53-91-1869Bfdzzjfpsnen (2 sources)Complete rotatr-cuff tear/ruptr of r shoulder, not trauma / M75.121(ICD-9)Onset: 14-56-2031Otigbdgyjdaf (1 source)Complete rotatr-cuff tear/ruptr of left shoulder, not trauma / M75.122(ICD-9)Onset: 10-12-0187Fmqrzqzomynq (1 source)Impingement syndrome of left shoulder / M75.42(ICD-9)Onset: 01-12-2018 Unclassified (1 source)Pain in left shoulder / M25.512(ICD-9)Onset: 57-22-8314Kbyhvkresuny (2 sources)Impingement syndrome of right shoulder / M75.41(ICD-9)Onset: 99-24-1571Jnbqursnykmu (3 sources)CONTACT W/AND (SUSP) EXPOS COVID-19; Translations: [CONTACT W/AND (SUSP) EXPOS COVID-19]Onset: 03-20-2022 Past or Other Problems Problem ClassificationProblemDateDocumented DateEpisodic/ChronicBlindness and vision defects (4 sources)Disorder of vision; Translations: [History of Vision problems] EpisodicCoronary atherosclerosis and other heart disease (11 sources)Patient post percutaneous transluminal coronary angioplasty; Translations: [Percutaneous transluminal coronary angioplasty status]Onset: 153235-34-1329YqsbcuwhQhshi connective tissue disease (6 sources)Nontraumatic complete rupture of rotator cuff of right shoulder; Translations: [Complete rupture ofrotator cuff] Resolved: 86-55-9489KsumtmbaRbmgs connective tissue disease (4 sources)Nontraumatic complete rupture of rotator cuff of right shoulder; Translations: [Nontraumatic complete tear of right rotator cuff]Other lower respiratory disease (2 sources)Snoring; Translations: [Snoring]Onset: 742669-82-5634Qcwxmzgr Other lower respiratory disease (1 source)Snoring; Translations: [Snoring]Onset: 64-92-6847ZlnlccbdAyhqu nervous system disorders (4 sources)Deficient knowledge ; Translations: [Deficient knowledge of shoulder surgery]EpisodicOther nervous system disorders (8 sources)Postoperative pain ; Translations: [Other acute postoperative pain] Resolved: 06-90-1872GkphrnmjBnrhh non-traumatic joint disorders (10 sources)Shoulder joint pain; Translations: [Pain in joint, shoulder region] Resolved: 25-40-4845PljjylzwNmdqhxvo codes; unclassified (4 sources)History of tonsillectomy ; Translations: [History of History of tonsillectomy]EpisodicScreening and history of mental health and substance abuse codes (12 sources)Ex-smoker; Translations: [Personal history of tobacco use]Onset: 337973-55-1904UcidvqmtLxqseul and strains (10 sources)Sprain of shoulder rotator cuff; Translations: [Rotator cuff (capsule) sprain] Resolved: 90-36-9474WpnukcqyWgiqcljhlvfx (1 source)Complete rotatr-cuff tear/ruptr of r shoulder, not trauma; Translations: [Complete rotatr-cuff tear/ruptr of r shoulder, not trauma]Onset: 10-25-6418Nneakspcsdme (1 source)Impingement syndrome of right shoulder; Translations: [Impingement syndrome of right shoulder]Onset: 87-30-9334Mljgjtmljmai (6 sources)Healthcare knowledge finding; Translations: [Deficient knowledge of shoulder surgery] Resolved: 23-72-6124Duwzgnjuvsec (1 source)CONTACT W/AND (SUSP) EXPOS COVID-19; Translations: [CONTACT W/AND (SUSP) EXPOS COVID-19]Onset: 56-58-3179LIJFWGT: Highlighted row has not occurred!Residual codes; unclassified (18 sources)DiseaseEpisodic Results Test NameValueInterpretationReference RangeFacilityMM special view LT w/CADon 14-33-9293BM special view LT w/[facility] [address] [place] [address] Mammography Report Signed Patient: Lucinda Nunez MR#: [id number] 2 : 1965 Acct:[id number] Age/Sex: 59 / F Adm Date: 03/24/25 Loc: [place] Room: Type: [facility] Attending Dr: Jasmina Cespedes MD Ordering Provider: Jasmina Cespedes MD Date of Service: 03/24/25 Procedure(s): MM special view LT w/CAD Accession Number(s): ([id number]) MM/MM special view LT w/CAD: R92.8 Copies to: Jasmina Cespedes MD CLINICAL DATA: Callback asymmetry left breast. Left DIAGNOSTIC MAMMOGRAM - WITH TOMOSYNTHESIS AND CAD COMPARISON:Mammograms dating back to 2019 Tomosynthesis imaging was obtained using low-dose digital technique. This examination was reviewed with the aid of CAD. FINDINGS: The left breast is composed of scattered fibroglandular densities. No new areas of architectural distortion, worrisome masses or suspicious microcalcifications. Previously identified asymmetry compresses out on today's study suggestive of overlapping stroma. MM/MM special view LT w/CAD IMPRESSION: NO MAMMOGRAPHIC EVIDENCE OF MALIGNANCY. ROUTINE FOLLOW-UP IS RECOMMENDED IN ONE YEAR. RESULT CODE: 1 Negative DENSITY CODE: 2 (approximately 25-50% glandular) There are scattered areas of fibroglandular density. FOLLOW UP: 1YR The false-negative rate of mammography is approximately 10-percent. Management of a palpable abnormality must be based on clinical grounds. Patient was entered into a reminder system with a target due date for the next mammogram. Impression dictated by: Fabricio Rivas Jr., D.OBryanna 03/24/2025 10:52 AM Dictation Location: [facility] Dictated By: Fabricio Rivas Jr, DO 03/24/25 1050 Signed By: 03/24/[address] [place] [address] Physician GroupMammography reportOrdered By: Fabricio Rivas on 70-50-1350Oogtnzjckj imaging studyWHITE [facility] [address] [place] [address] [address] [place] [address] Mammography Report Signed Patient: Lucinda Nunez MR#: [id number] : 1965 Acct:[id number] Age/Sex: 59 / F Adm Date: 5 Loc: [place] Room: Type: [facility] Attending Dr: Jasmina Cespedes MD Ordering Provider: Jasmina Cespedes MD Date of Service: 03/24/25 Procedure(s): MM special view LT w/CAD Accession Number(s): ([id number]) MM/MM special view LT w/CAD: R92.8 Copies to: Jasmina Cespedes MD~ CLINICAL DATA: Callback asymmetry left breast. Left DIAGNOSTIC MAMMOGRAM - WITH TOMOSYNTHESIS AND CAD COMPARISON:Mammograms dating back to 2019 Tomosynthesis imaging was obtained using low-dose digital technique. This examination was reviewed with the aid of CAD. FINDINGS: The left breast is composed of scattered fibroglandular densities. No new areas of architectural distortion, worrisome masses or suspicious microcalcifications.Previously identified asymmetry compresses out on today's study suggestive of overlapping stroma. MM/MM special view LT w/CAD IMPRESSION: NO MAMMOGRAPHIC EVIDENCE OF MALIGNANCY. ROUTINE FOLLOW-UP IS RECOMMENDED IN ONE YEAR. RESULT CODE: 1 Negative DENSITY CODE: 2 (approximately 25-50% glandular) There are scattered areas of fibroglandular density. FOLLOW UP: 1YR The false-negative rate of mammography is approximately 10-percent. Management of a palpable abnormality must be based on clinical grounds. Patient was entered into a reminder system with a target due date for the next mammogram. Impression dictated by: Fabricio Rivas Jr., DBryannaOBryanna 03/24/2025 10:52 AM Dictation Location: [facility] Dictated By: Fabricio Rivas Jr, DO 03/24/25 1050 Signed By: 03/24/25 1052 [facility]*on 54-74-1560XZ ankle LT min 3V*[facility] [employer] Other XR ankle LT min 3V*[facility] [employer] Other XR ankle LT min 3V*[facility] [employer] Other XR ankle LT min 3V*[place] [address]Ad[place] [employer] Other XR ankle LT min 3V*XRay ReportSchenectady [employer] Other XR ankle LT min 3V*SignedSchenectady [employer] Other XR ankle LT min 3V*Patient: Lucinda Nunez MR#: [id number] [employer] Other XR ankle LT min 3V*[facility] [employer] Other XR ankle LT min 3V*: 1965 Acct:[id number] [place] [employer] Other XR ankle LT min 3V*Age/Sex: 57 / F ADM Date: 05/12/23 [place] [employer] Other XR ankle LT min 3V*Loc: XDUCLY Room: Type: [facility] [employer] Other XR ankle LT min 3V*Attending Dr: Domenica NOVOA [place] [employer] Other XR ankle LT min 3V*Copies to: SOMMER Sampson [employer] Other XR ankle LT min 3V*Ordering Provider: [facility] [employer] Other XR ankle LT min 3V*Date of Service: 05/12/23[place] [employer] Other XR ankle LT min 3V* XR/XR ankle LT min 3V*: LEFT ANKLE PAINSchenectady [employer] Other XR ankle LT min 3V*LEFT ANKLE - 3 viewsSchenectady [employer] Other XR ankle LT min 3V*CLINICAL DATA: Left ankle injury a week ago with posterior medial pain and tingling.[employer] Other XR ankle LT min 3V*COMPARISON: [facility] [employer] Other XR ankle LT min 3V*AP, lateral and oblique views were obtained. There is no evidence of fracture or dislocation. [facility] [employer] Other XR ankle LT min 3V*talar dome is intact. Enthesophyte is present at the distal Achilles tendon. There is mild diffuseSchenectady [employer] Other XR ankle LT min 3V*soft tissue swelling.[employer] Other XR ankle LT min 3V* XR/XR ankle LT min 3V*[employer] Other XR ankle LT min 3V*IMPRESSION:[employer] Other XR ankle LT min 3V*NO ACUTE BONY INJURY.[employer] Other XR ankle LT min 3V*Impression dictated by: Mamta Ramos M.D.05/12/2023 11:14 [facility] [employer] Other XR ankle LT min 3V*Dictation Location: [address] [employer] Other XR ankle LT min 3V*Transcribed By: DAYSI 05/12/23 [facility] [employer] Other XR ankle LT min 3V*Dictated By: Mamta Ramos MD 05/12/[address] [place] [address] [employer] Other XR ankle LT min 3V*Signed By:[employer] Other XR ankle LT min 3V*05/12/23 [facility] Center[facility] Other Quick Strepon 01-25-2023S. pyogenes Org specific cx Ql (Throat)NegativeSchenectady [employer] Other Quick StrepForm[employer] Other Office Visit (Cardiology)on 82-80-0191Ykrapt-up visit Diagnoses/Problems Assessed Coronary artery disease involving [place] coronary artery of [place] heart without angina pectoris (414.01) (I25.10) HLD [...] direction and in the presence of Dr. Sy Person, . Please bring all medicines, vitamins, and herbal supplements with you when you come to the office. Prescriptions will not be filled unless you are compliant with your follow up appointments or have a follow up appointment scheduled as per instruction of your physician. Refills should be requested at the time of your visit. Follow up in 1 year. Chief Complaint LUCINDA NUNEZ is being seen for a 6 [...] than upper respiratory complaints. She sustained anterior MO in January 2021 with primary revascularization of [...] Recorded: 02Apr2022 11:35AM Heart Rate68, L Radial Ghemcubv288, LUE, Sitting Wrfoqbaxp17, LUE, Sitting Height5 ft 4 in Wiahec291 lb BMI Ecnkachqpt19.48 kg/m2 BSA Calculated2.08 Tobacco Useb) No PHQ-2 #1. Over the last 2 weeks have you felt best (more content not included)... NormalUH TouchworksTobacco Screening.on 42-14-1959Yzhle depression screening assessmentNo-[facility] HospitalRam[facility] 250 DO Work Phone: Tobacco use status CPHSb) NoM-[facility] 250 DO Work Phone: [phone]-81 PCR (CVDTB)on 84-12-6157QNPV-CoV-2 (COVID- 19) RNA SHAYE+probe Ql (Unsp spec)Not detectedNormalNOT DETECTEDThe [facility] SouthwoodsComchildren[facility] hospital [facility] on above:Result Comment: This test is not yet approved or cleared by the [place] FDA. When there are no FDA-approved or cleared tests available, and other criteria are met, FDA can make tests available under an emergency access mechanism called an Emergency Use Authorization (EUA). The EUA for this test is supported by the Clinical Analyst of Health and Human Service's (HHS's) declaration [...] of clinical signs and symptoms consistent with SARS-CoV-2.Performed By: #### CVDTBH #### [facility] [address] [address] [address] Vanesa Jensen Visit (Cardiology)on 29-85-4998Qbbtzu-up visit Diagnoses/Problems Assessed Coronary artery disease involving [place] coronary artery of [place] heart without angina pectoris (414.01) (I25.10) S/P [...] signing my name below, I, Vy Nash LPN, Scribe, attest that this documentation has been prepared under the direction and in the presence of Dr. Sy Person DO. All medical record entries made by the Andres were at my direction and personally dictated by me. Jared reviewed the chart and agree that the [...] Follow up in 6 months Chief Complaint LUCINDA NUNEZ is being seen for a 4 month follow-up of. Patient is 55-year-old female who returns for 6-month follow-up and doing well. She had a anterior MO in January of this year underwent PCI [...] negative for complaint. Vitals Vital Signs Recorded: 31Jul2021 01:50PM Heart Rate66, L Brachial Artery Eqxisyip558, LUE, Sitting Zcrfuhgyw23, LUE, Sitting Height5 ft 4 in Xrhqek744 lb BMI Qgyilkirky70.31 kg/m2 BSA Calculated2.07 Tobacco Useb) No Fall Screeningc) Not medically indicated Signatures Electronically signed by : Sy Person DO; Jul 31 2021 4:32PM EST (Author) [facility] TouchworksTobacco Screening.on 17-70-1906Yuxw risk assessmentc) Not medically indicatedMP-Located Within [facility]-[place] [address] DO Work Phone: Tobacco use status CPHSb) NoMP-Located Within [facility] Heart- [place] 250 DO Work Phone: HCG,SERUM QUALITATIVEon 38-51-8204LQL,SERUM QUALITATIVENegativeNormalNegativeAnimas Surgical HospitalComment on above: Performed By: #### APTT #### [facility] [address] [place], [place] [address]Kkkhavs and Physical - Surgical Update < 30 dayson 03-10-2020 History and Physical - Surgical Update < 30 daysHistory & Physical Reviewed: /Lactating: Are You no [...] they contract COVID-19 what the risks are. Signatures/Attestation/Certification: Note Completion: Attending Provider Inpatient Certification StatementObservation patient/other outpatient visits Electronic Signatures: Theo Starks) (Signed 10-Mar-2020 07:17) Authored: History & Physical Reviewed, Consent, Signatures/Attestation/Certification Last Updated: 10-Mar-2020 07:17 by Theo Starks () References: 1. Data Referenced From History and Physical - Surgical Update < 30 days 10-Mar-2020 07:14NormHaxtun Hospital DistrictHistory and Physical - Surgical Update < 30 daysHistory & Physical Reviewed: /Lactating: Are You no [...] they contract COVID-19 what the risks are. Signatures/Attestation/Certification: Note Completion: Attending Provider Inpatient Certification StatementObservation patient/other outpatient visits Electronic Signatures: Theo Starks () (Signed 10-Mar-2020 07:14) Authored: History & Physical Reviewed, Consent, Signatures/Attestation/Certification Last Updated: 10-Mar-2020 07:14 by Theo Starks ()[facility] CenterPreop Checkliston 67-93-8993Drurl ChecklistPreop Checklist: Preop Checklist: Arrival Depw08-Ybt-0779 Arrival Time05:39 Procedure Typeper pt Carpal tunnel by Dr Starks to right hand Temperature C36.2 degrees C Temperature F97.1 degrees F Heart Rate68 beats per minute Respiratory Rate16 breath per minute Blood Pressure Hpamlwlp645 mm/Hg Blood Pressure Zyogbmjhx19 mm/Hg NPO Vktlmp33-Rsg-1784 21:30 NPO Commentsip of water with routine med @ 0445 this am ID Band Onyes Allergy Bandno known allergies Consent Signedyes H&P Completepending Anesthesia Assessment Completedpending EKG PerformedEKG done at bedside in [facility] Chest X-Ray Performednot ordered HCG Urine [...] Last Updated: 10-Mar-2020 06:08 by Franny Chao (LUCA)NormalAnimas Surgical HospitalCORONAVIRUS 2019, SCREEN ASYMPTOMATICon 34-81-4732FGMPPNBBSDY 2019,PCRNOT DETECTEDNormalNot DetectedMonmouth Medical Center [facility] ([facility])[3]Comment on above:Result Comment: . This assay is designed to detect SARS-CoV-2 based on replication of specific regions of the RNA from the SARS-CoV-2 virus. A Not Detected result does not preclude 2019-nCoV infection since the adequacy of sample collection and/or low viral burden may result in presence of viral nucleic acids below the clinical sensitivity of this test method. Fact sheet for providers: https://www.fda.gov/media/715310/download Fact sheet for patients: https://www.fda.gov/media/958210/download This test has received FDA Emergency Use Authorization [EUA] and has been verified by [facility] ([facility]). This test is only authorized for the duration of time that circumstances exist to justify the authorization of the emergency use of in vitro diagnostic tests for the detection of SARS-CoV-2 virus and/or diagnosis of COVID-19 infection under section 564(b)(1) of the Act, 21 U.S.C. 360bbb-3(b)(1), unless the authorization is terminated or revoked sooner. [facility] is certified under CLIA-88 as qualified to perform high complexity testing. Testing is performed in the [facility] laboratories located at [address] [place] [address].Performed By: #### COVSC #### [facility] [address] [place], [place] [address]AIXGEDEXHJW 2019, SCREEN ASYMPTOMATICon 80-82-6592Cmi Specimen SourceNasal, NasopharyngealNoMiddle Park Medical CenterComment on above:Performed By: #### COVSC #### [facility] [address] [place], [place] [address]Niwgivb 33-85-8985YA Shoulder 2 viewsInterpreted by: JAZMIN BUSH11/18/19 16:01MRN: [id number] Name: LUCINDA NUNEZ STUDY:SH OULDER, CMPLT, MIN 2 VIEWS; Right; 11/18/2019 3:08 pm INDICATION:pain. ORDERING CLINICIAN:JAZMIN BUSH FINDINGS:Two views right shoulder arch view and AP view ttpl-yjrnoijorpd-chqumiemdx glenohumeral joint with bicep button tenodesisfixation in good position and good alignment, no fracture nodislocation noted Electronically signed by: JAZMIN BUSH 11/18/19 16:01[facility] Work Phone: SHOULDER, CMPLT, MIN 2 VIEWSon [id number], CMPLT, MIN 2 VIEWSMRN: [id number] Patient Name: LUCINDA NUNEZ STUDY: SHOULDER, CMPLT, MIN 2 VIEWS; Right; 11/18/2019 3:08 pm INDICATION: pain. ACCESSION NUMBER(S): [id number] ORDERING CLINICIAN: JAZMIN BUSH FINDINGS: Two views right shoulder arch view and AP view well-aligned well-positioned glenohumeral joint with bicep button tenodesis fixation in good position and good alignment, no fracture no dislocation noted Electronically signed by: JAZMIN BUSH MDDelaware County Memorial Hospital Surgical Pathologyon [id number] Surgical PathologyName LUCINDA NUNEZ Pathologist: TONY LOVE MD Date of Procedure: 10/26/2019 Date Received: 10/26/2019 Date Reported 11/02/2019 Submitting Physician: JAZMIN BUSH M.D. Location: [facility] Copy To/Referring/Attending: ANAID BAEZA DO Other External # FINAL DIAGNOSIS A. RIGHT BICEPS, TENDON: --DENSE FIBROUS TISSUE AND FIBROCARTILAGE WITH DEGENERATIVE CHANGES Interpretation performed at: [facility] Department of Pathology [address] [place] [id number] Electronically Signed Out By TONY LOVE MD/ISABELLA By the signature on this report, [...] 0.5 cm. The fragment is serially sectioned. Pasteurizer sections are submitted in one cassette. TAS tas/10/26/2019NormalUJupiter Medical CenterHCG, Serum - Qualitativeon 10-26-2019 HCG ( test) QlNegativeNegative-[place] [facility] Work Phone: HCG,SERUM QUALITATIVEon 08-55-6983PZX,SERUM QUALITATIVENegativeNormalNegativeAnimas Surgical HospitalComment on above: Performed By: #### HCGS #### [address] [address]Ygpfduf and Physical - Surgical Update < 30 dayson 10-26-2019 History and Physical - Surgical Update < 30 daysHistory & Physical Reviewed: /Lactating: Are You no [...] physician responsible for performing the procedure: yes Signatures/Attestation/Certification: Note Completion: Attending Provider Inpatient Certification StatementObservation patient/other outpatient visits Electronic Signatures: Jazmin Bush) (Signed 26-Oct-2019 06:51) Authored: History & Physical Reviewed, Signatures/Attestation/Certification Last Updated: 26-Oct-2019 06:51 by Jazmin Bush)[facility] CenterOtheron 39-94-8808Haov LUCINDA NUNEZ Pathologist: TONY LOVE, MDDate of Procedure: 10/26/2019Date Received: 10/26/2019Date Reported 11/02/2019Submitting Physician: JAZMIN BUSH M.D.Location: [facility] Copy To/Referring/Attending:ANAID BAEZA, Other External # FINAL DIAGNOSISA. RIGHT BICEPS, TENDON: --DENSE FIBROUS TISSUE AND FIBROCARTILAGE WITH DEGENERATIVE CHANGESInterpretation performed at:[facility] HospitalDepartment of [address]qar[address] [place] [address]Phone: Electronically Signed Out By TONY LOVE MD/[facility] the signature on this report, the [...] x 0.5 cm. The fragment is serially sectioned.Pasteurizer sections are submittedin one cassette.Mary Ellen/10/26/2019-[place] [facility] Work Phone: Preop Checkliston 16-56-7533Vcrpk ChecklistPreop Checklist: Preop Checklist: Arrival Vljf01-Yla-3280 Arrival Time05:40 Procedure Typeshoulder rotator cuff repair per pt NPO Vmnqyc36-Qnu-2924 23:00 ID Band Onyes Allergy Bandno known allergies Consent Signedpending H&P Completepending Anesthesia Assessment Completedpending EKG Performedsee results tab Chest X-Ray Performedsee results tab HCG Urine Testblood drawn Chlorhexadine Bath Givennot applicable Nasal Antiseptic Appliednot applicable Hair Washednot applicable Soap and water bath with hair shampoo the night before surgerynot applicable Hat placed on infant prior to transportnot applicable SCD's Appliednot applicable [...] Last Updated: 26-Oct-2019 05:56 by Gaby Saldaña (RN)[facility] CenterHistory and Physicalon 17-54-7138Nmsluls and PhysicalHistory of Present Illness: Admission Reason: Right shoulder pain HPI: LUCINDA NUNEZ is a 54 year old Female [...] which will be performed to 19/01/2020 at [facility]. Past medical hx osteoarthritis and acid [...] has not been completed for this patient. Signatures/Attestation/Certification: Note Completion: Attending Provider Inpatient Certification StatementObservation patient/other outpatient visits Electronic Signatures: Jazmin Morrow (MARLEY) (Signed 25-Oct-2019 10:48) Authored: History of Present Illness, Allergies, Medications Prior to Admission, Objective, Signatures/Attestation/Certification Last Updated: 25-Oct-2019 10:48 by Jazmin Morrow (MARLEY)[facility] CenterPatient Profile - Preop v2on 13-42-6246Cbqenul Profile - Preop r7Wazopiq: Initial Info: How to be AddressedLori Spoken Language PreferredEnglish Source of Informationpatient Are you currently using the Personal Electronic Health Record or [employer] Instructions Givenappropriate clothing, center location, bring responsible adult as 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 driver (procedure may be cancelled if no dedicated intermodal truck driver), remove jewerly/piercings, bring glasses/contacts case Stated Reason for AdmissionRight rotator cuff surgery Primary Contact Name and Numberjocelyne Bermudez [phone] Patient Belongingsremains with patient Patient Belongings Remaining with Patientclothing Medications Brought to Hospitalno General Health: Weight in kg102 kilogram(s) Weight in bvc785 pound(s) Weight Methodstated Height in cm162.5 centimeter(s) Height in feet5 feet Height in inches4 inch(es) Height Methodstated BMI (kg/m2)38.627 square meter Patient or Family Member Reaction to Anesthesiano previous reaction; no previous family member reaction; left shoulder - metals Left shoulder rotator cuff repair with hardware Tonsillectomy Arthroscopy of right knee tubal ligation Blood Avoidance/Restrictionsnone Previous Transfusion Reactionno Health Mgmt: Symptoms/Conditions Managed at Homegastrointestinal; musculoskeletal; obstetric/gynecologic; peripheral/neurovascular; respiratory Are You Currently Breastfeedingno Gastrointestinal Symptoms/Conditionsreflux/heartburn Musculoskeletal Symptoms/Conditionsosteoarthritis Musculoskeletal Symptoms/Conditions Commenttorn right rotator cuff 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 Symptoms/Conditions CommentLMP - 6 months ago Peripheral Neurovascular Symptoms/Conditionsvaricosities Respiratory Symptoms/Conditionssleep disordered breathing; seasonal allergies Respiratory Symptoms/Conditions Commentsnores Barriers to Managing Healthnone Are You no Relationship/Environ: Resource/Environmental Concernsnone Services Anticipated at Transitionnone Lives Withspouse Living Arrangementshouse Anticipated Transition Tohome Substance: Current or Former Substance Use never: [...] Learning Preferencesskill demonstration Cultural Considerationsnone Developmental Considerationsnone Gnosticist Considerationsnone Other learner availableno Falls RiskPatient location auto qualifies him/her for HIGH RISK. Are there any cultural, spiritual, hinduism practices/values/needs that are important for us to knowno Pain Scalenumerical 0-10 Pain Scale Educationteaching provided Current Pain Level3 = Mild Acceptable Pain Level7 = Severe Expression of Pain (nonverbal)none Lifestyle Changes/Adaptations in Response to Painno change Barriers to Reporting Painnone Chronic Painno Information Review: Allergies, Home Meds and Significant Events have been Reviewed and Verified with Patient/Familyno Electronic Signatures: Gaby Saldaña (RN) (Signed 26-Oct-2019 05:59) Authored: Profile, Additional Information Sangita Alfaro) (Signed 22-Oct-2019 15:51) Authored: Profile Last Updated: 26-Oct-2019 05:59 by Gaby Saldaña (RN)[facility] CenterAPTTon 61-83-1760hXHC Rebecca ([place]) [Time]37 bNapvtm37 - 38Animas Surgical HospitalComment on above:Result Comment: THE APTT IS NO LONGER USED FOR MONITORING UNFRACTIONATED HEPARIN THERAPY. FOR MONITORING HEPARIN THERAPY, USE THE HEPARIN ASSAY.Performed By: #### APTT #### [address] [address]YRN AND DIFFERENTIALon 10-14-2019% AUTOMATED IMMATURE GRAN0.0 % Normal0.0 - 0.9Animas Surgical HospitalComment on above:Result Comment: Percent differential counts (%) should be interpreted in the context of the absolute cell counts (cells/L).Performed By: #### CBCDF #### [address] [address]Ujaszcghz (Bld) [#/Vol]0.05 10*3/uLNormal0.00 - 0.10Animas Surgical HospitalComment on above:Performed By: #### CBCDF #### [address] [address]Qcawzlobj/100 WBC (Bld)0.9 %Normal0.0 - 2.0Animas Surgical HospitalComment on above:Performed By: #### CBCDF #### [address] [address]Tjszfpxjssc (Bld) [#/Vol]0.13 10*3/uLNormal0.00 - 0.70Animas Surgical HospitalComment on above:Performed By: #### CBCDF #### [address] [address]Cdwdrakyvst/100 WBC (Bld)2.3 %Normal0.0 - 6.0Animas Surgical HospitalComment on above:Performed By: #### CBCDF #### [address] [address]Orwwquxffwt distribution width (RBC) [Ratio]12.7 %Khomgo37.5 - 14.5Animas Surgical HospitalComment on above:Performed By: #### CBCDF #### [address] [address]Dopknmrlqf (Bld) [Volume fraction]46.7 %High36.0 - 46.0[facility] Medical CenterComment on above:Performed By: #### CBCDF #### [address] [address]Pvaerxbidk (Bld) [Mass/Vol]15.3 g/fDCexcri66.0 - 16.0[facility] CenterComment on above:Performed By: #### CBCDF #### [address] [address]Etgaequqazo (Bld) [#/Vol]2.34 10*3/uLNormal1.20 - 4.80[facility] CenterComment on above:Performed By: #### CBCDF #### [address] [address]Uxncrkaefds/100 WBC (Bld)41.5 %Ktuhgx96.0 - 44.0[facility] CenterComment on above:Performed By: #### CBCDF #### [address] [address]KROD (RBC) [Mass/Vol]32.8 g/oAKoyhsx77.0 - 36.0Animas Surgical HospitalComment on above:Performed By: #### CBCDF #### [address] [address]EXC (RBC) [Entitic vol]94 mHNzvfgg67 - 100Animas Surgical HospitalComment on above:Performed By: #### CBCDF #### [address] [address]Ybigcwnwp (Bld) [#/Vol]0.39 10*3/uLNormal0.10 - 1.00[facility] CenterComment on above:Performed By: #### CBCDF #### [address] [address]Gajvyualc/100 WBC (Bld)6.9 %Normal2.0 - 10.0Animas Surgical HospitalComment on above:Performed By: #### CBCDF #### [address] [address]Wiuwwexljzq (Bld) [#/Vol]2.73 10*3/uLNormal1.20 - 7.70Animas Surgical HospitalComment on above:Performed By: #### CBCDF #### [address] [address]Cxackwmodml/100 WBC (Bld)48.4 %Baxggh34.0 - 80.0[facility] CenterComment on above:Performed By: #### CBCDF #### [address] [address]Mcqwlxfwz (Bld) [#/Vol]262 10*3/yRIsdyox615 - 450[facility] CenterComment on above:Performed By: #### CBCDF #### [address] [address]RCK (Bld) [#/Vol]4.99 x10E12/LNormal4.00 - 5.20Animas Surgical HospitalComment on above:Performed By: #### CBCDF #### [address] [address]YZE (Bld) [#/Vol]5.6 10*3/uLNormal4.4 - 11.3Animas Surgical HospitalComment on above:Performed By: #### CBCDF #### [address] [address]MHAXEVYDTJBSN PANELon 55-50-7588Kwktcdq [Mass/Vol]4.3 g/dLNormal 3.4 - 5.0Animas Surgical HospitalComment on above:Performed By: #### CMP #### [address] [address]AVA [Catalytic activity/Vol]90 U/NCxljuv20 - 110Animas Surgical HospitalComment on above:Performed By: #### CMP #### [address] [address]ODV [Catalytic activity/Vol]11 U/LNormal7 - 45Animas Surgical HospitalComment on above:Result Comment: Patients treated with Sulfasalazine may generate falsely decreased results for ALT.Performed By: #### CMP #### [address] [address]Hjfkp gap [Moles/Vol]12 mmol/WGekeyw71 - 20Animas Surgical HospitalComment on above:Performed By: #### CMP #### [address] [address]ITR [Catalytic activity/Vol]12 U/LNormal9 - 39Animas Surgical HospitalComment on above:Performed By: #### CMP #### [address] [address]Xrtvyswmg [Mass/Vol]0.3 mg/dLNormal0.0 - 1.2Animas Surgical HospitalComment on above:Performed By: #### CMP #### [address] [address]Ptdpuhc [Mass/Vol]9.0 mg/dLNormal8.6 - 10.3Animas Surgical HospitalComment on above:Performed By: #### CMP #### [address] [address]Ipjvamdn [Moles/Vol]106 mmol/RHpohfq27 - 107Animas Surgical HospitalComment on above:Performed By: #### CMP #### [address] [address]Wsdpeefdga [Mass/Vol]0.90 mg/dLNormal0.50 - 1.05[facility] CenterComment on above:Performed By: #### CMP #### [address] [address]VIX-XYIYRVL AM.>60Normal>60Animas Surgical HospitalComment on above:Result Comment: CALCULATIONS OF ESTIMATED GFR ARE PERFORMED USING THE MDRD STUDY EQUATION FOR THE IDMS-TRACEABLE CREATININE METHODS. CLIN CHEM 2007;53:766-72Performed By: #### CMP #### [address] [address]AGH-TFT AM.>60Normal>60[facility] CenterComment on above:Performed By: #### CMP #### [address] [address]Hkqvbef [Mass/Vol]76 mg/vZIhjxfj58 - 99[facility] Comment on above:Performed By: #### CMP #### [address] [address]QKA1 (Bld) [Moles/Vol]28 mmol/RQuqrpq52 - 32Animas Surgical HospitalComment on above:Performed By: #### CMP #### [address] [address]Blczddapb [Moles/Vol]4.1 mmol/LNormal3.5 - 5.3Animas Surgical HospitalComment on above:Performed By: #### CMP #### [address] [address]Lxzhleh [Mass/Vol]7.1 g/dLNormal6.4 - 8.2Animas Surgical HospitalComment on above:Performed By: #### CMP #### [address] [address]Vzpqat [Moles/Vol]142 mmol/YPrtquq939 - 145Animas Surgical HospitalComment on above:Performed By: #### CMP #### [address] [address]Ziaw nitrogen [Mass/Vol]13 mg/dLNormal6 - 23Animas Surgical HospitalComment on above:Performed By: #### CMP #### [address] [address]HP/INRon 89-85-2973PQG Coag (PPP) [Relative time]1.0 {INR}Normal 0.9 - 1.1Animas Surgical HospitalComment on above:Performed By: #### PTINR #### [address] [address]JB Coag (PPP) [Time]10.7 sNormal9.7 - 12.7Animas Surgical HospitalComment on above:Performed By: #### PTINR #### [address] [address]IQ MICROSCOPICon 28-12-9970OFHXBOAJ2+ /HPFAbnoSky Ridge Medical CenterComment on above:Performed By: #### UAMIC #### [address] [address]FHCIO1+ /LPFNormHaxtun Hospital DistrictComment on above: Performed By: #### UAMIC #### [address] [address]FON0 /HPFNormal0-5Animas Surgical HospitalComment on above: Performed By: #### UAMIC #### [address] [address]NVEHZEEM EPITH. CELLS11 /[facility] HOSPITALNoSky Ridge Medical Center Comment on above:Performed By: #### UAMIC #### [address] [address]TOB7 /HPFNormal0-5Animas Surgical HospitalComment on above: Performed By: #### UAMIC #### [address] [address]IPPRROICOIan 55-92-3969Ykvodfxzvj (U)CLEARNormalCLEARAnimas Surgical HospitalComment on above:Performed By: #### UA #### [address] [address]Uriaxwavh (U) [Mass/Vol]NegativeNormalNEGATIVEAnimas Surgical HospitalComment on above:Performed By: #### UA #### [address] [address]NRFSJHarbgeehMbtmznPCNCTNVOVJ [facility] Medical CenterComment on above:Performed By: #### UA #### [address] [address]Dswse (U)YELLOWNormalSTRAW,YELLOWAnimas Surgical HospitalComment on above:Performed By: #### UA #### [address] [address]Bxutgah [Mass/Vol]NegativeNormalNEGATIVEAnimas Surgical Hospital Comment on above:Performed By: #### UA #### [address] [address]Rcojbwh Ql (U)5 (TRACE)AbnormalNEGATIVEAnimas Surgical Hospital Comment on above:Performed By: #### UA #### [address] [address]Etxdavdxi esterase Test strip Ql (U)MODERATE (2+)Abnormal NEGATIVEAnimas Surgical HospitalComment on above:Performed By: #### UA #### [address] [address]Qslseqv Ql (U)NegativeNormalNEGATIVEAnimas Surgical Hospital Comment on above:Performed By: #### UA #### [address] [address]cL (Bld)5.6Zkjhrd3.0 - 8.0Animas Surgical HospitalComment on above:Performed By: #### UA #### [address] [address]Bliasxn (U) [Mass/Vol]NegativeNormalNEGATIVEAnimas Surgical HospitalComment on above:Performed By: #### UA #### [address] [address]Fjhqmmgq gravity (U) [Rel density]1.962Bzqaro4.005 - 1.035Animas Surgical HospitalComment on above:Performed By: #### UA #### [address] [address]Uodzopksqyry Qn (U)2.0 mg/dLHigh0.0 - 1.9Animas Surgical HospitalComment on above:Result Comment: Due to a manufacturing issue, low positive urobilinogen results may be falsely positive. Correlate with urine bilirubin and additional clinical/laboratory findings to assess the risk of hemolytic anemia or liver disease. If clinically indicated, repeat testing with an alternate method is available by contacting the laboratory within 24 hours. . Some pigments and medications may cause a false positive urobilinogen.Performed By: #### UA #### [address] [address] Vital Signs Date TimeVital SignValuePerforming JbmqgwbraOudkxooz77-90-5425 13:33-0400Body gqersz767.6 cmAlbaro Olmedo MANAGER FAMILY-PAINT CREW SUPERVISOR Work Phone: [phone] [place], [place] 8535006-16-2025 13:33-0400 Body mass index (BMI) [Ratio]42.23 kg/n5OoqwuAlbaro Olmedo MANAGER FAMILY-PAINT CREW SUPERVISOR Work Phone: [phone]06-16-2025 13:33-0400 Body roskdf400.58 kgAdelsotwan Honorio MANAGER FAMILY-PAINT CREW SUPERVISOR Work Phone: [phone]06-16-2025 13:33-0400 Diastolic blood xecxfjov98 mm[Hg]Albarotwan Olmedo MANAGER FAMILY-PAINT CREW SUPERVISOR Work Phone: [phone]06-16-2025 13:33-0400 Heart rate75 /minDalyssa Olmedo MANAGER FAMILY-PAINT CREW SUPERVISOR Work Phone: [phone]06-16-2025 13:33-0400 Systolic blood ejbeuwcr096 mm[Hg]Albaro Olmedo MANAGER FAMILY-PAINT CREW SUPERVISOR Work Phone: [phone]08-13-2024 15:50-0400 Body aqokcr363.6 cmSy Person DO Work Phone: [phone] [place], [place] 8535008-13-2024 15:50-0400 Body mass index (BMI) [Ratio]43.26 kg/f9KynwsmsSy Person DO Work Phone: [phone] [place], [place] 8535008-13-2024 15:50-0400 Body iprhtr939.31 kgSy Person DO Work Phone: [phone]08-13-2024 15:50-0400 Diastolic blood oipyatio40 mm[Hg]Sy Person DO Work Phone: [phone] [place], [place] 8535008-13-2024 15:50-0400 Heart rate60 /minSy Person DO Work Phone: [facility]08-13-2024 15:50-0400 Systolic blood wsehmilq405 mm[Hg]Sy Person DO Work Phone: [facility]11-26-2023 10:55-0500 Body oszfty368.56 cmPamelhakan Ramos Other [employer] Other 11-26-2023 10:55-0500Body mass index (BMI) [Ratio] 41.74 kg/a9Ultpqpbritta Ramos Other [employer] Other 11-26-2023 10:55-0500Body rzozgobmtrd87.6 [degF]Domenica Ramos Other [employer] Other 11-26-2023 10:55-0500Body rydrro094.32 kgYinmarysolhakan Rachel Other [employer] Other 11-26-2023 10:55-0500Diastolic blood nguuhryk94 mm[Hg] Domenica Ramos Other [employer] Other 11-26-2023 10:55-0500Respiratory rate18 /minDomenica Ramos Other [employer] Other 11-26-2023 10:55-7965LbU2% (BldA) [Mass fraction]95 % Domenica Ramos Other [employer] Other 11-26-2023 10:55-0500Systolic blood dthuvrir910 mm[Hg] Domenica Ramos Other [employer] Other 09-11-2023 10:10-0400Body zeiuxp177.56 cmPjulieta Ramos Other [employer] Other 09-11-2023 10:10-0400Body mass index (BMI) [Ratio] 41.71 kg/e7Yvmgqo Rachel Other [employer] Other 09-11-2023 10:10-0400Body yozdpxqsozj38.9 [degF]Domenica Ramos Other [employer] Other 09-11-2023 10:10-0400Body usdwar569.22 kgDomenica Ramos Other [employer] Other 09-11-2023 10:10-0400Diastolic blood mm[Hg] Domenica Rachel Other [employer] Other 09-11-2023 10:10-0400Respiratory rate18 /minDomenica Ramos Other [employer] Other 09-11-2023 10:10-2835EaA9% (BldA) [Mass fraction]97 % Domenica Gaonamond Other [employer] Other 09-11-2023 10:10-0400Systolic blood bluuruph060 mm[Hg] Domenica Rachel Other [employer] Other 05-27-2023 10:05-0400Body adkaqh953.56 Charlene Rachel Other [employer] Other 05-27-2023 10:05-0400Body mass index (BMI) [Ratio] 41.28 kg/b2XyaspmDomenica Ramos Other [employer] Other 05-27-2023 10:05-0400Body jbikqkczgvz11.5 [degF]Domenica Gaonamond Other [facility] Other 05-27-2023 10:05-0400Body ttxytb459.09 kgDomenica Ramos Other [employer] Other 05-27-2023 10:05-0400Diastolic blood tilisjys36 mm[Hg] Domenica Gaonamond Other [employer] Other 05-27-2023 10:05-0400Respiratory rate18 /minDomenica Ramos Other [place] [employer] Other 05-27-2023 10:05-0857TxL0% (BldA) [Mass fraction]95 % Domenica Ramos Other [facility] Other 05-27-2023 10:05-0400Systolic blood bgxixyce800 mm[Hg] Domenica Gaonamond Other [facility] [employer] Other 08-02-2022 11:35-0400Body xzqkzu973.56 cmDouglas M Hoy Work Phone: [phone]-Iromg [place] [employer] 250 DO Work Phone: 1(198) 649-108308-02-2022 11:35-0400Body mass index (BMI) [Ratio] 39.48 kg/y0Doleqov M Hoy Work Phone: [phone]-Oaegc [place] [employer] 250 DO Work Phone: 1([phone]) 413-566508-02-2022 11:35-0400Body surface area Derived from formula2.08 n6Ngqltma M Hoy Work Phone: [phone]-Bgxor [place] [facility] 250 DO Work Phone: 1(207)[phone]-3494 11:35-0400Body usxerj154.33 kgDouglas M Hoy Work Phone: [phone]-Sdhvz [place] [facility] 250 DO Work Phone: [phone] 11:35-0400Diastolic blood dlzxofcz73 mm[Hg] Jasmina M Hoy Work Phone: [phone]-Wubqw [place] [facility] DO Work Phone: 1(504)[phone]-6505 11:35-0400Heart rate68 /minDouglas M Hoy Work Phone: [phone]-Rugqv [place] [facility] 250 DO Work Phone: 1(901)[phone]-6672 11:35-0400Systolic blood usvhxlgh132 mm[Hg] Jasmina M Hoy Work Phone: [phone]-Rakhr [place] [facility] 250 DO Work Phone: 1(325)[phone]-7147 13:50-0500Body .56 cmDouglas M Hoy Work Phone: [phone]-Lnxaq [place] [facility] 250 DO Work Phone: [phone] 13:50-0500Body mass index (BMI) [Ratio] 39.31 kg/l6Jikhwuq M Hoy Work Phone: [phone]-Iamcj [place] [facility] 250 DO Work Phone: 1([phone])[phone]-9196 13:50-0500Body surface area Derived from formula2.07 c2Xeiypwr M Hoy Work Phone: [phone]-Luuvj [place] [facility] 250 DO Work Phone: 1(536)[phone]-6719 13:50-0500Body goaoav451.87 kgDouglas M Hoy Work Phone: [phone]-Mippl [place] [facility] 250 DO Work Phone: 1(107) 555-856711-30-2021 13:50-0500Diastolic blood hkwpyczf66 mm[Hg] Jasmina Vee Hoy Work Phone: [phone]-Gztdj [place] [facility] DO Work Phone: 1(297) [phone] 13:50-0500Heart rate66 /minDouglas Nanda Hoy Work Phone: [phone]-Gbwlh [place] [facility] DO Work Phone: 1(108) 544-559011-30-2021 13:50-0500Systolic blood ahcbgfps905 mm[Hg] Jasmina Vee Hoy Work Phone: [phone]-Vrxbz [place] [facility] 250 DO Work Phone: 1(839) 189-189803-19-2020 17:01-0400BMI (Body Mass Index)38.62 kg/m2 [facility] Work Phone: 1(729) 367-416203-19-2020 17:01-0400Body ghbuly024.06 kgRobert [facility] Work Phone: 1([phone] 17:01-0400BSA (Body Surface Area)2.06 m2 [facility] Work Phone: 1(976) 123-967803-19-2020 17:01-7117Mguqqy261.56 cmRobert [facility] Work Phone: Encounters Encounter DateEncounter TypeCare ProviderFacilityStart: 03-24-2025 End: 99-62-3233Caenwrn encounter procedureDoroman Vee [facility] Work Phone: Start: 03-24-2025 End: 89-44-2313vnkfzgxqnxFlqxcrz M Hoy MD Work Phone: [facility] Work Phone: Start: 02-14-2025 End: 16-06-1279Owwezo outpatient visit 25 minutesDonna K Freehold MANAGER FAMILY-PAINT CREW SUPERVISOR Work Phone: [facility] HospitalComment on above:Hypersomnolence (Primary Dx); Mixed hyperlipidemia; Coronary artery disease involving [place] coronary artery of [place] heart without angina pectoris; Hypertension, unspecified type; BMI 40.0-44.9, adult (Multi)Start: 02-14-2025 End: 05-68-1131kssevmsszeZAEJJ [facility] AmbulatoryStart: 04-13-2024 End: 35-27-2648Pkzspo outpatient visit 25 minutesVtlogan Elvia Callaway DO Work Phone: [facility] HospitalComment on above:Coronary artery disease involving [place] coronary artery of [place] heart without angina pectoris; Hyperlipidemia, unspecified hyperlipidemia type; Hypertension, unspecified type; S/P PTCA (percutaneous transluminal coronary angioplasty); Snoring; Former smoker; BMI 40.0-44.9, adult (Multi)Start: 04-13-2024 End: 28-16-5428pqppehjxguLVLBZUQDetroit Receiving Hospital AmbulatoryStart: 07-27-2023 End: 02-76-7035ixsqthlkbmYyxnwo Rachel Other [place] [employer] Other Start: 45-44-5729Kafkpd outpatient visit 15 minutes Domenica DymondFPG Urgent Care ClydeStart: 21-54-3307Oznfaf outpatient visit 15 minutesPamela DymondFPG Urgent Care ClydeStart: 05-12-2023 End: 44-75-5922fdwqryrhylYX Jasmina Cespedes Work Phone: [facility] Work Phone: Start: 05-12-2023 End: 11-71-6932Gyiuils encounter procedure Jasmina Corby Work Phone: [facility] Work Phone: Start: 31-55-3811Cf RenewalDoroman Cespedes Work Phone: [phone]-QxtipMercy Hospital-[place] 250 DO Work Phone: Start: 01-25-2023 End: 93-51-5281ntydmgfoflVxdsiy Dymond Other [place] [employer] Other Start: 65-78-9909Resclp outpatient new 20 minutes Domenica RamosFPG Urgent Care ClydeStart: 08-12-2022 End: 75-61-9943vajulincqlBJBHLD RODRIGUEZFacility:R0Lhhws: 07-35-9999Eqzsun outpatient visit 25 minutesDouglas M Hoy Work Phone: [phone]-Flqca [place] [facility] DO Work Phone: Start: 03-18-2022 End: 08-58-8929udnusawizvCO JASMINA HOYFacility:Q5Alxpo: 11-51-0276Cq Renewal Jasmina M Hoy Work Phone: [phone]-Qgoqt [place] [facility] 250 DO Work Phone: Start: 28-12-3657qbibsqqhbaBGFBT SIRISHA-SMITHFacility:H1 Start: 07-98-1559Yarhkc outpatient visit 15 minutesDouglas M Hoy Work Phone: [phone]-Nkcmr [place] [facility] DO Work Phone: Start: 91-13-8366Ajhggjk encounter procedureRobMcPherson [facility]Former[facility] [place] Work Phone: Start: 28-81-1811Ocmbnol encounter procedureRobMcPherson Hospital [facility]Former[facility] [place] Work Phone: Start: 38-77-4155Xmhyoui encounter procedureRobert [facility] [place] Work Phone: Start: 24-62-5494Wuspatv encounter procedureRobIndiana University Health Ar[facility] HospitalsFormerly [facility] [place] Work Phone: Start: 74-16-3171Lkqmnrg encounter procedureRobMcPherson Hospital [facility]Former[facility] [place] Work Phone: Start: 98-72-6001Lhbfjxz encounter procedureRobert BellaMaryP-[facility] Work Phone: Start: 73-97-0272Catqcak encounter procedureRobert RejiWallowa [facility] Work Phone: Start: 24-82-3834Bsxpuya encounter procedureRobert RejiJackson [facility] Work Phone: Start: 90-97-5130Zvoshsp encounter procedureROBERT ZANOTTIFacility:8Start: 31-55-1521Upmbacb encounter procedureROBERT BELLANOTTI Facility:8Start: 96-85-5894Sypatjz encounter procedureROBERT ZANOTTIFacility:8 Start: 69-84-1384Tdcgfdu encounter procedureROBERT ZANOTTIFacility:8Start: 24-47-0990Esknhdn encounter procedureROBERT ZANOTTIFacility:8Start: 10-27-2017 Patient encounter procedureROBERT ZANOTTIFacility:8 Procedures DateProcedureProcedure DetailPerforming ClinicianStart: 63-88-0141Clnnxiouefu of left breastDougdionisio Corby LAY Work Phone: [phone]: 12-24-1488H-ray of left ankleMD Jasmina Michaudprashant Work Phone: Start: 01-52-9617EVQ and Nerve ConductionRobert ZanottiArthroscopy of kneeDouglas M Corby Work Phone: [phone] catheterizationDouglas M Hoy Work Phone: Chondrectomy of semilunar cartilage of kneeDouglas M Hoy Work Phone: History of tonsillectomyHistory of tonsillectomy Jasmina M Corby Work Phone: Percutaneous transluminal coronary angioplastyDouglas M Jaswanty Work Phone: [phone] of musculotendinous cuff of shoulderDouglas M Hoy Work Phone: Repair of shoulderDouglas M Hoy Work Phone: Plan of Treatment DateCare ActivityDetailAuthorStart: 35-60-9303SZuD/Tdap/Td Vaccines (2 - Tdap) DTaP/Tdap/Td Vaccines (2 - Tdap)[facility]: 02-14-2026 End: 69-43-1523Mzloznv encounter tznboxrwj94/16/2026 1:40 PM EDT Office Visit [facility] [address] [place] [address] Sy Person, [address] [place] [address] [facility]: 58-42-0742Znvstfbew vaccination Influenza Vaccine (Season Ended)[facility]: 02-14-2025 End: 41-65-9806Fbmwrek aminotransferase [Enzymatic activity/volume] in Serum or Plasma by With P-5'-PAlanine Aminotransferase Lab Routine Mixed hyperlipidemia Coronary artery disease involving [place] coronary artery of [place] heart without angina pectoris Expected: 02/14/2025 (Approximate), Expires:02/14/2026[facility] Service Area Work Phone: Comment on above:Expected: 02/14/2025 (Approximate), Expires: 02/14/2026Start: 02-14-2025 End: 77-14-2509Jtqtwbshl aminotransferase [Enzymatic activity/volume] in Serum or Plasma by With P-5'-PAspartate Aminotransferase Lab Routine Mixed hyperlipidemia Coronary artery disease involving [place] coronary artery of [place] heart without angina pectoris Expected: 02/14/2025 (Approximate), Expires : 02/14/2026[facility] Work Phone: Comment on above:Expected: 02/14/2025 (Approximate), Expires: 02/14/2026Start: 02-14-2025 End: 84-07-7677Teewi metabolic 2000 panel - Serum or PlasmaBasic Metabolic Panel Lab Routine Mixed hyperlipidemia Coronary artery disease involving [place] diane nary artery of [place] heart without angina pectoris Expected: 02/14/2025 (Approximate), Expires: 02/14/2026[facility] Work Phone: Comment on above:Expected: 02/14/2025 (Approximate), Expires: 02/14/2026Start: 02-14-2025 End: 29-95-8117Bdngdnqy kinase [Enzymatic activity/volume] in Serum or Plasma Creatine Kinase Lab Routine Mixed hyperlipidemia Coronary artery disease involving [place] coronary artery of [place] heart without angina pectoris Expected: 02/14/2025 (Approximate), Expires: 02/14/2026[facility] Work Phone: Comment on above:Expected: 02/14/2025 (Approximate), Expires: 02/14/2026Start: 62-99-8187IZYBZ-19 Vaccine ( season)COVID- 19 Vaccine ()[facility]: 21-46-7711Yvvswetyw vaccinationInfluenza Vaccine (#1)[facility]: 04-13-2024 End: 92-57-0115Atzcaqo aminotransferase [Enzymatic activity/volume] in Serum or Plasma by With P-5'-PAlanine Aminotransferase Lab Routine Hyperlipidemia, unspecified hyperlipidemia type Expected: 04/13/2024 (Approximate), Expires: 04/13/2025[facility] Service Area Work Phone: Comment on above:Expected: 04/13/2024 (Approximate), Expires: 04/13/2025Start: 04-13-2024 End: 99-34-6262Cwfyjllzg aminotransferase [Enzymatic activity/volume] in Serum or Plasma by With P-5'-PAspartate Aminotransferase Lab Routine Hyperlipidemia, unspecified hyperlipidemia type Expected: 04/13/2024 (Approximate), Expires: 04/13/2025[facility] Work Phone: Comment on above:Expected: 04/13/2024 (Approximate), Expires: 04/13/2025Start: 04-13-2024 End: 43-10-1029Headd metabolic 2000 panel - Serum or PlasmaBasic Metabolic Panel Lab Routine Hyperlipidemia, unspecified hyperlipidemia type Expected: 04/13/2024 (Approximate), Expires: 04/13/2025[facility] Work Phone: Comment on above:Expected: 04/13/2024 (Approximate), Expires: 04/13/2025Start: 04-13-2024 End: 03-51-5627Asach 1996 panel - Serum or PlasmaLipid Panel Lab Routine Hyperlipidemia, unspecified hyperlipidemia type Expected: 04/13/2024 (Approx imate), Expires: 04/13/2025[facility] Work Phone: Comment on above:Expected: 04/13/2024 (Approximate), Expires: 04/13/2025Start: 10-10-0495KXOJZ-19 Vaccine ( season)COVID- 19 Vaccine ( season)[facility]: 92-09-9869ORG, Provider: Sy Person, Status: Pen, Time: 11:20 AMFUV, Provider: Sy Person, Status: Pen, Time: 11:20 AMMP-Located Within [facility] [place] 250 DO Work Phone: Start: 06-26-5641UAR, Provider: Sy Person, Status: Pen, Time: 10:50 AMFUV, Provider: Sy Person, Status: Pen, Time: 10:50 AMMP-Located Within [facility] 250 DO Work Phone: Start: 29-00-9702Nolgga Vaccines (1 of 2)Zoster Vaccines (1 of 2)[facility]: 21-58-2544Yrnpwvooa for malignant neoplasm of breastMammogramUnFort Hamilton Hospital: 77-42-1180Qytmjbchq for malignant neoplasm of cervixUnFort Hamilton Hospital: 64-52-5127Bjtcdnsxe B Vaccines (1 of 3 - 19+ 3-dose series) Hepatitis B Vaccines (1 of 3 - 19+ 3-dose series)[facility]: 94-37-0848Vcbvqnlvtmkk vaccinationPneumococcal Vaccine (1 of 2 - PCV)[facility]: 03-52-6032Ptcnoffc mellitus screeningDiabetes ScreeningSumma Health [facility]: 1984 Hepatitis C screeningHepatitis C ScreeningProMedica Bay Park Hospital Start: 68-21-0224Sgqbzjznttko Vaccine: Pediatrics (0 to 5 Years) and At-Risk Patients (6 to 64 Years) (1 of 2 - PCV)Pneumococcal Vaccine: Pediatrics (0 to 5 Years) and At-Risk Patients (6 to 64 Years) (1 of 2 - PCV)[facility]: 10-75-7663FLV Vaccines (1 of 1 - Standard series)MMR Vaccines (1 of 1 - Standard series)[facility]: 64-17-2739IVT screeningHIV ScreeningSumma Health [facility]: 12-04-5037Mtpbu panelLipid PanelSumma Health [facility]: 43-95-1937Nzwiwdtsh for malignant neoplasm of colonSumma Health [facility] Campus: 1966 Yearly Adult PhysicalYearly Adult PhysicalUnWVUMedicine [facility]icsC[facility] Work Phone: NEGATED: Highlighted row has been ruled out!Planned Goals not documentedSovah Health - DanvillesC[facility] Clinic [facility] Work Phone: Immunizations Immunization DateImmunizationNotesCare DhiyutoaPyfidckk50-18-3055Mudiyc-RvfZIcmh COVID-19 Vacc 30 MCG/0.3ML Intramuscular SuspensionDouglas M Hoy Work Phone: [phone]-Kwmke [place] [facility] [address] DO Work Phone: [phone]) [phone]-FsyIJnkb COVID-19 Vacc 30 MCG/0.3ML Intramuscular SuspensionDouglas M Hoy Work Phone: [facility]03-15-2021Pfizer- BioNTech COVID-19 Vacc 30 MCG/0.3ML Intramuscular SuspensionDouglas M Hoy Work Phone: [facility] Payers DatePayer CategoryPayerPolicy UN04-26-2785Wewm-ass [id number] Cross Blue Shield Managed CareANTHEM HMP [id number] [id number] [id number] 2.0.1.595004.3.57[id number] 2.16840.1.120756.3.57[id number] 2.840.1.895866.3.57[id number] 2.16840.1.357929.3.57[id number] 2.16840.1.357665.3.57[id number] 2.16840.1.919052.3.57[id number] 2.16840.1.085909.3.57[id number] 2.16840.1.418026.3.57[id number] 2.16840.1.505611.3.57[id number] 2..1.299454.3.57[id number] 2.0.1.094214.3.579.2.[id number] [id number] 2..1.875244.3.579.2.531 Social History DateTypeDetailFacilityStart: 80-53-4798Fh illicit drug useNo illicit drug use- Located Within [facility] [address] DO Work Phone: Comment on above:1 cup of coffee daily. 1-2 cans of diet pepsi daily;Start: 07-78-3992Zus [facility]igned At [facility]ass [facility] [employer] Other Start: 20-59-0605Egkupor smoking status NHISSmoker (finding)[facility] Inctart: 54-57-7787Vfz Assigned At FemaleSelect Medical Specialty [facility], Inctart: 08-02-8245Uohnwce smoking status NHISEx-smokerUnWright-Patterson Medical Center Work Phone: History of tobacco useCigarette SmokerUnWright-Patterson Medical Center Work Phone: Start: 75-62-5274Aogqdrn use and exposureSmokeless tobacco non-userUnWright-Patterson Medical Center Work Phone: Start: 04-13-2024 End: 45-28-2603Nasuebijq beverage intakeCurrent drinker of alcohol (finding) [facility] Work Phone: Start: 17-38-7479Wlubxrt Commentonce in awhile [facility] Work Phone: Start: 23-66-6890Mvs assigned at birthNot on file [facility] Work Phone: Start: 04-03-2024 End: 72-63-3135Symeclfb to SARS-CoV-2 (event)Not sureProMedica Bay Park HospitalStart: 24-75-2281Amzutmy smoking status NHISSmokes tobacco daily (finding)[facility], IncexFemale (finding)[facility] HospitalNEGATED: Highlighted row--[facility] [place] Work Phone: Medical Equipment Procedure CodeEquipment CodeEquipment Original TextEquipment IdentifierDates Drug-eluting coronary artery stent, yts-sqivsnxiyukro-cxebyss-coated ()[id number] FDAStart: 27-27-4244Rvursyh artery closure plug/patch, synthetic polymer()[id number] FDAStart: 02-26-2021 Button, Biceps 2.6 X 12mm Case [id number]: 60-56-2485Dzrkmzk on above:Description: Converted from [facility]. Please see archived information for full log information.Endeavor, Biocomposite Corkscrew Ft, 5.5 X 14.7mm, W/Two 1.3 S Case [id number]: 77-55-1526Rqpfyiz on above:Description: Converted from [facility]. Please see archived information for full log information.Drill Pin, Button, Biceps, 3.2mm Case [id number]: 60-40-6801Wijijji on above:Description: Converted from [facility]. Please see archived information for full log information. Functional Status DateAssessmentResultFacilityNEGATED: Highlighted rowFunctional performance Functional status health issues are not documented Work Phone: Mental Status DateAssessmentResultFacilityNEGATED: Highlighted rowCognitive function [Interpretation]Cognitive status health issues are not documented [facility] Work Phone: Clinical Notes 01-25-2023 to 02-15-2025 Note Date & KyxhIeffBqhorfvj19-63-2208 Evaluation + Plan note* Assessment & Plan Note - HARRIS Smith - 02/15/2025 2:52 PM EDTAssociated Problem(s): Hypersomnolence Hypersomnolence, BMI 42. She reports a positive nocturnal sleep study approximately 1 year ago, unfortunately she did not have insurance to follow-up with the inpatient testing. Will refer back over to sleep clinic for evaluation management. [facility] Work Phone: 1([phone]) 775-818906-17-2025 Miscellaneous Notes* Assessment & Plan Note - HARRIS Smith - 02/15/2025 2:52 PM EDTAssociated Problem(s): Hypersomnolence Hypersomnolence, BMI 42. She reports a positive nocturnal sleep study approximately 1 year ago, unfortunately she did not have insurance to follow-up with the inpatient testing. Will refer back over to sleep clinic for evaluation management. * Assessment & Plan Note - HARRIS Smith - 02/15/2025 2:51 PM EDT Associated Problem(s): BMI 40.0-44.9, adult (Multi) Reviewed the merits of healthy lifestyle choices on overall cardiovascular health. * Assessment & Plan Note - HARRIS Smith - 02/15/2025 2:51 PM EDT Associated Problem(s): HTN (hypertension) Optimal in office * Assessment & Plan Note - HARRIS Smith - 02/15/2025 2:51 PM EDT Associated Problem(s): Mixed hyperlipidemia High intensity statin We will be checking labs * Assessment & Plan Note - HARRIS Smith - 02/15/2025 2:51 PM EDT Associated Problem(s): Coronary artery disease involving [place] coronary artery of [place] heart without angina pectoris February 26, 2021 acute anterior STEMI managed emergently Dr. Person. Mid LAD PCI 6 Overton 3.5 x 22 mm Proximal RCA 30-50% Otherwise no residual coronary artery disease. Her prior angina symptom was hand and shoulder pain-denies any reoccurrence. Current daily activity greater than 4 METS documented in this [facility] Work Phone: 1(640) 104-711106-17-2025 Evaluation + Plan note* Assessment & Plan Note - HARRIS Smith - 02/15/2025 2:51 PM EDTAssociated Problem(s): BMI 40.0-44.9, adult (Multi) Reviewed the merits of healthy lifestyle choices on overall cardiovascular health. [facility] Work Phone: 1(239) 378-566306-17-2025 Evaluation + Plan note* Assessment & Plan Note - HARRIS Smith - 02/15/2025 2:51 PM EDTAssociated Problem(s): HTN (hypertension) Optimal in office [facility] Work Phone: 1([phone]) 483-631706-17-2025 Evaluation + Plan note* Assessment & Plan Note - HARRIS Smith - 02/15/2025 2:51 PM EDTAssociated Problem(s): Mixed hyperlipidemia High intensity statin We will be checking labs [facility] Work Phone: 1([phone]) 923-183206-17-2025 Evaluation + Plan note* Assessment & Plan Note - HARRIS Smith - 02/15/2025 2:51 PM EDTAssociated Problem(s): Coronary artery disease involving [place] coronary artery of [place] heart with out angina pectoris February 26, 2021 acute anterior STEMI managed emergently Dr. Person. Mid LAD PCI 6 Overton 3.5 x 22 mm Proximal RCA 30-50% Otherwise no residual coronary artery disease. Her prior angina symptom was hand and shoulder pain-denies any reoccurrence. Current daily activity greater than 4 METS [facility] Work Phone: 1([phone]) 396-796606-16-2025 History of Present illness Narrative* HARRIS Smith - 02/14/2025 1:30 PM EDT Chief Complaint Seem to be doing okay [...] cardiovascular complaints. 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 She tries to walk on a daily basis. She does housework and gardening. Goes up and down steps on a regular basis. Her prior angina symptom was handaching and shoulder pain-denies any reoccurrence, no no utilization of nitro. She has some concerns of some mild myalgia and is questioning if it could be due to statin. Will add CPK to labs. Otherwise, she had a positive nocturnal sleep study but ran out of healthcare and wasunable to complete inpatient study. Will refer back [...] tablet, Daily Assessment: Coronary artery disease involving [place] coronary artery of [place] heart without angina pectoris February 26, 2021 acute anterior STEMI managed emergently Dr. Person. Mid LAD PCI 6 Overton 3.5 x 22 mm Proximal RCA 30-50% [...] making process incorporating patients unique circumstances, the followingtreatment plan will be initiated: 1. Prescription drug management of cardiovascular medication for efficacy, adherence to treatment, side effect assessment and polypharmacy. Current treatment clinically warranted and to continue withfollowing modifications: - Change daily coreg 6.25mg to 3.125mg twice daily 2. Labs (lipids, CPK, chem6) 3. Referral to sleep medicine at [facility] (prior + home sleep study but was not able to follow up, hypersomnolence, BMI 42) 4. Return for follow-up; in the interim, contact the office if new symptoms arise. Dr. Person annual Albar[place] Olmedo MSN, MANAGER FAMILY-PAINT CREW SUPERVISOR, PMHNP-[facility] [place], [place] Please excuse any errors in grammar or translation related to this dictation. Voice recognition software was utilized to prepare this document. documented in this [facility] Work Phone: 1(101) 297-657206-16-2025 Instructions* Patient Instructions* HARRIS Smith - 02/14/2025 1:30 PM EDT [...] making process incorporating patients unique circumstances, the followingtreatment plan will be initiated: 1. Prescription drug management of cardiovascular medication for efficacy, adherence to treatment, side effect assessment and polypharmacy. Current treatment clinically warranted and to continue withfollowing modifications: - Change daily coreg 6.25mg to 3.125mg twice daily 2. Labs (lipids, CPK, chem6) 3. Referral to sleep medicine at [facility] (prior + home sleep study but was not able to follow up, hypersomnolence, BMI 42) 4. Return for follow-up; in the interim, contact the office if new symptoms arise. Dr. Person annual documented in this [facility] Work Phone: 1(352) 777-578508-13-2024 History of Present illness Narrative* Sy Person, - 04/13/2024 3:10 PM EDT Subjective Lucinda Nunez is a 58 y.o. female Chief Complaint Annual Exam 58-year-old female returns for follow-up after 2-year hiatus, she has had no hospitalizations, nitrate usage, cardiovascular events in the interim. In 2020 she sustained anterior STEMI with revascularization of the proximal LAD fortunately with preserved left ventricular function. She did follow-upwith nurse practitioner and myself once She has [...] Rfl: Assessment/Plan 1. Coronary artery disease involving [place] coronary artery of [place] heart without angina pectoris 2. Hyperlipidemia, unspecified hyperlipidemia type 3. Hypertension, unspecified type 4. S/P PTCA (percutaneous transluminal coronary angioplasty) 5. Snoring 6. Former smoker 7. BMI 40.0-44.9, adult (Multi) Scribe Attestation By signing my name below, I, Alisha Vick RN , Scribe attest that this documentation has been prepared under the direction and in the presence of Paulina Person DO. Provider Attestation - Scribe documentation All medical record entries made by the Scribe were at my direction and personally dictated by me. Ihave reviewed the chart and agree that the record accurately reflects my personal performance of the history, physical exam, discussion and plan. [facility] Work Phone: 1(258) 959-914908-13-2024 Instructions* Patient Instructions* Alisha Sloan RN - 04/13/2024 3:10 PM [...] on dietary changes Provided instructions on exercise. * Attachments The following attachments cannot be sent through Care Everywhere. * Heart Healthy Diet (Libyan) documented [facility] Work Phone: 1(228) 546-117411-26-2023 Evaluation note* Encounter Date Diagnosis Assessment Notes Treatment Notes Treatment Clinical Notes Jul, Acute sinusitis, rec urrence not specified, unspecified location (ICD-10 - J01.90) [...] days. May return to work on Friday [employer] Other 10-16-2023 History general Narrative - Reported* Type Description Date Medical History GERD Medical HistoryHYPERTENSIONMedical HistoryDEPRESSION AND ANXIETYMedical History COVID 6 WEEKS AGOSurgical HistoryLEFT SHOULDER ROTATOR CUFF X 2Surgical History RIGHT SHOULDER BICEP AND ROTATOR CUFFSurgical HistorySTENT PLACEMENT IN HEART Surgical HistoryKNEE SURGERY RIGHTSurgical HistoryTONSILSSurgical HistoryTUBES TIEDHospitalization HistorySEE ABOVE [employer] Other 09-11-2023 Evaluation note* Encounter Date Diagnosis Assessment Notes Treatment Notes Treatment Clinical Notes May, Left ankle pain, unspecified chr onicity (ICD-10 - M25.572) May,chilles tendinitis of left lower extremity (ICD-10 - M76.62) Achilles tendinopathy home care material was printed Drink plenty fluids, get plenty of rest. Continue home medications as prescribed. Take the Medrol Dosepak as prescribed until gone. You may take Tylenol as needed for pain. Follow-up with your familyphysician if no improvement in 2 to 3 days May,alcaneal spur, left (ICD-10 - M77.32) [employer] Other 05-27-2023 Evaluation note* Encounter Date Diagnosis Assessment Notes Treatment Notes Treatment Clinical Notes December, Sore throat (ICD-10 - J02.9) December,Right otitis media, unspecified otitis media type (ICD-10 - H66.91) Middle ear infection: adult home care material was printed Drink plenty fluids, get plenty of rest. Take the amoxicillin as prescribed until gone. Use eardrops as prescribed. Take Tylenol or Motrin as needed for aches pains or fevers. Follow-up with family physician if no improvement in 2 to 3 days December,cute otitis externa of right ear, unspecified type (ICD-10 - H60.501) [employer] Other Evaluation noteNo assessment information available [facility] Work Phone: Evaluation note* Diagnosis Coronary artery disease involving [place] coronary artery of [place] heart without angina pectoris Hyperlipidemia, unspecified hyperlipidemia type Hypertension, unspecified type S/P PTCA (percutaneous transluminal coronary angioplasty) Postsurgical percutaneous transluminal coronary angioplasty status Snoring Other dyspnea and respiratory abnormality Former smoker Personal history of tobacco use, presenting hazards to health BMI 40.0-44.9, adult (Multi) documented in this encounter [facility] Work Phone: Evaluation note* Diagnosis Hypersomnolence- Primary Hypersomnia, unspecified Mixed hyperlipidemia Coronary artery disease involving [place] coronary artery of [place] heart without angina pectoris Hypertension, unspecified type BMI 40.0-44.9, adult (Multi) documented in this encounter [facility] Work Phone: History general Narrative - Reported* Type Description Date Medical History GERD Medical HistoryHYPERTENSIONMedical HistoryDEPRESSION AND ANXIETYSurgical History LEFT SHOULDER ROTATOR CUFF X 2Surgical HistoryRIGHT SHOULDER BICEP AND ROTATOR CUFFSurgical HistorySTENT PLACEMENT IN HEARTSurgical HistoryKNEE SURGERY RIGHT Surgical HistoryTONSILSSurgical HistoryTUBES TIEDHospitalization HistorySEE ABOVE [employer] Other Reason for referral (narrative)* Consultation (Routine) - AuthorizedSpecialtyDiagnoses / ProceduresReferred By Contact Referred To [facility] Medicine Diagnoses Snoring Sy Person DO [address] [place] [address] Referral IDStatusReasonStart DateExpiration DateVisits RequestedVisits [id number] Specialty Services Required [facility] Work Phone: Reason for referral (narrative)No reason for referral information availableMer[facility] Work Phone: Summary Purpose Family History [...] malignant neoplasm of breast: Mother, Father(V16.3, Z80.3) Status:ActiveFamily history of cardiac disorder: Father(V17.49, Z82.49) Status:Active Unknown Family Member Name Dates Details Family history of cardiac di sorder: Father(V17.49, Z82.49) Status:ActiveFamily history of malignant neoplasm of breast: Mother, Father (V16.3, Z80.3) Status:Active Unknown Family Member Name Dates Details Family history of cardiac di sorder: Father(V17.49, Z82.49) Status:ActiveFamily history of malignant neoplasm of breast: Mother, Father (V16.3, Z80.3) Status:Active Unknown Family Member Name Dates Details Family history of malignant neoplasm of breast: Mother, Father(V16.3, Z80.3) Status:ActiveFamily history of cardiac disorder: Father(V17.49, Z82.49) Status:Active Unknown Family Member Name Dates Details Family history of cardiac di sorder: Father(V17.49, Z82.49) Status:ActiveFamily history of malignant neoplasm of breast: Mother, Father (V16.3, Z80.3) Status:Active Unknown Family Member Name Dates Details Family history of malignant neoplasm of breast: Mother, Father(V16.3, Z80.3) Status:ActiveFamily history of cardiac disorder: Father(V17.49, Z82.49) Status:Active Relationship Condition Age at Onset Recorded Date/T sonia father History of coronary artery bypass surgery Unknown Relationship Condition Age at Onset Recorded Date/T sonia father History of coronary artery bypass surgery Unknown fatherDeceasedUnknownHeart diseaseUnknownmotherMalignant neoplasmUnknown Malignant neoplasm of breastUnknown Advance Directives No Advanced Directives Records Found [...] tenodesis 5. Surgeon: Jazmin Bush M.D. Resident/Fellow/Other Corn Cutter Operator: Jazmin Morrow PA-C Anesthesia: Gen. to scalene block Estimated Blood Loss (mL): none Specimen: yes. Right shoulder proximal long head biceps tendon Findings: Right shoulder labral tear bicep tear rotator cuff tear and impingement Additional Details: Anderson Morrow physician assistant county engineer (PAC) was required and present throughout the entire case. Given the nature of the disease process and the procedure, a skilled surgical training specialist was necessary during the entire case. The ass (more content not included)... Note Post Operative Note: Post-Pr ocedure Diagnosis: Right carpal tunnel syndrome Procedure: 1. 2. 3. 4. 5. Surgeon: Theo Starks D.O. Resident/Fellow/Other Corn Cutter Operator: YIN Mullins Estimated Blood Loss (mL): Less than 10 cc Specimen: no Findings: Right carpal tunnel syndrome Operative Report Dictated: Dictation: not applicable - note contains Operative Report Operative Report: Preoperative diagnosis: Right carpal tunnel syndrome Postoperative diagnosis: Right carpal tunnel syndrome Procedure planned: Right carpal tunnel release Procedure performed: Right carpal tunnel release Surgeon: Theo Starks D.O. Corn Cutter Operator:YIN Mullins The physician assistant county engineer was present to the entire case. Given the nature of the disease process and the procedure to be performed a skilled nurse practitioner physician assistant was necessary during the case. The assistant county engineer was necessary in order to hold retractors and directly assist in the operation. A accountant certified public was at the back table managing instruments and s (more content not included)... Chief Complaint * LUCINDA NUNEZ is being seen for a 4 month follow-up of. * Patient is 55-year-old female who returns for 6-month follow-up and doing well. She had a anterior MO in January of this year underwent PCI [...] in 6 months on same therapies * LUCINDA NUNEZ is being seen for a 6 [...] upper respiratory complaints. * She sustained anterior MO in January 2021 with primary revascularization of [...] and will follow-up in 1 year * LUCINDA NUNEZ is being seen for a 6 [...] upper respiratory complaints. * She sustained anterior MO in January 2021 with primary revascularization of [...] exercise and will follow-up in 1 year Chief Complaint and Reason for Visit Chief Complaint Admit Date R92.8 March 24, 2025 9:33 am Additional Source Comments INFORMATION SOURCE (unrecogn ized section and content) DATE CREATED AUTHOR 08/14/2018 [facility] DATE CREATED AUTHOR AUTHOR'S ORGANIZ ATION 03/24/2020 [facility]3] DATE CREATED AUTHOR AUTHOR'S ORGANIZ ATION 05/19/2020 [facility] DATE CREATED AUTHOR AUTHOR'S ORGANIZ ATION 04/04/[address] [facility] DATE CREATED AUTHOR AUTHOR'S ORGANIZ ATION 08/21/2022 [facility] DATE CREATED AUTHOR AUTHOR'S ORGANIZ ATION 02/16/2025 [facility] DATE CREATED AUTHOR AUTHOR'S ORGANIZ ATION 03/30/2025 [facility] REASON FOR VISIT (unrecogniz ed section and content) ReasonCommentsAnnual ExamReasonCommentsAnnual Exam1 year follow up for cad Care Teams (unrecognized sec tion and content) Team Status: Active Member Role Status Dates Jasmina Cespedes MD Primary Care Provider Active Team Status: Inactive Member Role Status Dates Jasmina Cespedes MD Primary Care Provider Active Domenica Ramos RETAIL COSMETICS SALES COUNTER MANAGER-CAttending ProviderActiveTeam MemberRelationshipSpecialty Start DateEnd Date Jasmina Cespedes MD [address] [place] [address] PCP - General10/14/19Team MemberRelationshipSpecialtyStart DateEnd Date Jasmina Cespedes MD [address] [place] [address] PCP - General10/14/19 Team Status: Inactive Member Role Status Dates Jasmina Cespedes MD Primary Care Provider Active Start: March 24, 2025 End: March 24, 2025Doroman Cespedes MDAttending ProviderActiveStart: March 24, 2025 End: March 24, 2025 Goals (unrecognized section and content) Goals may [...] BE BASED ON THE PRIMARY CLINICAL RECORDS. [facility]. provides no warranty or guarantee of the accuracy or completeness of information in this document.
== END 2025-06-29 12:27 | disposition home or self-care (01) ==
LOC: FHNEUROLOG 12:26
PROVIDERS: PCP Nurse Practitioner; Visit Provider Psychiatry & Neurology Neurology
DX: G47.33 Obstructive sleep apnea (adult) (pediatric) (principal); G47.10 Hypersomnia, unspecified; R06.83 Snoring
CPT/HCPCS: G0463